=== PATIENT | male | born 1955 | race Caucasian/White ===

== ENCOUNTER 2018-04-22 15:50 | Inpatient (IN) ==
[2018-04-22] MEDS ORDERED: Morphine Inj 4 MG/ML Vial IV.PUSH ONE (16:10)
[2018-04-22] MEDS ORDERED: Sod Chloride 0.9% Inj 1,000 ML IV.SIG ONE ×2 (16:10)
[2018-04-22] MEDS ORDERED: Piperacil/Tazo 3.375 GM Premix 50 ML IV.SIG ONE (16:10)
[2018-04-22] MEDS ORDERED: Vancomycin Inj 1,000 MG in Sodium Chlor 0.9% Inj 250 ML IV.SIG ONE (16:10)
[2018-04-22] MEDS ORDERED: Acetaminophen 325 MG Tablet PO ONE ×2 (16:10→18:04)
--- NOTE | 2018-04-22 16:17 | ED ---
HPI General Chief complaint: Skin/Abscess/Foreign Body Stated complaint: Spider bite L thigh/swollen/discolored Time Seen by Provider: 04/22/18 16:02 Source: patient and RN notes reviewed Mode of arrival: ambulatory Limitations: no limitations History of Present Illness HPI narrative: 62-year-old male presents to the emergency department for evaluation of fever, cellulitis to the left thigh. Patient states that on Wednesday he started with a pustule to the left thigh. He went saw his primary care physician who placed him on Bactrim. He states his symptoms have been worsening. He went back to his primary care doctor today who referred him to the emergency department. Patient states fever started yesterday. He states he has been taking aspirin for his fever, last took yesterday. He has history of chronic pain, on [place], baclofen, morphine, hypertension. Current pain is 9/ 10. Moderate severity. MD complaint: Reports other (cellulitis left thigh) Onset (ago): day(s) (4) Location: Reports LLE Severity: moderate Severity scale (1-10): 10 Quality: Reports aching Pain Consistency: constant Relieving factors: none Exacerbating factors: none Context: Reports none Associated symptoms: Reports fever and chills Treatments prior to arrival: Reports antibiotic Related Data Home Medications Medication Instructions Recorded Confirmed baclofen 10 mg PO DAILY 04/22/18 04/22/18 celecoxib 200 mg PO BID 04/22/18 04/22/18 clonazepam 1 mg PO BID 04/22/18 04/22/18 hydrocodone-acetaminophen 1 tab PO Q6H 04/22/18 04/22/18 losartan 25 mg PO DAILY 04/22/18 04/22/18 morphine [MS Contin] 15 mg PO Q8H 04/22/18 04/22/18 pregabalin [Lyrica] 100 mg PO BID 04/22/18 04/22/18 sulfamethoxazole-trimethoprim 1 tab PO BID 04/22/18 04/22/18 [Bactrim DS] tamsulosin 0.4 mg PO DAILY 04/22/18 04/22/18 zolpidem 10 mg PO HS 04/22/18 04/22/18 Allergies Allergy/AdvReac Type Severity Reaction Status Date / Time No Known Allergies Allergy Verified 04/22/18 15:52 Review of Systems ROS: all other systems reviewed are negative PMFSH Medical History Medical History Arthritis (Acute) Hypertension (Acute) Surgical History Surgical History History of back surgery (Acute) History of neck surgery (Acute) Social History Social History Substance History: No History of Abuse Second Hand Smoke Exposure: No Smoking Status: Never smoker How Often Do You Have a Drink Containing Alcohol: Never Recent Travel in [facility] within the Last 8 Weeks: No Recent Out of Country Travel within the Last 8 Weeks: No Exam Narrative Exam Narrative: GENERAL: Well-nourished, well-developed ill-appearing male patient, temp of 102.9 SKIN: Focused skin assessment warm/dry. Patient has large area of erythema to the left anterior/medial thigh that measures approximately 21 cm x 23 cm with central area of induration, but no fluctuance. There is evidence of bulla within the erythematous region. No active drainage. HEAD: Normocephalic. Atraumatic. EYES: No scleral icterus. No injection or drainage. NECK: Supple, trachea midline. No JVD or lymphadenopathy. CARDIOVASCULAR: Regular rate and rhythm without murmurs, gallops, or rubs. Left pedal pulse is 2+. RESPIRATORY: Breath sounds equal bilaterally. No accessory muscle use. Lung sounds clear to auscultation. GASTROINTESTINAL: Abdomen soft, non-tender, nondistended. MUSCULOSKELETAL: No cyanosis, or edema. Neuro: Alert and oriented, but appears dazed. Motor and sensory testing WNL. No ataxia. No changes in speech. Course Initial Documented Vital Signs Temperature 102.9 F H 04/22/18 15:55 Pulse Rate 114 H 04/22/18 15:55 Respiratory Rate 18 04/22/18 15:55 Blood Pressure 172/86 H 04/22/18 15:55 Pulse Oximetry 96 04/22/18 15:55 Last Documented Vital Signs Temperature 102.9 F H 04/22/18 15:55 Pulse Rate 68 04/22/18 19:10 Respiratory Rate 16 04/22/18 19:10 Blood Pressure 160/83 H 04/22/18 19:10 Pulse Oximetry 96 04/22/18 17:01 Critical Care Time Critical Care Time: Yes Total Critical Care Time: 35 Attestation: Aggregate critical care time was 35 minutes. Time to perform other separately billable procedures was not included in the critical care time. My time did not include minutes spent treating any other patients simultaneously or on activities that did not directly contribute to the patient's treatment. The services I provided to this patient were to treat and/or prevent clinically significant deterioration that could result in: Disability, loss of life or limb I provided critical care services requiring my management, as noted below: Chart data review, documentation time, medication orders and management, vital sign assessments/reviewing monitor data, ordering and reviewing lab tests, ordering and interpreting/reviewing x-rays and diagnostic studies, care of the patient and discussion of the patient with the admitting physicians. Medical Decision Making VONNIE Attestation VONNIE supervised visit: Yes Attestation: I, Dr. Berrios, have reviewed the advance practice practitioner's documentation and am in agreement, met with the patient face to face, made the diagnosis, and the medical decision making was done by me. *My assessment and Findings: Patient is a 62-year-old male who presents with complaint of skin infection. On arrival he is tachycardic, febrile, ill- appearing and sepsis protocol was initiated. Exam is consistent with a skin infection with bulla in the area of erythema has been marked. He does have some pain on palpation outside of the erythematous areas. Labs are consistent with sepsis and infection. X-ray does not reveal any gas. CT shows infection deep to the muscle. Given patient's ill appearance I am concerned for cellulitis with likely bacteremia versus possible necrotizing fasciitis. I initially spoke with Dr. Ibarra, general surgery on-call, whom informed me that this would be a case for orthopedic surgery. I then spoke with Dr. Rojas, orthopedic surgeon on-call, whom recommended that the patient be emergently transferred to the main hospital and obtain an MRI as soon as possible. He has been hemodynamically stable and thus has been admitted to the hospitalist service at this time. MDM Narrative Medical decision making narrative: 62-year-old male presents to the emergency department for evaluation of fever, cellulitis left thigh. Patient has fever 1- 2.9, is tachycardic. Sepsis workup is initiated. IV access obtained. CBC, ESR , CMP, CRP, PTT, PT/INR, lactic acid, blood cultures x2 are ordered and pending. Patient is given normal saline 2 L IV bolus, vancomycin 1 g IV, Zosyn 3.375 g IV. CBC shows leukocytosis of 16.9. ESR is 11. CMP shows no acute abnormality. CRP is 16.50. Lactic acid is 2.1. PTT is 29.4. PT/INR is 12.5/1.2. X-ray of the left femur is negative. CT of the left femur with IV contrast is ordered and shows Impressive subcutaneous edema across the upper leg. The soft tissue edema does extend into the peripheral fibers of the vastus medialis muscle and the sartorius muscle without obvious drainable fluid collection or mass effect on the musculature My attending physician, Dr. Berrios, spoke with first with general surgery who referred to Ortho. Dr. Chaparro would like patient transferred [facility] and he will evaluate the patient there. Dr. Berrios admitted patient to Dr. Lopez. Medical Screen Exam Complete: Yes Emergency Medical Condition: Yes Differential Diagnosis Differential Diagnosis: Sepsis versus cellulitis versus abscess versus necrotizing fasciitis Medical Records Medical records reviewed: Yes I reviewed the patient's medical records. Lab Data Result diagrams: 04/22/18 16:10 04/22/18 16:10 Lab Results 04/22/18 04/22/18 04/22/18 Range/Units 16:10 16:10 16:10 CBC w Diff Auto diff final WBC 16.9 H (4.0-11.0) th/mm3 RBC 5.08 (4.50-5.90) mil/mm3 Hgb 15.4 (13.0-17.0) gm/dL Hct 46.7 (39.0-51.0) % MCV 91.9 (80.0-100.0) fL MCH 30.3 (27.0-34.0) pg MCHC 33.0 (32.0-36.0) % RDW 12.1 (11.6-17.2) % Plt Count 223 (150-450) th/mm3 MPV 8.6 (7.0-11.0) fL Neut % (Auto) 85.6 H (16.0-70.0) % Lymph % (Auto) 4.0 L (9.0-44.0) % [place] % (Auto) 7.2 (0.0-8.0) % Eos % (Auto) 0.0 (0.0-4.0) % Baso % (Auto) 3.2 H (0.0-2.0) % Neut # (Auto) 14.5 H (1.8-7.7) th/mm3 Lymph # (Auto) 0.7 L (1.0-4.8) th/mm3 [place] # (Auto) 1.2 H (0.0-0.9) th/mm3 Eos # (Auto) 0.0 (0.0-0.4) th/mm3 Baso # (Auto) 0.5 H (0.0-0.2) th/mm3 WBC Differential . Differential Comment . ESR (0-20) mm/hr PT 12.5 H (9.8-11.6) sec INR 1.2 Ratio APTT 29.4 (24.3-30.1) sec Sodium 135 L (136-145) meq/L Potassium 3.9 (3.5-5.1) meq/L Chloride 100 (98-107) meq/L Carbon Dioxide 25.9 (21.0-32.0) meq/L Anion Gap 9 (5-15) meq/L BUN 11 (7-18) mg/dL Creatinine 1.30 (0.60-1.30) mg/dL Estimated GFR 56 L (>89) mL/min Random Glucose 132 H (74-106) mg/dL Lactic Acid (0.4-2.0) mmol/L Calcium 8.7 (8.5-10.1) mg/dL Magnesium 1.9 (1.5-2.5) mg/dL Total Bilirubin 0.8 (0.2-1.0) mg/dL AST 23 (15-37) U/L ALT 100 H (12-78) U/L Alkaline Phosphatase 114 (45-117) U/L C-Reactive Protein (0.00-0.30) mg/dL Total Protein 7.4 (6.4-8.2) g/dL Albumin 3.4 (3.4-5.0) g/dL 04/22/18 04/22/18 04/22/18 Range/Units 16:10 16:10 16:10 CBC w Diff WBC (4.0-11.0) th/mm3 RBC (4.50-5.90) mil/mm3 Hgb (13.0-17.0) gm/dL Hct (39.0-51.0) % MCV (80.0-100.0) fL MCH (27.0-34.0) pg MCHC (32.0-36.0) % RDW (11.6-17.2) % Plt Count (150-450) th/mm3 MPV (7.0-11.0) fL Neut % (Auto) (16.0-70.0) % Lymph % (Auto) (9.0-44.0) % [place] % (Auto) (0.0-8.0) % Eos % (Auto) (0.0-4.0) % Baso % (Auto) (0.0-2.0) % Neut # (Auto) (1.8-7.7) th/mm3 Lymph # (Auto) (1.0-4.8) th/mm3 [place] # (Auto) (0.0-0.9) th/mm3 Eos # (Auto) (0.0-0.4) th/mm3 Baso # (Auto) (0.0-0.2) th/mm3 WBC Differential Differential Comment ESR 11 (0-20) mm/hr PT (9.8-11.6) sec INR Ratio APTT (24.3-30.1) sec Sodium (136-145) meq/L Potassium (3.5-5.1) meq/L Chloride (98-107) meq/L Carbon Dioxide (21.0-32.0) meq/L Anion Gap (5-15) meq/L BUN (7-18) mg/dL Creatinine (0.60-1.30) mg/dL Estimated GFR (>89) mL/min Random Glucose (74-106) mg/dL Lactic Acid 2.1 H (0.4-2.0) mmol/L Calcium (8.5-10.1) mg/dL Magnesium (1.5-2.5) mg/dL Total Bilirubin (0.2-1.0) mg/dL AST (15-37) U/L ALT (12-78) U/L Alkaline Phosphatase (45-117) U/L C-Reactive Protein 16.50 H (0.00-0.30) mg/dL Total Protein (6.4-8.2) g/dL Albumin (3.4-5.0) g/dL 04/22/18 Range/Units 18:50 CBC w Diff WBC (4.0-11.0) th/mm3 RBC (4.50-5.90) mil/mm3 Hgb (13.0-17.0) gm/dL Hct (39.0-51.0) % MCV (80.0-100.0) fL MCH (27.0-34.0) pg MCHC (32.0-36.0) % RDW (11.6-17.2) % Plt Count (150-450) th/mm3 MPV (7.0-11.0) fL Neut % (Auto) (16.0-70.0) % Lymph % (Auto) (9.0-44.0) % [place] % (Auto) (0.0-8.0) % Eos % (Auto) (0.0-4.0) % Baso % (Auto) (0.0-2.0) % Neut # (Auto) (1.8-7.7) th/mm3 Lymph # (Auto) (1.0-4.8) th/mm3 [place] # (Auto) (0.0-0.9) th/mm3 Eos # (Auto) (0.0-0.4) th/mm3 Baso # (Auto) (0.0-0.2) th/mm3 WBC Differential Differential Comment ESR (0-20) mm/hr PT (9.8-11.6) sec INR Ratio APTT (24.3-30.1) sec Sodium (136-145) meq/L Potassium (3.5-5.1) meq/L Chloride (98-107) meq/L Carbon Dioxide (21.0-32.0) meq/L Anion Gap (5-15) meq/L BUN (7-18) mg/dL Creatinine (0.60-1.30) mg/dL Estimated GFR (>89) mL/min Random Glucose (74-106) mg/dL Lactic Acid 1.5 (0.4-2.0) mmol/L Calcium (8.5-10.1) mg/dL Magnesium (1.5-2.5) mg/dL Total Bilirubin (0.2-1.0) mg/dL AST (15-37) U/L ALT (12-78) U/L Alkaline Phosphatase (45-117) U/L C-Reactive Protein (0.00-0.30) mg/dL Total Protein (6.4-8.2) g/dL Albumin (3.4-5.0) g/dL Imaging Data Radiologist's impression: Femur X-Ray 04/22/18 16:21 CONCLUSION: Negative examination Femur CT 04/22/18 16:57 CONCLUSION: 1. Impressive subcutaneous edema across the upper leg. The soft tissue edema does extend into the peripheral fibers of the vastus medialis muscle and the sartorius muscle without obvious drainable fluid collection or mass effect on the musculature. Discharge Plan Discharge Disposition Patient Disposition: [place] [facility] [place] Details Diagnosis: Sepsis affecting skin Physicians Team ED Provider: [place] Berrios ED Midlevel Provider: Lizet Sanchez Primary Care Provider: Reggie Escalante Attending Provider: Drake Lopez Other Providers: Cristhian Chaparro Status ED Status: Left Department Discharge Information Discharge Date/Time: 04/22/18 19:11
[2018-04-22 16:23] LABS: Baso # (Auto) 0.5 th/mm3 (0.0-0.2); Baso % (Auto) 3.2 % (0.0-2.0); Hematocrit 46.7 % (39.0-51.0); Hemoglobin 15.4 gm/dL (13.0-17.0); Lymph # (Auto) 0.7 th/mm3 (1.0-4.8); Mean Corpuscular Hemoglobin 30.3 pg (27.0-34.0); Mean Corpuscular Volume 91.9 fL (80.0-100.0); Mean Platelet Volume 8.6 fL (7.0-11.0); Mono # (Auto) 1.2 th/mm3 (0.0-0.9); Mono % (Auto) 7.2 % (0.0-8.0); Neut # (Auto) 14.5 th/mm3 (1.8-7.7); Neut % (Auto) 85.6 % (16.0-70.0); Platelet Count 223 th/mm3 (150-450); Red Blood Count 5.08 mil/mm3 (4.50-5.90); Red Cell Distribution Width 12.1 % (11.6-17.2); White Blood Count 16.9 th/mm3 (4.0-11.0)
[2018-04-22 16:31] LABS: Chloride 100 meq/L (98-107); Potassium 3.9 meq/L (3.5-5.1); Sodium 135 meq/L (136-145)
[2018-04-22 16:34] LABS: Albumin 3.4 g/dL (3.4-5.0); Anion Gap 9 meq/L (5-15); Blood Urea Nitrogen 11 mg/dL (7-18); Calcium 8.7 mg/dL (8.5-10.1); Carbon Dioxide 25.9 meq/L (21.0-32.0); Glucose,Random 132 mg/dL (74-106); Magnesium 1.9 mg/dL (1.5-2.5)
[2018-04-22 16:35] LABS: Activated Partial Thrombo Time 29.4 sec (24.3-30.1); INR 1.2 Ratio; Prothrombin Time 12.5 sec (9.8-11.6)
[2018-04-22 16:37] LABS: Alanine Aminotransferase 100 U/L (12-78); Aspartate Aminotransferase 23 U/L (15-37); Glomerular Filtration Rate 56 mL/min (>89)
[2018-04-22 16:39] LABS: Total Protein 7.4 g/dL (6.4-8.2)
[2018-04-22 16:40] LABS: Alkaline Phosphatase 114 U/L (45-117)
--- NOTE | 2018-04-22 16:54 | XR ---
EXAM DATE: 04/22/2018 4:21 PM EDT AGE/SEX: 62 years / Male INDICATIONS: Pain, swelling in left distal femur from spider bite CLINICAL DATA: This is the patient's initial encounter. Patient reports that signs and symptoms have been present for 1 day and indicates a pain score of 5/10. MEDICAL/SURGICAL HISTORY: None. None. COMPARISON: . FINDINGS: Bony structures are intact and in normal alignment. Osseous density is normal. Soft tissues are unre markable. No radiopaque foreign bodies seen. CONCLUSION: Negative examination Electronically signed by: Riley Zeng MD 04/22/2018 4:53 PM EDT
[2018-04-22] MEDS ORDERED: Clindamycin 900 mg/NS Premix 900 MG/50 ML PIGGYBACK IV.SIG ONE (17:15)
[2018-04-22] MEDS ORDERED: Vancomycin Consult Pharmacy OTHER PRN (17:53)
--- NOTE | 2018-04-22 17:59 | CT ---
EXAM DATE: 04/22/2018 5:09 PM EDT AGE/SEX: 62 years / Male INDICATIONS: Fever. Pain, redness and swelling of distal anterior left thigh. Evaluate for cellulit is. CLINICAL DATA: This is the patient's initial encounter. Patient reports that signs and symptoms have been present for 4 - 6 days and indicates a pain score of 9/10. MEDICAL/SURGICAL HISTORY: Hypertension. Fusion, cervical. Low back surgery. RADIATION DOSE: 15.72 CTDI (mGy) COMPARISON: No prior exams available for comparison. TECHNIQUE: Multiple contiguous axial images were acquired using a multirow detector CT scanner after the intravenous administration of 90 ml Omnipaque 350 (iohexol) nonionic water-soluble contrast as a single exam dose. Multiplanar reconstruction was performed in the sagittal and coronal planes. Usi ng automated exposure control and adjustment of the mA and/or kV according to patient size, radiation dose was kept as low as reasonably achievable to obtain optimal diagnostic quality images. DICOM fo rmat image data is available electronically for review and comparison. FINDINGS: Bones: The bony structures about the forefoot are in normal alignment. The metatarsi, phalanges, an d distal tarsal row osseous structures are intact. No fracture is seen. Joints: No significant arthropathy or bony hypertrophy is seen. Soft Tissues: There is marked soft tissue edema in the anterior and medial aspects of the lower leg. There is also marked edema laterally in the subcutaneous fat. The edema does extend into the vastus medialis muscle and within some of the fibers of the sartorius muscle. I do not see an obvious draina ble fluid collection. Other: No foreign bodies seen. Post Contrast: No abnormal areas of enhancement are seen in the marrow or soft tissues. The deep kaia ous system is patent. CONCLUSION: 1. Impressive subcutaneous edema across the upper leg. The soft tissue edema does extend into the pe ripheral fibers of the vastus medialis muscle and the sartorius muscle without obvious drainable flui d collection or mass effect on the musculature. Electronically signed by: Riley Zeng MD 04/22/2018 5:58 PM EDT
[2018-04-22] MEDS: Vancomycin Inj 1,500 MG in Sodium Chlor 0.9% Inj 500 ML IV.SIG SCH (21:23)
[2018-04-22] MEDS: Piperacil/Tazo 3.375 GM Premix 50 ML IV.SIG SCH (21:23)
[2018-04-22] MEDS: Sod Chloride 0.9% Inj 1,000 ML IV.CONT SCH (21:23)
--- NOTE | 2018-04-22 21:23 | MR ---
EXAM DATE: 04/22/2018 8:11 PM EDT AGE/SEX: 62 years / Male INDICATIONS: Left leg swelling around anterior distal thigh due to a spider bite five days ago. CLINICAL DATA: This is the patient's initial encounter. Patient reports that signs and symptoms have been present for 4 - 6 days and indicates a pain score of 8/10. MEDICAL/SURGICAL HISTORY: None. Fusion, cervical. Fusion, lumbar. COMPARISON: No prior exams available for comparison. TECHNIQUE: Multiplanar, multisequence MRI examination was performed without and with 10 ml Gadavist (gadobutrol) contrast as single exam dose. FINDINGS: There is extensive cellulitis involving the thigh subcutaneous tissues, especially medially. There ar e some nonloculated sheets of fluid in the deep subcutaneous tissues around the musculature but no lo culated rim-enhancing fluid is seen to suggest drainable abscess. There is a small knee joint effusio n. There is no significant marrow signal abnormality in the femur to suggest osteomyelitis. CONCLUSION: 1. Extensive cellulitis of the right thigh especially medially without evidence for osteomyelitis or discrete abscess. Electronically signed by: Lee Merino MD 04/22/2018 9:21 PM EDT
[2018-04-22] MEDS: Morphine Inj 4 MG/ML Vial IV.PUSH PRN (21:34)
[2018-04-22] MEDS: Acetaminophen 325 MG Tablet PO PRN (21:34)
[2018-04-22] MEDS ORDERED: Gadobutrol PF 10 MMOL/10 ML Vial (for RAD) IV.SIG ONE (21:47)
--- NOTE | 2018-04-22 22:46 | P.HPIM ---
History of Present Illness Service: [facility] Primary Care Physician: Reggie Escalante DO Chief Complaint: Left thigh discoloration, swelling, and pain History of Present Illness: Mr. Burris is a 62 year-old male with a history of arthritis, chronic back and neck pain, and hypertension who presented to the [place] [facility] complaining of fever (up to 103 starting 04/20), left thigh pain with purplish discoloration of skin, and swelling since Wednesday 04/18. He was found to have sepsis from left thigh cellulitis with concern for necrotizing fasciitis and was transferred to [facility] upon the recommendation of the orthopedic surgeon for further evaluation and management under the hospitalist service. MRI upon arrival showed extensive cellulitis of right thigh with no osteomyelitis or discrete abscess. The patient reports that symptoms began with a possible spider bite to left thigh. He was placed on bactrim by his PCP but his symptoms continued to progress and worsen throughout the week despite treatment. His temperature was 102.9 on arrival. Denies any history of diabetes mellitus. . Inpatient Certification: I certify that the inpatient services were ordered in accordance with Medicare regulations governing the order. This includes certification that hospital inpatient services are reasonable and necessary and in the case of services not specified as inpatient-only under 42 CFR 419.22(n), that they are appropriately provided as inpatient services in accordance to with the 2-midnight benchmark under 43 CFR 412.3(e) Estimated Total Length of Stay (Days): 3 Plans for Post Hospital Care: Home Review of Systems All other systems reviewed negative except as stated in HPI [facility] - History History Provided By: Patient - Medical History Medical History: Medical History (Last Reviewed 04/23/18 @ 03:59 by SHE oMrton) Arthritis Hypertension - Surgical History Surgical History: Surgical History (Last Reviewed 04/23/18 @ 03:59 by SHE Morton) History of back surgery History of neck surgery - Family History Family History: Family History (Last Updated 04/23/18 @ 04:00 by SHE Morton) Other Family history of cancer - Social History I have reviewed the patient's Social History: Yes - Tobacco History Second Hand Smoke Exposure: No Smoking Status: Never smoker - Alcohol History How Often Do You Have a Drink Containing Alcohol: Never - Substance Use History Substance History: No History of Abuse - Travel History Recent Travel in the [facility] Within the Last 8 Weeks: No Recent Travel Out of the Country Within the Last 8 Weeks: No - Immunization History Tetanus Immunization: Unsure Medications and Allergies Active Medications: Active Medications Acetaminophen (Tylenol) 650 mg PO Q4H PRN PRN Reason: fever Last Admin: 04/22/18 21:34 Dose: 650 mg Sodium Chloride (Ns Inj) 1,000 mls @ 125 mls/hr IV.CONT .Q8H MARYURI Last Admin: 04/22/18 21:23 Dose: 125 mls/hr Piperacillin/Tazobactam/Dextrose (Zosyn 3.375 Gm Premix) 50 mls @ 100 mls/hr IV.SIG Q6H MARYURI Last Infusion: 04/22/18 22:23 Dose: Infused Vancomycin HCl 1,500 mg/ (Sodium Chloride) 515 mls @ 250 mls/hr IV.SIG Q12H MARYURI Last Admin: 04/22/18 21:23 Dose: 250 mls/hr Miscellaneous Information ([facility] Ordered Lab Info) 1 each OTHER ONCE ONE Stop: 04/24/18 09:46 Morphine Sulfate (Morphine Inj) 2 mg IV.PUSH Q4H PRN PRN Reason: acute pain Last Admin: 04/22/18 21:34 Dose: 2 mg Ondansetron HCl (Zofran Inj) 4 mg IV.PUSH Q8H PRN PRN Reason: nausea Pharmacy Profile Note (Vancomycin Consult Pharmacy) 1 each OTHER UNSCH PRN PRN Reason: Pharmacy to dose Allergies Allergy/AdvReac Type Severity Reaction Status Date / Time No Known Allergies Allergy Verified 04/22/18 15:52 Home Medications Medication Instructions Recorded Confirmed Type baclofen 10 mg PO DAILY 04/22/18 04/22/18 History celecoxib 200 mg PO BID 04/22/18 04/22/18 History clonazepam 1 mg PO BID 04/22/18 04/22/18 History hydrocodone-acetaminophen 1 tab PO Q6H 04/22/18 04/22/18 History losartan 25 mg PO DAILY 04/22/18 04/22/18 History morphine [MS Contin] 15 mg PO Q8H 04/22/18 04/22/18 History pregabalin [Lyrica] 100 mg PO BID 04/22/18 04/22/18 History sulfamethoxazole-trimethoprim 1 tab PO BID 04/22/18 04/22/18 History [Bactrim DS] tamsulosin 0.4 mg PO DAILY 04/22/18 04/22/18 History zolpidem 10 mg PO HS 04/22/18 04/22/18 History Exam Vital signs: Vital Signs 04/22/18 15:55 04/22/18 16:35 04/22/18 17:01 Temperature 102.9 F H Pulse Rate 114 H 110 H 101 H Respiratory Rate 18 16 Blood Pressure 172/86 H 152/73 H Pulse Oximetry 96 96 04/22/18 17:02 04/22/18 19:10 04/22/18 21:00 Temperature 100.9 F H Pulse Rate 68 84 Respiratory Rate 16 16 18 Blood Pressure 160/83 H 142/67 H Pulse Oximetry 94 L Intake & Output 04/22/18 04/22/18 04/23/18 06:59 18:59 06:59 Intake Total 2049 300 / 300 Balance 2049 300 / 300 Weight 114.6 kg Intake: IV 2049 300 / 300 Zosyn 3.375 GM Premix 50 ML @ 50 / 50 50 / 50 100 mls/hr IV.SIG Q6H MARYURI Rx#: [id number] NS Inj 1,000 ML @ Wide Open IV. 1999 / 1999 SIG BOLUS ONE Rx#:[id number] Vancomycin Inj 1,000 MG In NS 250 / 250 Inj 250 ML @ 250 mls/hr IV.SIG ONCE ONE Rx#:[id number] Narrative: GENERAL: This is an overweight older male patient, in no apparent distress. SKIN: Left thigh with large erythematous area along with swelling and discomfort with palpation. The area has been marked with a marker -and affected area has not extended further and may have improved slightly. HEAD: Atraumatic. Normocephalic. EYES: No scleral icterus. No injection or drainage. ENT: Nose without bleeding, purulent drainage. NECK: Trachea midline. No JVD. CARDIOVASCULAR: Regular rate and rhythm without murmurs, gallops, or rubs. RESPIRATORY: Clear to auscultation. Breath sounds equal bilaterally. No wheezes , rales, or rhonchi. GASTROINTESTINAL: Abdomen soft, non-tender, nondistended. No guarding. MUSCULOSKELETAL: No calf tenderness. Moves all extremities well. NEUROLOGICAL: Awake and alert. Motor and sensory grossly within normal limits. Normal speech. . Results - Labs CBC & Chem 7: 04/22/18 16:10 04/22/18 16:10 Labs: Short CBC 04/22/18 Range/Units 16:10 WBC 16.9 H (4.0-11.0) th/mm3 Hgb 15.4 (13.0-17.0) gm/dL Hct 46.7 (39.0-51.0) % Plt Count 223 (150-450) th/mm3 BMP 04/22/18 16:10 Sodium 135 L Potassium 3.9 Chloride 100 Carbon Dioxide 25.9 BUN 11 Creatinine 1.30 Calcium 8.7 Liver Function 04/22/18 Range/Units 16:10 Total Bilirubin 0.8 (0.2-1.0) mg/dL AST 23 (15-37) U/L ALT 100 H (12-78) U/L Alkaline Phosphatase 114 (45-117) U/L Albumin 3.4 (3.4-5.0) g/dL - Imaging Impressions Femur MRI 04/22/18 00:00 CONCLUSION: 1. Extensive cellulitis of the right thigh especially medially without evidence for osteomyelitis or discrete abscess. Femur X-Ray 04/22/18 16:21 CONCLUSION: Negative examination Femur CT 04/22/18 16:57 CONCLUSION: 1. Impressive subcutaneous edema across the upper leg. The soft tissue edema does extend into the peripheral fibers of the vastus medialis muscle and the sartorius muscle without obvious drainable fluid collection or mass effect on the musculature. Caprini VTE Risk Assessment Caprini VTE Risk Assessment: Moderate/High Risk (score >= 2) Caprini Risk Assessment Model: Point Value = 1 Point Value = 2 Point Value = 3 Point Value = 5 Age 41-60 Minor surgery BMI > 25 kg/m2 Swollen legs Varicose veins or History of unexplained or recurrent spontaneous Oral contraceptives or hormone replacement Sepsis (< 1 month) Serious lung disease, including pneumonia (< 1 month) Abnormal pulmonary function Acute myocardial infarction Congestive heart failure (< 1 month) History of inflammatory bowel disease Medical patient at bed rest Age 61-74 Arthroscopic surgery Major open surgery (> 45 min) Laparoscopic surgery (> 45 min) Malignancy Confined to bed (> 72 hours) Immobilizing plaster cast Central venous access Age >= 75 History of VTE Family history of VTE Factor V Leiden Prothrombin [id number] Lupus anticoagulant Anticardiolipin antibodies Elevated serum homocysteine Heparin-induced thrombocytopenia Other congenital or acquired thrombophilia Stroke (< 1 month) Elective arthroplasty Hip, pelvis, or leg fracture Acute spinal cord injury (< 1 month) Prophylaxis Regimen: Total Risk Factor Score Risk Level Prophylaxis Regimen 0-1 Low Early ambulation 2 Moderate Order ONE of the following: *Sequential Compression Device (SCD) *Heparin 5000 units SQ BID 3-4 Higher Order ONE of the following medications: *Heparin 5000 units SQ TID *Enoxaparin/Lovenox 40 mg SQ daily (WT < 150 kg, CrCl > 30 mL/min) *Enoxaparin/Lovenox 30 mg SQ daily (WT < 150 kg, CrCl > 10-29 mL/min) *Enoxaparin/Lovenox 30 mg SQ BID (WT < 150 kg, CrCl > 30 mL/min) AND/OR *Sequential Compression Device (SCD) 5 or more Highest Order ONE of the following medications: *Heparin 5000 units SQ TID (Preferred with Epidurals) *Enoxaparin/Lovenox 40 mg SQ daily (WT < 150 kg, CrCl > 30 mL/min) *Enoxaparin/Lovenox 30 mg SQ daily (WT < 150 kg, CrCl > 10-29 mL/min) *Enoxaparin/Lovenox 30 mg SQ BID (WT < 150 kg, CrCl > 30 mL/min) AND *Sequential Compression Device (SCD) Assessment and Plan - Plan Mr. Burris is a 62 year-old male with a history of arthritis, chronic back and neck pain, and hypertension who presented to the [place] ER complaining of fever (up to 103 starting 04/20), left thigh pain with purplish discoloration of skin, and swelling since Wednesday 04/18. He was found to have sepsis from left thigh cellulitis with concern for necrotizing fasciitis and was transferred to [facility] upon the recommendation of the orthopedic surgeon for further evaluation and management under the hospitalist service. Sepsis secondary to left thigh cellulitis with concern for necrotizing fasciitis -Temperature 102.9 on arrival, WBC 16.9 with neutrophilia, lactic acid initially 2.1 (1.5 on repeat), CRP 16.5 -Left femur CT in ED showed "impressive subcutaneous edema across the upper leg. The soft tissue edema does extend into the peripheral fibers of the vastus medialis muscle and the sartorius muscle without obvious drainable fluid collection or mass-effect on the musculature." -continue Zosyn and Vancomycin, acetaminophen PRN fever -Dr. Chaparro was consulted in ED - recommended MRI and transfer to [facility] -MRI upon arrival at [facility] showed extensive cellulitis of right thigh with no osteomyelitis or discrete abscess -We will continue home chronic pain medications as verified by me on the needmade website for prescription narcotic monitoring (he has prescriptions for morphine sulfate sustained release 15 mg every 8 hours, [place] 10/325 every 6 hours, Ambien 10 mg qhs, and Klonopin 1 mg p.o. twice daily filled in April 2018) and will add morphine 2 mg IV every 4 hours as needed breakthrough pain -Await results of blood cultures -Continuous cardiac telemetry to monitor heart rate and rhythm -NPO except for medications until cleared by Dr. Chaparro/orthopedic surgeon -Repeat CBC in a.m. and follow results Hypertension -Continue home losartan -Monitor blood pressure readings -Adjust treatments as indicated DVT prophylaxis -SCDs on unaffected extremity ("nonoperative" leg) Discussed Condition With: patient and Dr. Pedro .
[2018-04-23] MEDS: Morphine Sulfate 15 MG SR Tablet PO SCH ×4 (00:30→22:48)
[2018-04-23] MEDS: Piperacil/Tazo 3.375 GM Premix 50 ML IV.SIG SCH ×4 (04:45→21:16)
[2018-04-23] MEDS: Sod Chloride 0.9% Inj 1,000 ML IV.CONT SCH ×3 (04:45→23:05)
[2018-04-23] MEDS: Morphine Inj 4 MG/ML Vial IV.PUSH PRN (04:48)
[2018-04-23] MEDS: Acetaminophen 325 MG Tablet PO PRN (06:46)
--- NOTE | 2018-04-23 06:52 | P.CONOP ---
[facility] Orthopedics Consult Note - [facility] Consult date: 04/23/18 Chief complaint: Sepsis, Cellulitis vs Necrotizing Fasciitis Narrative: This patient is a 62-year-old man who does have a history of arthritis, chronic back pain and neck pain and hypertension. The patient thinks he had a spider bite about 5 or 6 days ago. He developed a little bit of redness. He contacted his primary care physician he was placed on Bactrim but then unfortunately about 2-3 days ago the patient started developing much more significant redness and had rapid progression of pain, swelling and redness about the thigh. The patient was having a fever up to 103. The patient presented to the [facility] emergency room. A CT scan was obtained of the thigh. The [facility] emergency room contacted me we reviewed the results of the CT scan and the ER physician had determined that the patient's LRINEC score for necrotizing fasciitis was 5. I had recommended to obtain a stat MRI. They felt that this would be easy to obtain at the [facility] on a stat basis so we transferred the patient to the [facility]. The MRI was done last night. I did review the images. The patient states that now that he has been admitted to the hospital and on intravenous antibiotics he does feel little bit better and he feels like his fever is breaking. Review of Systems All other systems reviewed negative except as stated in [facility] PMFSH - History History Provided By: Patient - Medical History Medical History: Medical History (Last Reviewed 04/23/18 @ 06:45 by Cristhian Chaparro MD) Arthritis Hypertension - Surgical History Surgical History: Surgical History (Last Reviewed 04/23/18 @ 06:45 by Cristhian Chaparro MD) History of back surgery History of neck surgery - Family History Family History: Family History (Last Reviewed 04/23/18 @ 06:45 by Cristhian Chaparro MD) Other Family history of cancer - Tobacco History Second Hand Smoke Exposure: No Smoking Status: Never smoker - Alcohol History How Often Do You Have a Drink Containing Alcohol: Never - Substance Use History Substance History: No History of Abuse - Travel History Recent Travel in the [place] Within the Last 8 Weeks: No Recent Travel Out of the Country Within the Last 8 Weeks: No - Immunization History Tetanus Immunization: Unsure Medications and Allergies Active Medications: Active Medications Acetaminophen (Tylenol) 650 mg PO Q4H PRN PRN Reason: fever Last Admin: 04/22/18 21:34 Dose: 650 mg Hydrocodone Bitart/Acetaminophen ([place] 10/325) 1 tab PO Q6H PRN PRN Reason: pain > 4 Last Admin: 04/23/18 02:19 Dose: 1 tab Baclofen (Lioresal) 10 mg PO DAILY [facility] Clonazepam (Klonopin) 1 mg PO BID [facility] Sodium Chloride (Ns Inj) 1,000 mls @ 125 mls/hr IV.CONT .Q8H [facility] Last Infusion: 04/23/18 05:20 Dose: Infused Piperacillin/Tazobactam/Dextrose (Zosyn 3.375 Gm Premix) 50 mls @ 100 mls/hr IV.SIG Q6H [facility] Last Infusion: 04/23/18 05:20 Dose: Infused Vancomycin HCl 1,500 mg/ (Sodium Chloride) 515 mls @ 250 mls/hr IV.SIG Q12H [facility] Last Infusion: 04/23/18 00:15 Dose: Infused Losartan Potassium (Cozaar) 25 mg PO DAILY [facility] Miscellaneous Information ([facility] Ordered Lab Info) 1 each OTHER ONCE ONE Stop: 04/24/18 09:46 Morphine Sulfate (Morphine Inj) 2 mg IV.PUSH Q4H PRN PRN Reason: BREAKTHROUGH PAIN Last Admin: 04/23/18 04:48 Dose: 2 mg Morphine Sulfate (Oramorph Sr) 15 mg PO Q8H [facility] Last Admin: 04/23/18 00:30 Dose: 15 mg Ondansetron HCl (Zofran Inj) 4 mg IV.PUSH Q8H PRN PRN Reason: nausea Pharmacy Profile Note (Vancomycin Consult Pharmacy) 1 each OTHER UNSCH PRN PRN Reason: Pharmacy to dose Tamsulosin HCl (Flomax) 0.4 mg PO DAILY [facility] Zolpidem Tartrate (Ambien) 10 mg PO HS PRN PRN Reason: INSOMNIA Last Admin: 04/22/18 23:57 Dose: 10 mg Allergies Allergy/AdvReac Type Severity Reaction Status Date / Time No Known Allergies Allergy Verified 04/22/18 15:52 Home Medications Medication Instructions Recorded Confirmed Type baclofen 10 mg PO DAILY 04/22/18 04/22/18 History celecoxib 200 mg PO BID 04/22/18 04/22/18 History clonazepam 1 mg PO BID 04/22/18 04/22/18 History hydrocodone-acetaminophen 1 tab PO Q6H 04/22/18 04/22/18 History losartan 25 mg PO DAILY 04/22/18 04/22/18 History morphine [MS Contin] 15 mg PO Q8H 04/22/18 04/22/18 History pregabalin [Lyrica] 100 mg PO BID 04/22/18 04/22/18 History sulfamethoxazole-trimethoprim 1 tab PO BID 04/22/18 04/22/18 History [Bactrim DS] tamsulosin 0.4 mg PO DAILY 04/22/18 04/22/18 History zolpidem 10 mg PO HS 04/22/18 04/22/18 History Exam Vital signs: Vital Signs 04/22/18 15:55 04/22/18 16:35 04/22/18 17:01 Temperature 102.9 F H Pulse Rate 114 H 110 H 101 H Respiratory Rate 18 16 Blood Pressure 172/86 H 152/73 H Pulse Oximetry 96 96 04/22/18 17:02 04/22/18 19:10 04/22/18 21:00 Temperature 100.9 F H Pulse Rate 68 84 Respiratory Rate 16 16 18 Blood Pressure 160/83 H 142/67 H Pulse Oximetry 94 L Intake & Output 04/22/18 04/22/18 04/23/18 06:59 18:59 06:59 Intake Total 2049 2865 / 2865 Balance 2049 2865 / 2865 Weight 114.6 kg Intake: IV 2049 2865 / 2865 NS Inj 1,000 ML @ 125 mls/hr IV 1999 .CONT .Q8H [facility] Rx#:[id number] Zosyn 3.375 GM Premix 50 ML @ 50 / 50 100 / 100 100 mls/hr IV.SIG Q6H [facility] Rx#: [id number] NS Inj 1,000 ML @ Wide Open IV. 1999 SIG BOLUS ONE Rx#:[id number] Vancomycin Inj 1,000 MG In NS 250 / 250 Inj 250 ML @ 250 mls/hr IV.SIG ONCE ONE Rx#:[id number] Vancomycin Inj 1,500 MG In NS 515 / 515 Inj 500 ML @ 250 mls/hr IV.SIG Q12H [facility] Rx#:[id number] Narrative: GENERAL: The patient is awake, alert and oriented x3. The patient is in mild distress, and he does seem to have some chills PSYCHIATRIC: Normal affect, insight, and judgment. HEENT: Head is atraumatic. Oropharynx is moist. Extraocular muscles are intact. NECK: Non-tender and supple. LUNGS: No audible wheezing. He has normal inspiratory effort with no signs of dyspnea HEART: Regular rate and rhythm. ABDOMEN: Soft, nontender, and nondistended. BACK: No CVA tenderness. EXTREMITIES/SKIN/NEURO/VASCULAR: The left leg shows extensive cellulitis of the thigh concentrated mostly over the anteromedial aspect of the distal thigh. The cellulitis is outlined by a sharpie marker. There is one area with a cellulitis has reacted but then there is another area where it has extended beyond the lines that were drawn yesterday. I remove the Band-Aid and I found a wound which was about 1 cm x 1 cm with a little bit of central necrosis and as I palpated this area I was able to express a little bit of purulence. The surrounding subcutaneous tissue did feel very indurated and may have had a little bit of fluctuance to it. The knee still had fairly good range of motion with mild limitation. I did not appreciate a definitive effusion but it is hard to tell based on the exam. He does not have a lot of swelling down by the ankle. He moves the toes well. He has a 2+ dorsalis pedis pulse. Results - Labs Result Diagrams: 04/22/18 16:10 04/22/18 16:10 Labs: Laboratory Results - last 24 hr 04/22/18 04/22/18 04/22/18 16:10 16:10 16:10 CBC w Diff Auto diff final WBC 16.9 H RBC 5.08 Hgb 15.4 Hct 46.7 MCV 91.9 MCH 30.3 MCHC 33.0 RDW 12.1 Plt Count 223 MPV 8.6 Neut % (Auto) 85.6 H Lymph % (Auto) 4.0 L Hooker % (Auto) 7.2 Eos % (Auto) 0.0 Baso % (Auto) 3.2 H Neut # (Auto) 14.5 H Lymph # (Auto) 0.7 L Hooker # (Auto) 1.2 H Eos # (Auto) 0.0 Baso # (Auto) 0.5 H WBC Differential . Differential Comment . ESR PT 12.5 H INR 1.2 APTT 29.4 Sodium 135 L Potassium 3.9 Chloride 100 Carbon Dioxide 25.9 Anion Gap 9 BUN 11 Creatinine 1.30 Estimated GFR 56 L Random Glucose 132 H Lactic Acid Calcium 8.7 Magnesium 1.9 Total Bilirubin 0.8 AST 23 ALT 100 H Alkaline Phosphatase 114 C-Reactive Protein Total Protein 7.4 Albumin 3.4 04/22/18 04/22/18 04/22/18 16:10 16:10 16:10 CBC w Diff WBC RBC Hgb Hct MCV MCH MCHC RDW Plt Count MPV Neut % (Auto) Lymph % (Auto) Hooker % (Auto) Eos % (Auto) Baso % (Auto) Neut # (Auto) Lymph # (Auto) Hooker # (Auto) Eos # (Auto) Baso # (Auto) WBC Differential Differential Comment ESR 11 PT INR APTT Sodium Potassium Chloride Carbon Dioxide Anion Gap BUN Creatinine Estimated GFR Random Glucose Lactic Acid 2.1 H Calcium Magnesium Total Bilirubin AST ALT Alkaline Phosphatase C-Reactive Protein 16.50 H Total Protein Albumin 04/22/18 18:50 CBC w Diff WBC RBC Hgb Hct MCV MCH MCHC RDW Plt Count MPV Neut % (Auto) Lymph % (Auto) Hooker % (Auto) Eos % (Auto) Baso % (Auto) Neut # (Auto) Lymph # (Auto) Hooker # (Auto) Eos # (Auto) Baso # (Auto) WBC Differential Differential Comment ESR PT INR APTT Sodium Potassium Chloride Carbon Dioxide Anion Gap BUN Creatinine Estimated GFR Random Glucose Lactic Acid 1.5 Calcium Magnesium Total Bilirubin AST ALT Alkaline Phosphatase C-Reactive Protein Total Protein Albumin - Diagnostic results Imaging: Impressions Femur MRI 04/22/18 00:00 CONCLUSION: 1. Extensive cellulitis of the right thigh especially medially without evidence for osteomyelitis or discrete abscess. I reviewed the images. I am concerned potentially about fluid around the deep fascial layer Femur X-Ray 04/22/18 16:21 CONCLUSION: Negative examination I have reviewed the images for this radiology study. I agree with the interpretation given by the radiologist. Femur CT 04/22/18 16:57 CONCLUSION: 1. Impressive subcutaneous edema across the upper leg. The soft tissue edema does extend into the peripheral fibers of the vastus medialis muscle and the sartorius muscle without obvious drainable fluid collection or mass effect on the musculature. I have reviewed the images for this radiology study. I agree with the interpretation given by the radiologist. Assessment and Plan - Assessment and Plan 62-year-old man with likely spider bite and possible necrotizing fasciitis with significant cellulitis. We discussed that this is a serious condition effecting this patient's extremity. Nonoperative and operative options were discussed and reviewed. Potential consequences of both of these options were reviewed. This patient's LRINEC score of 5 is borderline for necrotizing fasciitis. The MRI is somewhat suspicious for this as well but does not reveal definitive abscess. The patient does have some purulence coming out of this wound on palpation. Based on all of these factors I do feel that it would be prudent to move forward with urgent surgical management. This would consist of an irrigation and debridement with possible placement of wound VAC. The patient understands he may require multiple surgeries and he may have an open wound which will need to be managed over time. The other option is to continue with the intravenous antibiotics and observe for the next 24 hours or so. The patient is agreeable to move forward with surgical management which at this point I feel is the most prudent option. This option does ultimately have the best chance of resolution of his condition. Since the patient did have a little bit of purulent drainage I do feel that this problem is more extensive than just standard cellulitis. I am also concerned that some of the cellulitis has progressed beyond the marking pen on his skin even though the patient has been on antibiotics. I explained to the patient that he may have a small incision but depending on intraoperative findings this incision could be quite extensive. The patient would like to move forward with urgent surgical management for this condition. This is surgery should be considered non-elective, given that this patient presented emergently to the hospital, and the decision to proceed with surgery was derived from this presentation. Significantly delaying surgery ( other than for medical clearance) has the potential to adversely effect the outcome for this patient's extremity. Management of pain associated with surgery will likely require the use of parental controlled substances. The risks and benefits of surgical management have been discussed in detail. The risks of surgery include, but are not limited to, injury to nerves, blood vessels, bleeding, infection, non-healing; loss of range on motion, dysfunction or weakness of the associated joints; blood clots, pneumonia, stroke, heart attack, and . - Attending Attestation Attending Attestation: A mid level provider in my office, nurse practitioner or PA, may see this patient on a follow up basis and continue to implement the plan including: starting or adjusting medications, injections of muscle, tendons, bursa or joints, cast application, orthotic or brace application, physical therapy, further radiographic studies including X-ray, MRI, CT, ultrasound or bone scan , vascular studies, neurological studies, or other specialist consultations, and proceeding with surgical management as appropriate.
[2018-04-23] MEDS ORDERED: HYDROmorphone PF Inj 2 MG/ML Vial ONE (07:24)
[2018-04-23] MEDS ORDERED: Sugammadex Inj 200 MG/2 ML Vial IV.PUSH ONE (07:24)
[2018-04-23] MEDS ORDERED: Chlorhexidine Gluconate 2% 1 Pack (2 Cloths) TOPICAL ONE (08:00)
[2018-04-23] MEDS ORDERED: Phenylephrine/NS 1000 MCG/10ML Syringe IV.PUSH ONE (08:25)
[2018-04-23] MEDS ORDERED: Lidocaine PF 1% Inj 5 ML Syringe OTHER ONE (08:25)
[2018-04-23] MEDS: Vancomycin Inj 1,500 MG in Sodium Chlor 0.9% Inj 500 ML IV.SIG SCH ×2 (08:40→20:38)
[2018-04-23 08:45] LABS: Baso % (Auto) 0.1 % (0.0-2.0); Hematocrit 38.7 % (39.0-51.0); Lymph # (Auto) 1.3 th/mm3 (1.0-4.8); Lymph % (Auto) 7.9 % (9.0-44.0); Mean Corpuscular HGB Conc 33.7 % (32.0-36.0); Mean Corpuscular Hemoglobin 31.1 pg (27.0-34.0); Mean Corpuscular Volume 92.2 fL (80.0-100.0); Mean Platelet Volume 8.7 fL (7.0-11.0); Mono % (Auto) 12.6 % (0.0-8.0); Neut # (Auto) 12.6 th/mm3 (1.8-7.7); Neut % (Auto) 79.4 % (16.0-70.0); Platelet Count 185 th/mm3 (150-450); Red Blood Count 4.19 mil/mm3 (4.50-5.90)
[2018-04-23 09:06] LABS: Calcium 7.9 mg/dL (8.5-10.1); Carbon Dioxide 27.1 meq/L (21.0-32.0)
--- NOTE | 2018-04-23 09:27 | P.OP ---
Preoperative Diagnosis: Thigh necrotizing fasciitis Postoperative Diagnosis: Same Date of procedure: 04/23/18 Procedure: Left thigh incision and debridement of necrotizing fasciitis with 10 cm incision and 40 cm x 40 cm square surface of debridement of necrotic fat Anesthesia: NATHANIEL Surgeon: Cristhian Chaparro MD Sort Line: SHE Ramires The surgical procedure was assisted by my Advanced Registered Nurse Practitioner. My SENIOR HADOOP DEVELOPER presence was necessary throughout this case for the manipulation and positioning of the surgical extremity. My SENIOR HADOOP DEVELOPER was assisting me throughout the duration of this procedure. The skill set of an Advance Registered Nurse Practitioner was medically necessary to complete this procedure. During the surgical case, the light technician was working at the back table and the Advance Registered Nurse Practitioner was directly assisting me. Estimated blood loss (mL): 150 Operation and Findings: The patient was brought back to the operative theater. General anesthesia was administered. The patient was on standing antibiotics. The left lower extremity was prepped and draped in usual sterile fashion. We made incision first centered over the area where the suspected spider bite had occurred which was in the center of the indurated and most red region by the distal medial thigh. As soon as we incised through this we found some purulent fluid. We ended up extending the incision for a total of approximately 10 cm. As we did this we found further purulent fluid. The purulent fluid followed the lines of the deep subcutaneous tissue along the border of the fascia. We found that there was significant fat necrosis and infection within this fatty layer. We took 4 swabs and 1 tissue culture. I probed with my fingers through the subcutaneous area and found multiple areas of loculations within the subcutaneous fat. The subcutaneous fat was very thickened compared to normal fat. It was also very edematous with what looked like purulent fluid within the fat. We debrided 40 cm x 40 cm of the subcutaneous fat both by digital debridement, sharp debridement, and use of abrading devices such as laparotomy pads and curettes. We did not find that the infection went deep to the fascia. After we finished debridement we irrigated the wound very thoroughly with saline and then applied a VAC device. Postoperative plan is for infectious disease consultation. This patient will likely require staged, planned repeat debridement with possible wound closure primarily versus secondarily.
[2018-04-23] MEDS ORDERED: Aluminum/Magnesium/Simethacone Susp 30 ML UDC PO PRN (09:32)
[2018-04-23] MEDS ORDERED: Bisacodyl 10 MG Supp RECTAL PRN (09:32)
[2018-04-23] MEDS ORDERED: Post-op Orders (for Pharmacy) OTHER STA (09:32)
[2018-04-23] MEDS ORDERED: fentaNYL Citrate Inj 100 MCG/2 ML Ampul ONE (09:45)
[2018-04-23] MEDS ORDERED: *morphine SULFATE 10 MG/ML PERIprocedure ONLY ONE (09:55)
[2018-04-23] MEDS: Baclofen 10 MG Tablet PO SCH (11:35)
[2018-04-23] MEDS: clonazePAM 1 MG Tablet PO SCH ×2 (11:36→20:37)
--- NOTE | 2018-04-23 13:32 | P.CONID ---
History of Present Illness Service: Infectious disease Consult date: 04/23/18 Requesting Physician: Cristhian Chaparro Reason for Consult: Evaluate patient with necrotizing fasciitis Primary Care Provider: Reggie Escalante DO Chief Complaint: Left thigh discoloration, swelling, and pain History of Present Illness: Patient seen and examined. Records reviewed. Patient is a 62-year-old male, presented to the hospital for further evaluation of progressive swelling redness and discoloration on his left thigh. Patient noted initially what looks like a puncture wound on his medial left thigh. He went to his primary care doctor, and was given a prescription for Bactrim. Patient stated that there was no redness. It has a brownish color to it. Over the next day, he developed increasing redness, swelling, and there was an area that looks purplish in color. He was also getting painful. He was also having fever and chills, with temperature documented to around 102. He has not had any sore throat or any respiratory complaint. No nausea or vomiting or any diarrhea. He denies any urinary complaints. He does not remember having any insect bite, or any trauma to his left lower extremity. Patient was seen by orthopedic, and there was some concern about progressive infection, and he went to surgery today. He apparently had findings of necrotizing fasciitis, and there was significant purulence seen. He has a wound VAC in place. His white count is elevated. He has been febrile. He is currently on Zosyn and vancomycin. Infectious disease consultation has been requested to evaluate the patient. Review of Systems Constitutional: Reports chills, Reports fatigue, Reports fever(s), Reports malaise Eyes: Denies discharge, Denies dry eyes Ears, Nose, Mouth, and Throat: Denies difficulty swallowing, Denies ear discharge, Denies ear pain, Denies mouth pain, Denies nasal discharge, Denies sore throat Cardiovascular: Denies chest pain, Denies shortness of breath Respiratory: Denies chest congestion, Denies cough, Denies shortness of breath Gastrointestinal: Denies abdominal pain, Denies loose stools, Denies nausea, Denies pain with swallowing, Denies vomiting Genitourinary: Denies difficulty urinating, Denies painful urination, Denies urinary frequency Musculoskeletal: Reports joint pain, Reports joint swelling Skin/Breast: Reports rash, Reports skin pain Neurologic: Denies dizziness PMFSH - History History Provided By: Patient - Medical History Medical History: Medical History (Last Reviewed 04/23/18 @ 13:31 by Brianne Jaramillo MD) Arthritis Hypertension - Surgical History Surgical History: Surgical History (Last Reviewed 04/23/18 @ 13:31 by Brianne Jaramillo MD) History of back surgery History of neck surgery - Family History Family History: Family History (Last Reviewed 04/23/18 @ 13:31 by Brianne Jaramillo MD) Other Family history of cancer - Tobacco History Second Hand Smoke Exposure: No Smoking Status: Never smoker - Alcohol History How Often Do You Have a Drink Containing Alcohol: Never - Substance Use History Substance History: No History of Abuse - Travel History Recent Travel in the [place] Within the Last 8 Weeks: No Recent Travel Out of the Country Within the Last 8 Weeks: No - Immunization History Tetanus Immunization: Unsure Medications and Allergies Active Medications: Active Medications Acetaminophen (Tylenol) 650 mg PO Q4H PRN PRN Reason: fever Last Admin: 04/23/18 06:46 Dose: 650 mg Hydrocodone Bitart/Acetaminophen ([place] 10/325) 1 tab PO Q6H PRN PRN Reason: pain > 4 Last Admin: 04/23/18 02:19 Dose: 1 tab Al Hydrox/Mg Hydrox/Simethicone (Mag-Al Plus Susp Liq) 30 ml PO Q6H PRN PRN Reason: INDIGESTION Al Hydroxide/Mg Hydroxide (Milk Of Magnesia Liq) 30 ml PO BID PRN PRN Reason: Mild Constipation Baclofen (Lioresal) 10 mg PO DAILY [facility] Last Admin: 04/23/18 11:35 Dose: 10 mg Bisacodyl (Dulcolax Supp) 10 mg RECTAL DAILY PRN PRN Reason: SEVERE CONSITIPATION Clonazepam (Klonopin) 1 mg PO BID [facility] Last Admin: 04/23/18 11:36 Dose: 1 mg Diphenhydramine HCl (Benadryl) 25 mg PO Q6H PRN PRN Reason: ITCHING Sodium Chloride (Ns Inj) 1,000 mls @ 125 mls/hr IV.CONT .Q8H [facility] Last Admin: 04/23/18 11:37 Dose: 125 mls/hr Piperacillin/Tazobactam/Dextrose (Zosyn 3.375 Gm Premix) 50 mls @ 100 mls/hr IV.SIG Q6H [facility] Last Admin: 04/23/18 11:34 Dose: 100 mls/hr Vancomycin HCl 1,500 mg/ (Sodium Chloride) 515 mls @ 250 mls/hr IV.SIG Q12H [facility] Last Admin: 04/23/18 08:40 Dose: 500 mls/hr Lactated Ringer's (Lr 1000 Ml Inj) 1,000 mls @ 30 mls/hr IV.CONT .Q24H [facility] Stop: 04/24/18 07:59 Last Admin: 04/23/18 10:10 Dose: 30 mls/hr Lactated Ringer's (Lr 1000 Ml Inj) 1,000 mls @ 80 mls/hr IV.CONT .[id number] [facility] Last Admin: 04/23/18 11:36 Dose: 80 mls/hr Lactulose (Lactulose Liq) 30 ml PO DAILY PRN PRN Reason: SEVERE CONSITIPATION Losartan Potassium (Cozaar) 25 mg PO DAILY [facility] Last Admin: 04/23/18 11:35 Dose: 25 mg Miscellaneous Information ([facility] Ordered Lab Info) 1 each OTHER ONCE ONE Stop: 04/24/18 09:46 Miscellaneous Information ([facility]) 0 each OTHER UNSCH PRN PRN Reason: SEE LABEL COMMENTS Stop: 04/24/18 09:39 Morphine Sulfate (Oramorph Sr) 15 mg PO Q8H [facility] Last Admin: 04/23/18 06:46 Dose: 15 mg Morphine Sulfate (Morphine Inj) 2 mg IV.PUSH Q3H PRN PRN Reason: BREAKTHROUGH PAIN Multivitamins/Minerals (Theragran-M) 1 tab PO BID [facility] Stop: 06/22/18 20:59 Ondansetron HCl (Zofran Inj) 4 mg IV.PUSH Q8H PRN PRN Reason: nausea Ondansetron HCl (Zofran Inj) 4 mg IV.PUSH Q6H PRN PRN Reason: NAUSEA OR VOMITING Pharmacy Profile Note (Vancomycin Consult Pharmacy) 1 each OTHER UNSCH PRN PRN Reason: Pharmacy to dose Senna/Docusate Sodium (Enedina-Colace) 1 tab PO BID [facility] Sennosides (Senokot) 17.2 mg PO BID PRN PRN Reason: Moderate Constipation Sodium Chloride (Ns Flush) 2 ml IV.FLUSH BID [facility] Sodium Chloride (Ns Flush) 2 ml IV.FLUSH PRN PRN PRN Reason: FLUSH AFTER USING IV ACCESS Tamsulosin HCl (Flomax) 0.4 mg PO DAILY [facility] Last Admin: 04/23/18 11:35 Dose: 0.4 mg Zolpidem Tartrate (Ambien) 10 mg PO HS PRN PRN Reason: INSOMNIA Last Admin: 04/22/18 23:57 Dose: 10 mg Zolpidem Tartrate (Ambien) 5 mg PO HS PRN PRN Reason: INSOMNIA Allergies Allergy/AdvReac Type Severity Reaction Status Date / Time No Known Allergies Allergy Verified 04/22/18 15:52 Home Medications Medication Instructions Recorded Confirmed Type baclofen 10 mg PO DAILY 04/22/18 04/22/18 History celecoxib 200 mg PO BID 04/22/18 04/22/18 History clonazepam 1 mg PO BID 04/22/18 04/22/18 History hydrocodone-acetaminophen 1 tab PO Q6H 04/22/18 04/22/18 History losartan 25 mg PO DAILY 04/22/18 04/22/18 History morphine [MS Contin] 15 mg PO Q8H 04/22/18 04/22/18 History pregabalin [Lyrica] 100 mg PO BID 04/22/18 04/22/18 History sulfamethoxazole-trimethoprim 1 tab PO BID 04/22/18 04/22/18 History [Bactrim DS] tamsulosin 0.4 mg PO DAILY 04/22/18 04/22/18 History zolpidem 10 mg PO HS 04/22/18 04/22/18 History Exam Vital signs: Vital Signs 04/22/18 15:55 04/22/18 16:35 04/22/18 17:01 Temperature 102.9 F H Pulse Rate 114 H 110 H 101 H Respiratory Rate 18 16 Blood Pressure 172/86 H 152/73 H Pulse Oximetry 96 96 04/22/18 17:02 04/22/18 19:10 04/22/18 21:00 Temperature 100.9 F H Pulse Rate 68 84 Respiratory Rate 16 16 18 Blood Pressure 160/83 H 142/67 H Pulse Oximetry 94 L 04/23/18 00:00 04/23/18 04:00 04/23/18 08:00 Temperature 101.1 F H 99.1 F 98.5 F Pulse Rate 83 82 79 Respiratory Rate 19 19 16 Blood Pressure 129/60 107/51 L 111/58 L Pulse Oximetry 94 L 94 L 96 04/23/18 09:40 04/23/18 09:45 04/23/18 10:00 Temperature 98.1 F Pulse Rate 88 88 72 Respiratory Rate 16 16 16 Blood Pressure 104/59 L 104/54 L 92/50 L Pulse Oximetry 95 95 95 04/23/18 10:15 Temperature Pulse Rate 72 Respiratory Rate 16 Blood Pressure 96/55 L Pulse Oximetry 96 Intake & Output 04/22/18 04/23/18 04/23/18 18:59 06:59 18:59 Intake Total 2049 2865 / 2865 300 / 300 Output Total 50 / 50 Balance 2049 2865 / 2865 250 / 250 Weight 114.6 kg 116.4 kg Intake: IV 2049 2865 / 2865 NS Inj 1,000 ML @ 125 mls/hr IV 1999 .CONT .Q8H [facility] Rx#:[id number] Zosyn 3.375 GM Premix 50 ML @ 50 / 50 100 / 100 100 mls/hr IV.SIG Q6H [facility] Rx#: [id number] NS Inj 1,000 ML @ Wide Open IV. 1999 [facility] Rx#:[id number] Vancomycin Inj 1,000 MG In NS 250 / 250 Inj 250 ML @ 250 mls/hr IV.SIG ONCE [facility] Rx#:[id number] Vancomycin Inj 1,500 MG In NS 515 / 515 Inj 500 ML @ 250 mls/hr IV.SIG Q12H [facility] Rx#:[id number] Oral 0 / 0 Anesthesia Amount 300 / 300 Output: Estimated Blood Loss 50 / 50 Other: Mode Setting Left Thigh Continuous # Voids 1 Narrative: Physical Examination GENERAL: Patient is a well-nourished, well-developed male, awake and alert, not in respiratory distress. SKIN: Warm and dry. No generalized rash, no ecchymoses and no evidence of embolic lesions. HEAD: Atraumatic. Normocephalic. No temporal wasting, or tenderness. EYES: [place] conjunctiva. No petechia or hemorrhage. Pupils equal, round and reactive to light. Extraocular movements full and intact. No scleral icterus. No injection or drainage. EARS, NOSE AND THROAT: Nose without bleeding or purulent nasal discharge. No sinus tenderness. Mucous membranes pink and moist. No oral lesions noted. No exudate. No oral thrush. NECK: Trachea midline. Supple and not tender, no meningeal signs CARDIOVASCULAR: Regular rate and rhythm. No murmurs, rubs or gallops heard RESPIRATORY: Clear to auscultation. Breath sounds equal bilaterally. No rales , wheezing or rhonchi ABDOMEN: Soft, non-tender, nondistended. Bowel sounds present and normoactive. No guarding. No rebound. No organomegaly. EXTREMITIES: No clubbing, cyanosis. LLE is swollen, in his L knee and L thigh, there is marked edema, with indurated skin and has ecchymoses laterak L knee and distal medial thigh. There is wound vac in place. No calf tenderness. Well perfused and warm. NEUROLOGICAL: Awake and alert. Cranial nerves grossly intact. Motor grossly within normal limits. PSYCHIATRIC: Normal affect, calm and cooperative. LINE: No evidence of infection Results - Labs CBC & Chem 7: 04/23/18 06:27 04/23/18 06:27 Labs: Laboratory Results - last 24 hr 04/22/18 04/22/18 04/22/18 16:10 16:10 16:10 CBC w Diff Auto diff final WBC 16.9 H RBC 5.08 Hgb 15.4 Hct 46.7 MCV 91.9 MCH 30.3 MCHC 33.0 RDW 12.1 Plt Count 223 MPV 8.6 Neut % (Auto) 85.6 H Lymph % (Auto) 4.0 L [place] % (Auto) 7.2 Eos % (Auto) 0.0 Baso % (Auto) 3.2 H Neut # (Auto) 14.5 H Lymph # (Auto) 0.7 L [place] # (Auto) 1.2 H Eos # (Auto) 0.0 Baso # (Auto) 0.5 H WBC Differential . Differential Comment . ESR PT 12.5 H INR 1.2 APTT 29.4 Sodium 135 L Potassium 3.9 Chloride 100 Carbon Dioxide 25.9 Anion Gap 9 BUN 11 Creatinine 1.30 Estimated GFR 56 L Random Glucose 132 H Lactic Acid Calcium 8.7 Magnesium 1.9 Total Bilirubin 0.8 AST 23 ALT 100 H Alkaline Phosphatase 114 C-Reactive Protein Total Protein 7.4 Albumin 3.4 04/22/18 04/22/18 04/22/18 16:10 16:10 16:10 CBC w Diff WBC RBC Hgb Hct MCV MCH MCHC RDW Plt Count MPV Neut % (Auto) Lymph % (Auto) [place] % (Auto) Eos % (Auto) Baso % (Auto) Neut # (Auto) Lymph # (Auto) [place] # (Auto) Eos # (Auto) Baso # (Auto) WBC Differential Differential Comment ESR 11 PT INR APTT Sodium Potassium Chloride Carbon Dioxide Anion Gap BUN Creatinine Estimated GFR Random Glucose Lactic Acid 2.1 H Calcium Magnesium Total Bilirubin AST ALT Alkaline Phosphatase C-Reactive Protein 16.50 H Total Protein Albumin 04/22/18 04/23/18 04/23/18 18:50 06:27 06:27 CBC w Diff WBC 16.0 H RBC 4.19 L Hgb 13.0 D Hct 38.7 L MCV 92.2 MCH 31.1 MCHC 33.7 RDW 13.0 Plt Count 185 MPV 8.7 Neut % (Auto) 79.4 H Lymph % (Auto) 7.9 L [place] % (Auto) 12.6 H Eos % (Auto) 0.0 Baso % (Auto) 0.1 Neut # (Auto) 12.6 H Lymph # (Auto) 1.3 [place] # (Auto) 2.0 H Eos # (Auto) 0.0 Baso # (Auto) 0.0 WBC Differential . Differential Comment Auto diff final ESR PT INR APTT Sodium 139 Potassium 4.0 Chloride 105 Carbon Dioxide 27.1 Anion Gap 7 BUN 13 Creatinine 1.10 Estimated GFR 68 L Random Glucose 90 Lactic Acid 1.5 Calcium 7.9 L D Magnesium Total Bilirubin AST ALT Alkaline Phosphatase C-Reactive Protein Total Protein Albumin - Imaging Impressions Femur MRI 04/22/18 00:00 CONCLUSION: 1. Extensive cellulitis of the right thigh especially medially without evidence for osteomyelitis or discrete abscess. Femur X-Ray 04/22/18 16:21 CONCLUSION: Negative examination Femur CT 04/22/18 16:57 CONCLUSION: 1. Impressive subcutaneous edema across the upper leg. The soft tissue edema does extend into the peripheral fibers of the vastus medialis muscle and the sartorius muscle without obvious drainable fluid collection or mass effect on the musculature. Assessment and Plan - Plan Impression Necrotizing fasciitis L thigh Sepsis due to above Fevers leukocytosis Recommendation Continue vanco Continue Zosyn Short course of Clindamycin Follow C/S and adjust Abx Monitor progress I will follow along with you and determine course of Rx Thank you for this consultation Explained plan to the patient
--- NOTE | 2018-04-23 15:33 | P.PN ---
Subjective Interval history: Follow up Necrotizing Fasciitis left thigh/sepsis 04/23/18-patient seen and examined; s/p Left thigh incision and debridement of necrotizing fasciitis with 10 cm incision and 40 cm x 40 cm square surface of debridement of necrotic fat Physical Exam Vital signs: Vital Signs 04/22/18 15:55 04/22/18 16:35 04/22/18 17:01 Temperature 102.9 F H Pulse Rate 114 H 110 H 101 H Respiratory Rate 18 16 Blood Pressure 172/86 H 152/73 H Pulse Oximetry 96 96 04/22/18 17:02 04/22/18 19:10 04/22/18 21:00 Temperature 100.9 F H Pulse Rate 68 84 Respiratory Rate 16 16 18 Blood Pressure 160/83 H 142/67 H Pulse Oximetry 94 L 04/23/18 00:00 04/23/18 04:00 04/23/18 08:00 Temperature 101.1 F H 99.1 F 98.5 F Pulse Rate 83 82 79 Respiratory Rate 19 19 16 Blood Pressure 129/60 107/51 L 111/58 L Pulse Oximetry 94 L 94 L 96 04/23/18 09:40 04/23/18 09:45 04/23/18 10:00 Temperature 98.1 F Pulse Rate 88 88 72 Respiratory Rate 16 16 16 Blood Pressure 104/59 L 104/54 L 92/50 L Pulse Oximetry 95 95 95 04/23/18 10:15 04/23/18 12:00 Temperature 97.4 F L Pulse Rate 72 71 Respiratory Rate 16 16 Blood Pressure 96/55 L 101/55 L Pulse Oximetry 96 97 Intake & Output 04/22/18 04/23/18 04/23/18 18:59 06:59 18:59 Intake Total 2049 2865 / 2865 300 / 300 Output Total 50 / 50 Balance 2049 2865 / 2865 250 / 250 Weight 114.6 kg 116.4 kg Intake: IV 2049 2865 / 2865 NS Inj 1,000 ML @ 125 mls/hr IV 1999 .CONT .Q8H [facility] Rx#:[id number] Zosyn 3.375 GM Premix 50 ML @ 50 / 50 100 / 100 100 mls/hr IV.SIG Q6H [facility] Rx#: [id number] NS Inj 1,000 ML @ Wide Open IV. 1999 SIG BOLUS ONE Rx#:[id number] Vancomycin Inj 1,000 MG In NS 250 / 250 Inj 250 ML @ 250 mls/hr IV.SIG ONCE ONE Rx#:[id number] Vancomycin Inj 1,500 MG In NS 515 / 515 Inj 500 ML @ 250 mls/hr IV.SIG Q12H [facility] Rx#:[id number] Oral 0 / 0 Anesthesia Amount 300 / 300 Output: Estimated Blood Loss 50 / 50 Other: Mode Setting Left Thigh Continuous # Voids 1 Narrative: GENERAL: NAD SKIN: Warm and dry. HEAD: Atraumatic. Normocephalic. EYES: Pupils equal and round. No scleral icterus. No injection or drainage. ENT: No nasal bleeding or discharge. Mucous membranes pink and moist. NECK: Trachea midline. No JVD. CARDIOVASCULAR: Regular rate and rhythm. RESPIRATORY: No accessory muscle use. Clear to auscultation. Breath sounds equal bilaterally. GASTROINTESTINAL: Abdomen soft, non-tender, nondistended. Hepatic and splenic margins not palpable. MUSCULOSKELETAL: Extremities without clubbing, cyanosis, or edema. No obvious deformities. dressing over left thigh incision; wound vac in place NEUROLOGICAL: Awake and alert. No obvious cranial nerve deficits. Motor grossly within normal limits. Five out of 5 muscle strength in the arms and legs. Normal speech. PSYCHIATRIC: Appropriate mood and affect; insight and judgment normal. Results - Labs CBC & Chem 7: 04/23/18 06:27 04/23/18 06:27 Laboratory Results - last 24 hr 04/22/18 04/22/18 04/22/18 16:10 16:10 16:10 CBC w Diff Auto diff final WBC 16.9 H RBC 5.08 Hgb 15.4 Hct 46.7 MCV 91.9 MCH 30.3 MCHC 33.0 RDW 12.1 Plt Count 223 MPV 8.6 Neut % (Auto) 85.6 H Lymph % (Auto) 4.0 L [place] % (Auto) 7.2 Eos % (Auto) 0.0 Baso % (Auto) 3.2 H Neut # (Auto) 14.5 H Lymph # (Auto) 0.7 L [place] # (Auto) 1.2 H Eos # (Auto) 0.0 Baso # (Auto) 0.5 H WBC Differential . Differential Comment . ESR PT 12.5 H INR 1.2 APTT 29.4 Sodium 135 L Potassium 3.9 Chloride 100 Carbon Dioxide 25.9 Anion Gap 9 BUN 11 Creatinine 1.30 Estimated GFR 56 L Random Glucose 132 H Lactic Acid Calcium 8.7 Magnesium 1.9 Total Bilirubin 0.8 AST 23 ALT 100 H Alkaline Phosphatase 114 C-Reactive Protein Total Protein 7.4 Albumin 3.4 04/22/18 04/22/18 04/22/18 16:10 16:10 16:10 CBC w Diff WBC RBC Hgb Hct MCV MCH MCHC RDW Plt Count MPV Neut % (Auto) Lymph % (Auto) [place] % (Auto) Eos % (Auto) Baso % (Auto) Neut # (Auto) Lymph # (Auto) [place] # (Auto) Eos # (Auto) Baso # (Auto) WBC Differential Differential Comment ESR 11 PT INR APTT Sodium Potassium Chloride Carbon Dioxide Anion Gap BUN Creatinine Estimated GFR Random Glucose Lactic Acid 2.1 H Calcium Magnesium Total Bilirubin AST ALT Alkaline Phosphatase C-Reactive Protein 16.50 H Total Protein Albumin 04/22/18 04/23/18 04/23/18 18:50 06:27 06:27 CBC w Diff WBC 16.0 H RBC 4.19 L Hgb 13.0 D Hct 38.7 L MCV 92.2 MCH 31.1 MCHC 33.7 RDW 13.0 Plt Count 185 MPV 8.7 Neut % (Auto) 79.4 H Lymph % (Auto) 7.9 L [place] % (Auto) 12.6 H Eos % (Auto) 0.0 Baso % (Auto) 0.1 Neut # (Auto) 12.6 H Lymph # (Auto) 1.3 [place] # (Auto) 2.0 H Eos # (Auto) 0.0 Baso # (Auto) 0.0 WBC Differential . Differential Comment Auto diff final ESR PT INR APTT Sodium 139 Potassium 4.0 Chloride 105 Carbon Dioxide 27.1 Anion Gap 7 BUN 13 Creatinine 1.10 Estimated GFR 68 L Random Glucose 90 Lactic Acid 1.5 Calcium 7.9 L D Magnesium Total Bilirubin AST ALT Alkaline Phosphatase C-Reactive Protein Total Protein Albumin Microbiology 04/23/18 08:50 Wound - Thigh Fungal Smear - Final No fungal elements seen 04/23/18 08:50 Wound - Thigh Fungal Smear - Final No fungal elements seen 04/23/18 08:50 Wound - Thigh Gram Stain - Final 04/23/18 08:50 Wound - Thigh Gram Stain - Final 04/22/18 16:10 Blood - Peripheral Aerobic Blood Culture - Preliminary No growth in 1 day 04/22/18 16:10 Blood - Peripheral Anaerobic Blood Culture - Preliminary No growth in 1 day 04/22/18 16:15 Blood - Peripheral Aerobic Blood Culture - Preliminary No growth in 1 day 04/22/18 16:15 Blood - Peripheral Anaerobic Blood Culture - Preliminary No growth in 1 day - Imaging Impressions Femur MRI 04/22/18 00:00 CONCLUSION: 1. Extensive cellulitis of the right thigh especially medially without evidence for osteomyelitis or discrete abscess. Femur X-Ray 04/22/18 16:21 CONCLUSION: Negative examination Femur CT 04/22/18 16:57 CONCLUSION: 1. Impressive subcutaneous edema across the upper leg. The soft tissue edema does extend into the peripheral fibers of the vastus medialis muscle and the sartorius muscle without obvious drainable fluid collection or mass effect on the musculature. - Procedures s/p Left thigh incision and debridement of necrotizing fasciitis with 10 cm incision and 40 cm x 40 cm square surface of debridement of necrotic fat Assessment and Plan - Plan 62 years old man with Necrotizing Fasciitis left thigh Sepsis s/p Left thigh incision and debridement of necrotizing fasciitis with 10 cm incision and 40 cm x 40 cm square surface of debridement of necrotic fat Management per Orthopedic surgery Wound Vac management per protocol Abx per ID;currently on Vanc, Zosyn and short course of clindamycin pending culture reports PT to treat and eval Hypertension -Continue home losartan -Monitor blood pressure readings -Adjust treatments as indicated DVT prophylaxis -SCDs on unaffected extremity ("nonoperative" leg)
[2018-04-23] MEDS: Clindamycin 600 mg/NS Premix 600 MG/50 ML PIGGYBACK IV.SIG SCH ×2 (16:19→22:49)
[2018-04-23] MEDS: Multivitamin/Minerals Therapeutic Tablet PO SCH (20:36)
[2018-04-23] MEDS: Zolpidem Tartrate 5 MG Tablet PO PRN (20:36)
[2018-04-23] MEDS: Senna/Docusate Sodium 8.6/50 MG Tablet PO SCH (20:37)
[2018-04-24] MEDS: Piperacil/Tazo 3.375 GM Premix 50 ML IV.SIG SCH ×4 (04:42→23:15)
[2018-04-24] MEDS: Clindamycin 600 mg/NS Premix 600 MG/50 ML PIGGYBACK IV.SIG SCH ×2 (07:14→14:32)
[2018-04-24] MEDS: Morphine Sulfate 15 MG SR Tablet PO SCH ×3 (07:15→23:15)
[2018-04-24 09:14] LABS: Baso % (Auto) 0.2 % (0.0-2.0); Eos # (Auto) 0.1 th/mm3 (0.0-0.4); Eos % (Auto) 0.5 % (0.0-4.0); Hematocrit 37.5 % (39.0-51.0); Hemoglobin 12.8 gm/dL (13.0-17.0); Lymph % (Auto) 8.2 % (9.0-44.0); Mean Corpuscular HGB Conc 34.2 % (32.0-36.0); Mean Corpuscular Hemoglobin 31.1 pg (27.0-34.0); Mean Corpuscular Volume 90.9 fL (80.0-100.0); Mean Platelet Volume 8.5 fL (7.0-11.0); Mono # (Auto) 0.9 th/mm3 (0.0-0.9); Mono % (Auto) 7.4 % (0.0-8.0); Neut # (Auto) 10.6 th/mm3 (1.8-7.7); Neut % (Auto) 83.7 % (16.0-70.0); Platelet Count 214 th/mm3 (150-450); Red Blood Count 4.13 mil/mm3 (4.50-5.90); White Blood Count 12.6 th/mm3 (4.0-11.0)
--- NOTE | 2018-04-24 09:15 | P.PNOP ---
Subjective Interval history: Moderate left thigh pain. Occasional spasms into knee. No new pain below the knee to the foot. Questions about his procedure and condition. Physical Exam Vital signs: Vital Signs 04/23/18 09:40 04/23/18 09:45 04/23/18 10:00 Temperature 98.1 F Pulse Rate 88 88 72 Respiratory Rate 16 16 16 Blood Pressure 104/59 L 104/54 L 92/50 L Pulse Oximetry 95 95 95 04/23/18 10:15 04/23/18 12:00 04/23/18 16:00 Temperature 97.4 F L 97.3 F L Pulse Rate 72 71 73 Respiratory Rate 16 16 16 Blood Pressure 96/55 L 101/55 L 116/58 L Pulse Oximetry 96 97 97 04/23/18 20:00 04/24/18 00:00 Temperature 97.9 F 98.5 F Pulse Rate 94 H 103 H Respiratory Rate 17 17 Blood Pressure 137/66 153/78 H Pulse Oximetry 97 95 Intake & Output 04/23/18 04/24/18 04/24/18 18:59 06:59 18:59 Intake Total 1825 / 1825 3145 / 3145 Output Total 50 / 50 1450 / 1450 Balance 1775 / 1775 1695 / 1695 Weight 116.4 kg Intake: IV 1165 / 1165 2665 / 2665 LR 1000 mL Inj 1,000 ML @ 30 500 / 500 1000 / 1000 mls/hr IV.CONT .Q24H [facility] Rx#: [id number] NS Inj 1,000 ML @ 125 mls/hr IV 1000 / 1000 .CONT .Q8H [facility] Rx#:[id number] Cleocin 600 mg/NS Premix 600 mg 50 / 50 50 / 50 In 50 ml @ 100 mls/hr IV.SIG Q8H [facility] Rx#:[id number] Zosyn 3.375 GM Premix 50 ML @ 100 / 100 100 / 100 100 mls/hr IV.SIG Q6H [facility] Rx#: [id number] Vancomycin Inj 1,500 MG In NS 515 / 515 515 / 515 Inj 500 ML @ 250 mls/hr IV.SIG Q12H [facility] Rx#:[id number] Oral 360 / 360 480 / 480 Anesthesia Amount 300 / 300 Output: Urine 1400 / 1400 Estimated Blood Loss 50 / 50 Wound Vac Amount 50 / 50 Left Thigh 50 / 50 Other: Mode Setting Left Thigh Continuous Continuous Continuous # Voids 2 # Bowel Movements 1 Narrative: Laying in bed NAD Left LE Thigh dressing intact, VAC in place, no new erythema, swelling decreased, no tenderness left thigh, +motor at distal intact, +sens lower leg, +nvi, neg homans Patient seen and evaluated by Dr. Enedelia Abraham - Constitutional no acute distress Results - Labs CBC & Chem 7: 04/24/18 07:02 04/23/18 06:27 Microbiology 04/23/18 08:50 Wound - Thigh Fungal Smear - Final No fungal elements seen 04/23/18 08:50 Wound - Thigh Gram Stain - Final 04/23/18 08:50 Wound - Thigh Fungal Smear - Final No fungal elements seen 04/23/18 08:50 Tissue - Thigh Fungal Smear - Final No fungal elements seen 04/23/18 08:50 Wound - Thigh Gram Stain - Final 04/23/18 08:50 Tissue - Thigh Gram Stain - Final 04/23/18 08:50 Wound - Thigh Fungal Smear - Final No fungal elements seen 04/23/18 08:50 Wound - Thigh Fungal Smear - Final No fungal elements seen 04/23/18 08:50 Wound - Thigh Gram Stain - Final 04/23/18 08:50 Wound - Thigh Gram Stain - Final 04/22/18 16:10 Blood - Peripheral Aerobic Blood Culture - Preliminary No growth in 1 day 04/22/18 16:10 Blood - Peripheral Anaerobic Blood Culture - Preliminary No growth in 1 day 04/22/18 16:15 Blood - Peripheral Aerobic Blood Culture - Preliminary No growth in 1 day 04/22/18 16:15 Blood - Peripheral Anaerobic Blood Culture - Preliminary No growth in 1 day - Procedures s/p Left thigh incision and debridement of necrotizing fasciitis with 10 cm incision and 40 cm x 40 cm square surface of debridement of necrotic fat Assessment and Plan - Ortho Post Op Day # 1 - Assessment and Plan 62-year-old man with likely spider bite and possible necrotizing fasciitis with significant cellulitis. pod#1 s/p Left thigh I&D, 10cm incision with [id number] area of exploration Ortho stable. Answered multiple questions from patient and acquaintances in room. Explained at length his medical condition and management. No expanding or evolving erythema seen on exam. Pain moderate controlled. Antibiotic treatment per ID - Vanco, Zosyn and short course of [place]. Cultures pending. Dressings as written. Continue wound VAC. Limited activity left leg. Dr. Chaparro to follow.
--- NOTE | 2018-04-24 09:17 | P.PN ---
Subjective Interval history: Follow up Necrotizing Fasciitis left thigh/sepsis 04/24: Status post Left thigh incision and debridement of necrotizing fasciitis with 10 cm incision and 40 cm x 40 cm square surface of debridement of necrotic fat. Orthopedic surgery following, POD#1, stable by specialist. seen in his bedroom no nausea, vomit or diarrhea, has erythema, vacuum in place. Physical Exam Vital signs: Vital Signs 04/23/18 09:40 04/23/18 09:45 04/23/18 10:00 Temperature 98.1 F Pulse Rate 88 88 72 Respiratory Rate 16 16 16 Blood Pressure 104/59 L 104/54 L 92/50 L Pulse Oximetry 95 95 95 04/23/18 10:15 04/23/18 12:00 04/23/18 16:00 Temperature 97.4 F L 97.3 F L Pulse Rate 72 71 73 Respiratory Rate 16 16 16 Blood Pressure 96/55 L 101/55 L 116/58 L Pulse Oximetry 96 97 97 04/23/18 20:00 04/24/18 00:00 Temperature 97.9 F 98.5 F Pulse Rate 94 H 103 H Respiratory Rate 17 17 Blood Pressure 137/66 153/78 H Pulse Oximetry 97 95 Intake & Output 04/23/18 04/24/18 04/24/18 18:59 06:59 18:59 Intake Total 1825 / 1825 3145 / 3145 Output Total 50 / 50 1450 / 1450 Balance 1775 / 1775 1695 / 1695 Weight 116.4 kg Intake: IV 1165 / 1165 2665 / 2665 LR 1000 mL Inj 1,000 ML @ 30 500 / 500 1000 / 1000 mls/hr IV.CONT .Q24H [facility] Rx#: [id number] NS Inj 1,000 ML @ 125 mls/hr IV 1000 / 1000 .CONT .Q8H [facility] Rx#:[id number] Cleocin 600 mg/NS Premix 600 mg 50 / 50 50 / 50 In 50 ml @ 100 mls/hr IV.SIG Q8H [facility] Rx#:[id number] Zosyn 3.375 GM Premix 50 ML @ 100 / 100 100 / 100 100 mls/hr IV.SIG Q6H [facility] Rx#: [id number] Vancomycin Inj 1,500 MG In NS 515 / 515 515 / 515 Inj 500 ML @ 250 mls/hr IV.SIG Q12H [facility] Rx#:[id number] Oral 360 / 360 480 / 480 Anesthesia Amount 300 / 300 Output: Urine 1400 / 1400 Estimated Blood Loss 50 / 50 Wound Vac Amount 50 / 50 Left Thigh 50 / 50 Other: Mode Setting Left Thigh Continuous Continuous Continuous # Voids 2 # Bowel Movements 1 Narrative: GENERAL: NAD SKIN: Warm and dry. HEAD: Atraumatic. Normocephalic. EYES: Pupils equal and round. No scleral icterus. No injection or drainage. ENT: No nasal bleeding or discharge. Mucous membranes pink and moist. NECK: Trachea midline. No JVD. CARDIOVASCULAR: Regular rate and rhythm. RESPIRATORY: No accessory muscle use. Clear to auscultation. Breath sounds equal bilaterally. GASTROINTESTINAL: Abdomen soft, non-tender, nondistended. Hepatic and splenic margins not palpable. MUSCULOSKELETAL: Extremities no clubbing, cyanosis, has edema on left knee area , erythema and vacuum in place. NEUROLOGICAL: Awake and alert. PSYCHIATRIC: Appropriate mood and affect; insight and judgment normal. Results - Labs CBC & Chem 7: 04/24/18 07:02 04/24/18 07:02 Laboratory Results - last 24 hr 04/24/18 07:02 WBC 12.6 H RBC 4.13 L Hgb 12.8 L Hct 37.5 L MCV 90.9 MCH 31.1 MCHC 34.2 RDW 13.0 Plt Count 214 MPV 8.5 Neut % (Auto) 83.7 H Lymph % (Auto) 8.2 L [place] % (Auto) 7.4 Eos % (Auto) 0.5 Baso % (Auto) 0.2 Neut # (Auto) 10.6 H Lymph # (Auto) 1.0 [place] # (Auto) 0.9 Eos # (Auto) 0.1 Baso # (Auto) 0.0 WBC Differential . Differential Comment Auto diff final Microbiology 04/23/18 08:50 Wound - Thigh Fungal Smear - Final No fungal elements seen 04/23/18 08:50 Wound - Thigh Gram Stain - Final 04/23/18 08:50 Wound - Thigh Fungal Smear - Final No fungal elements seen 04/23/18 08:50 Tissue - Thigh Fungal Smear - Final No fungal elements seen 04/23/18 08:50 Wound - Thigh Gram Stain - Final 04/23/18 08:50 Tissue - Thigh Gram Stain - Final 04/23/18 08:50 Wound - Thigh Fungal Smear - Final No fungal elements seen 04/23/18 08:50 Wound - Thigh Fungal Smear - Final No fungal elements seen 04/23/18 08:50 Wound - Thigh Gram Stain - Final 04/23/18 08:50 Wound - Thigh Gram Stain - Final 04/22/18 16:10 Blood - Peripheral Aerobic Blood Culture - Preliminary No growth in 1 day 04/22/18 16:10 Blood - Peripheral Anaerobic Blood Culture - Preliminary No growth in 1 day 04/22/18 16:15 Blood - Peripheral Aerobic Blood Culture - Preliminary No growth in 1 day 04/22/18 16:15 Blood - Peripheral Anaerobic Blood Culture - Preliminary No growth in 1 day - Imaging Femur MRI 04/22/18 00:00 CONCLUSION: 1. Extensive cellulitis of the right thigh especially medially without evidence for osteomyelitis or discrete abscess. Femur X-Ray 04/22/18 16:21 CONCLUSION: Negative examination Femur CT 04/22/18 16:57 CONCLUSION: 1. Impressive subcutaneous edema across the upper leg. The soft tissue edema does extend into the peripheral fibers of the vastus medialis muscle and the sartorius muscle without obvious drainable fluid collection or mass effect on the musculature. - Procedures s/p Left thigh incision and debridement of necrotizing fasciitis with 10 cm incision and 40 cm x 40 cm square surface of debridement of necrotic fat Assessment and Plan - Plan 62 years old man with Necrotizing Fasciitis left thigh Sepsis s/p Left thigh incision and debridement of necrotizing fasciitis with 10 cm incision and 40 cm x 40 cm square surface of debridement of necrotic fat Management per Orthopedic surgery Wound Vac management per protocol Abx per ID;currently on Vanc, Zosyn and short course of clindamycin pending culture reports PT to treat and eval Hypertension controlled at this time. -Continue home losartan -Monitor blood pressure readings -Adjust treatments as indicated DVT prophylaxis -SCDs on unaffected extremity ("nonoperative" leg) Code Status: Full Code. Discussed Condition With: patient and nurse Miss Cline Discharge Planning: Once cleared by specialists.
[2018-04-24 09:37] LABS: Albumin 2.6 g/dL (3.4-5.0); Anion Gap 8 meq/L (5-15); Aspartate Aminotransferase 14 U/L (15-37); Blood Urea Nitrogen 10 mg/dL (7-18); Calcium 8.5 mg/dL (8.5-10.1); Carbon Dioxide 26.8 meq/L (21.0-32.0); Chloride 106 meq/L (98-107); Glomerular Filtration Rate 81 mL/min (>89); Glucose,Random 92 mg/dL (74-106); Potassium 3.8 meq/L (3.5-5.1); Sodium 141 meq/L (136-145)
[2018-04-24 09:43] LABS: Alanine Aminotransferase 53 U/L (12-78); Alkaline Phosphatase 79 U/L (45-117); Total Protein 6.3 g/dL (6.4-8.2)
[2018-04-24] MEDS ORDERED: Pharmacy Ordered Lab Info OTHER ONE (09:45)
[2018-04-24] MEDS: clonazePAM 1 MG Tablet PO SCH ×2 (10:30→20:39)
[2018-04-24] MEDS: Multivitamin/Minerals Therapeutic Tablet PO SCH ×2 (10:30→20:39)
[2018-04-24] MEDS: Senna/Docusate Sodium 8.6/50 MG Tablet PO SCH ×2 (10:30→20:39)
[2018-04-24] MEDS: Baclofen 10 MG Tablet PO SCH (10:31)
--- NOTE | 2018-04-24 10:47 | P.PNID ---
Subjective Remarks: Patient is a 62-year-old male, presented to the hospital for further evaluation of progressive swelling redness and discoloration on his left thigh. Patient noted initially what looks like a puncture wound on his medial left thigh. He went to his primary care doctor, and was given a prescription for Bactrim. Patient stated that there was no redness. It has a brownish color to it. Over the next day, he developed increasing redness, swelling, and there was an area that looks purplish in color. He was also getting painful. He was also having fever and chills, with temperature documented to around 102. He has not had any sore throat or any respiratory complaint. No nausea or vomiting or any diarrhea. He denies any urinary complaints. He does not remember having any insect bite, or any trauma to his left lower extremity. Patient was seen by orthopedic, and there was some concern about progressive infection, and he went to surgery today. He apparently had findings of necrotizing fasciitis, and there was significant purulence seen. He has a wound VAC in place. His white count is elevated. He has been febrile. He is currently on Zosyn and vancomycin. Infectious disease consultation has been requested to evaluate the patient. Notes reviewed Temps ok WBC lower Prelim OR C/S MRSA Pain under control Antibiotics: Vancomycin Zosyn Clindamycin Lines: PIV Past Medical History: Hypertension Arthritis Back and neck OR Allergies/Adverse Reactions: Allergies No Known Allergies Allergy (Verified 04/22/18 15:52) Objective Vital Signs 04/23/18 12:00 04/23/18 16:00 04/23/18 20:00 Temperature 97.4 F L 97.3 F L 97.9 F Pulse Rate 71 73 94 H Respiratory Rate 16 16 17 Blood Pressure 101/55 L 116/58 L 137/66 Pulse Oximetry 97 97 97 04/24/18 00:00 Temperature 98.5 F Pulse Rate 103 H Respiratory Rate 17 Blood Pressure 153/78 H Pulse Oximetry 95 Intake & Output 04/23/18 04/24/18 04/24/18 18:59 06:59 18:59 Intake Total 1825 / 1825 3145 / 3145 Output Total 50 / 50 1450 / 1450 Balance 1775 / 1775 1695 / 1695 Weight 116.4 kg Intake: IV 1165 / 1165 2665 / 2665 LR 1000 mL Inj 1,000 ML @ 30 500 / 500 1000 / 1000 mls/hr IV.CONT .Q24H [facility] Rx#: [id number] NS Inj 1,000 ML @ 125 mls/hr IV 1000 / 1000 .CONT .Q8H [facility] Rx#:[id number] Cleocin 600 mg/NS Premix 600 mg 50 / 50 50 / 50 In 50 ml @ 100 mls/hr IV.SIG Q8H [facility] Rx#:[id number] Zosyn 3.375 GM Premix 50 ML @ 100 / 100 100 / 100 100 mls/hr IV.SIG Q6H [facility] Rx#: [id number] Vancomycin Inj 1,500 MG In NS 515 / 515 515 / 515 Inj 500 ML @ 250 mls/hr IV.SIG Q12H [facility] Rx#:[id number] Oral 360 / 360 480 / 480 Anesthesia Amount 300 / 300 Output: Urine 1400 / 1400 Estimated Blood Loss 50 / 50 Wound Vac Amount 50 / 50 Left Thigh 50 / 50 Other: Mode Setting Left Thigh Continuous Continuous Continuous # Voids 2 # Bowel Movements 1 04/23/18 08:50 Wound - Thigh Gram Stain - Final 04/23/18 08:50 Wound - Thigh Wound Culture - Preliminary S. aureus MRSA 04/23/18 08:50 Wound - Thigh Gram Stain - Final 04/23/18 08:50 Wound - Thigh Wound Culture - Preliminary S. aureus MRSA 04/23/18 08:50 Wound - Thigh Gram Stain - Final 04/23/18 08:50 Wound - Thigh Wound Culture - Preliminary S. aureus MRSA 04/23/18 08:50 Wound - Thigh Gram Stain - Final 04/23/18 08:50 Wound - Thigh Wound Culture - Preliminary S. aureus MRSA 04/23/18 08:50 Wound - Thigh Fungal Smear - Final No fungal elements seen 04/23/18 08:50 Wound - Thigh Fungal Culture - Pending 04/23/18 08:50 Tissue - Thigh Gram Stain - Final 04/23/18 08:50 Tissue - Thigh Wound Culture - Preliminary S. aureus MRSA 04/23/18 08:50 Tissue - Thigh Acid Fast Bacilli Smear - Pending 04/23/18 08:50 Tissue - Thigh Mycobacterial Culture - Pending 04/23/18 08:50 Wound - Thigh Fungal Smear - Final No fungal elements seen 04/23/18 08:50 Wound - Thigh Fungal Culture - Pending 04/23/18 08:50 Wound - Thigh Fungal Smear - Final No fungal elements seen 04/23/18 08:50 Wound - Thigh Fungal Culture - Pending 04/23/18 08:50 Tissue - Thigh Fungal Smear - Final No fungal elements seen 04/23/18 08:50 Tissue - Thigh Fungal Culture - Pending 04/23/18 08:50 Wound - Thigh Fungal Smear - Final No fungal elements seen 04/23/18 08:50 Wound - Thigh Fungal Culture - Pending 04/23/18 08:50 Wound - Thigh Acid Fast Bacilli Smear - Pending 04/23/18 08:50 Wound - Thigh Mycobacterial Culture - Pending 04/23/18 08:50 Wound - Thigh Acid Fast Bacilli Smear - Pending 04/23/18 08:50 Wound - Thigh Mycobacterial Culture - Pending 04/23/18 08:50 Wound - Thigh Acid Fast Bacilli Smear - Pending 04/23/18 08:50 Wound - Thigh Mycobacterial Culture - Pending 04/23/18 08:50 Wound - Thigh Acid Fast Bacilli Smear - Pending 04/23/18 08:50 Wound - Thigh Mycobacterial Culture - Pending 04/22/18 16:10 Blood - Peripheral Aerobic Blood Culture - Preliminary No growth in 1 day 04/22/18 16:10 Blood - Peripheral Anaerobic Blood Culture - Preliminary No growth in 1 day 04/22/18 16:15 Blood - Peripheral Aerobic Blood Culture - Preliminary No growth in 1 day 04/22/18 16:15 Blood - Peripheral Anaerobic Blood Culture - Preliminary No growth in 1 day Lab - Hematology Results 04/22/18 04/22/18 04/23/18 16:10 16:10 06:27 CBC w Diff Auto diff final WBC 16.9 H 16.0 H RBC 5.08 4.19 L Hgb 15.4 13.0 D Hct 46.7 38.7 L MCV 91.9 92.2 MCH 30.3 31.1 MCHC 33.0 33.7 RDW 12.1 13.0 Plt Count 223 185 MPV 8.6 8.7 Neut % (Auto) 85.6 H 79.4 H Lymph % (Auto) 4.0 L 7.9 L [place] % (Auto) 7.2 12.6 H Eos % (Auto) 0.0 0.0 Baso % (Auto) 3.2 H 0.1 Neut # (Auto) 14.5 H 12.6 H Lymph # (Auto) 0.7 L 1.3 [place] # (Auto) 1.2 H 2.0 H Eos # (Auto) 0.0 0.0 Baso # (Auto) 0.5 H 0.0 WBC Differential . . Differential Comment . Auto diff final ESR 11 04/24/18 07:02 CBC w Diff WBC 12.6 H RBC 4.13 L Hgb 12.8 L Hct 37.5 L MCV 90.9 MCH 31.1 MCHC 34.2 RDW 13.0 Plt Count 214 MPV 8.5 Neut % (Auto) 83.7 H Lymph % (Auto) 8.2 L [place] % (Auto) 7.4 Eos % (Auto) 0.5 Baso % (Auto) 0.2 Neut # (Auto) 10.6 H Lymph # (Auto) 1.0 [place] # (Auto) 0.9 Eos # (Auto) 0.1 Baso # (Auto) 0.0 WBC Differential . Differential Comment Auto diff final ESR Lab - Chemistry Results 04/22/18 04/22/18 04/22/18 16:10 16:10 16:10 Sodium 135 L Potassium 3.9 Chloride 100 Carbon Dioxide 25.9 Anion Gap 9 BUN 11 Creatinine 1.30 Estimated GFR 56 L Random Glucose 132 H Lactic Acid 2.1 H Calcium 8.7 Magnesium 1.9 Total Bilirubin 0.8 AST 23 ALT 100 H Alkaline Phosphatase 114 C-Reactive Protein 16.50 H Total Protein 7.4 Albumin 3.4 04/22/18 04/23/18 04/24/18 18:50 06:27 07:02 Sodium 139 141 Potassium 4.0 3.8 Chloride 105 106 Carbon Dioxide 27.1 26.8 Anion Gap 7 8 BUN 13 10 Creatinine 1.10 0.94 Estimated GFR 68 L 81 L Random Glucose 90 92 Lactic Acid 1.5 Calcium 7.9 L D 8.5 Magnesium Total Bilirubin 0.7 AST 14 L ALT 53 Alkaline Phosphatase 79 C-Reactive Protein Total Protein 6.3 L D Albumin 2.6 L D Imaging: ITS Impressions Femur MRI 04/22/18 00:00 CONCLUSION: 1. Extensive cellulitis of the right thigh especially medially without evidence for osteomyelitis or discrete abscess. Femur X-Ray 04/22/18 16:21 CONCLUSION: Negative examination Femur CT 04/22/18 16:57 CONCLUSION: 1. Impressive subcutaneous edema across the upper leg. The soft tissue edema does extend into the peripheral fibers of the vastus medialis muscle and the sartorius muscle without obvious drainable fluid collection or mass effect on the musculature. Physical Exam: GENERAL: awake and alert, not in respiratory distress. SKIN: Warm and dry. No generalized rash, no ecchymoses and no evidence of embolic lesions. HEAD: Atraumatic. Normocephalic. No temporal wasting, or tenderness. EYES: [place] conjunctiva. No petechia or hemorrhage. Pupils equal, round and reactive to light. Extraocular movements full and intact. No scleral icterus. No injection or drainage. EARS, NOSE AND THROAT: Nose without bleeding or purulent nasal discharge. No sinus tenderness. Mucous membranes pink and moist. No oral lesions noted. No exudate. No oral thrush. NECK: Trachea midline. Supple and not tender, no meningeal signs CARDIOVASCULAR: Regular rate and rhythm. No murmurs, rubs or gallops heard RESPIRATORY: Clear to auscultation. Breath sounds equal bilaterally. No rales , wheezing or rhonchi ABDOMEN: Soft, non-tender, nondistended. Bowel sounds present and normoactive. No guarding. No rebound. No organomegaly. EXTREMITIES: No clubbing, cyanosis. LLE is swollen, in his L knee and L thigh, there is improving edema, with indurated skin showing some improvement as well. Area of erythema is receding and overall better. There is wound vac in place. No calf tenderness. Well perfused and warm. NEUROLOGICAL: Grossly within normal limits. PSYCHIATRIC: Normal affect, calm and cooperative. LINE: No evidence of infection Assessment and Plan - Plan Impression Necrotizing fasciitis L thigh - prelim C/S MRSA Sepsis due to above Fevers leukocytosis Recommendation Continue vanco Continue Zosyn Short course of Clindamycin Follow C/S and adjust Abx - once C/S finalized, will deescalate his Abx coverage Monitor progress Explained plan to the patient
[2018-04-24] MEDS: Vancomycin Inj 1,500 MG in Sodium Chlor 0.9% Inj 500 ML IV.SIG SCH (11:36)
[2018-04-24] MEDS: Acetaminophen 325 MG Tablet PO PRN (15:34)
[2018-04-24] MEDS: Vancomycin Inj 2,000 MG in Sodium Chlor 0.9% Inj 500 ML IV.SIG SCH (20:39)
[2018-04-24] MEDS: Morphine Inj 4 MG/ML Vial IV.PUSH PRN (20:39)
[2018-04-25] MEDS: Clindamycin 600 mg/NS Premix 600 MG/50 ML PIGGYBACK IV.SIG SCH ×2 (00:03→06:23)
[2018-04-25] MEDS: Zolpidem Tartrate 5 MG Tablet PO PRN (00:03)
[2018-04-25] MEDS: Piperacil/Tazo 3.375 GM Premix 50 ML IV.SIG SCH ×2 (04:56→11:20)
--- NOTE | 2018-04-25 06:46 | P.PNOP ---
Subjective Interval history: s/p I&D and application of vac left leg doing well. no changes. complains that vac is leaking Physical Exam Vital signs: Vital Signs 04/24/18 12:00 04/24/18 16:00 04/24/18 20:00 Temperature 97.2 F L 97.5 F L 98.1 F Pulse Rate 102 H 96 H 107 H Respiratory Rate 19 17 19 Blood Pressure 163/89 H 149/79 H 163/77 H Pulse Oximetry 98 96 96 04/25/18 00:00 Temperature 99.5 F Pulse Rate 98 H Respiratory Rate 19 Blood Pressure 181/86 H Pulse Oximetry 96 Intake & Output 04/24/18 04/24/18 04/25/18 06:59 18:59 06:59 Intake Total 3145 / 3145 715 / 715 670 / 670 Output Total 1450 / 1450 225 / 225 Balance 1695 / 1695 715 / 715 445 / 445 Weight 116.4 kg 116.4 kg Intake: IV 2665 / 2665 715 / 715 670 / 670 LR 1000 mL Inj 1,000 ML @ 30 1000 / 1000 mls/hr IV.CONT .Q24H [facility] Rx#: [id number] NS Inj 1,000 ML @ 125 mls/hr IV 1000 / 1000 .CONT .Q8H [facility] Rx#:[id number] Cleocin 600 mg/NS Premix 600 mg 50 / 50 100 / 100 50 / 50 In 50 ml @ 100 mls/hr IV.SIG Q8H [facility] Rx#:[id number] Zosyn 3.375 GM Premix 50 ML @ 100 / 100 100 / 100 100 / 100 100 mls/hr IV.SIG Q6H [facility] Rx#: [id number] Vancomycin Inj 2,000 MG In NS 515 / 515 515 / 515 520 / 520 Inj 500 ML @ 250 mls/hr IV.SIG Q12H [facility] Rx#:[id number] Oral 480 / 480 Output: Urine 1400 / 1400 Wound Vac Amount 50 / 50 225 / 225 Left Thigh 50 / 50 225 / 225 Other: Mode Setting Left Thigh Continuous Continuous Continuous # Voids 3 # Bowel Movements 1 Narrative: LLE: +vac. good seal. nvi Results - Labs CBC & Chem 7: 04/24/18 07:02 04/24/18 07:02 Laboratory Results - last 24 hr 10/04/24/18 04/24/18 07:02 07:02 10:50 WBC 12.6 H RBC 4.13 L Hgb 12.8 L Hct 37.5 L MCV 90.9 MCH 31.1 MCHC 34.2 RDW 13.0 Plt Count 214 MPV 8.5 Neut % (Auto) 83.7 H Lymph % (Auto) 8.2 L [place] % (Auto) 7.4 Eos % (Auto) 0.5 Baso % (Auto) 0.2 Neut # (Auto) 10.6 H Lymph # (Auto) 1.0 [place] # (Auto) 0.9 Eos # (Auto) 0.1 Baso # (Auto) 0.0 WBC Differential . Differential Comment Auto diff final Sodium 141 Potassium 3.8 Chloride 106 Carbon Dioxide 26.8 Anion Gap 8 BUN 10 Creatinine 0.94 Estimated GFR 81 L Random Glucose 92 Calcium 8.5 Total Bilirubin 0.7 AST 14 L ALT 53 Alkaline Phosphatase 79 Total Protein 6.3 L D Albumin 2.6 L D Vancomycin Trough 9.1 Microbiology 04/22/18 16:10 Blood - Peripheral Aerobic Blood Culture - Preliminary No growth in 2 days 04/22/18 16:10 Blood - Peripheral Anaerobic Blood Culture - Preliminary No growth in 2 days 04/22/18 16:15 Blood - Peripheral Aerobic Blood Culture - Preliminary No growth in 2 days 04/22/18 16:15 Blood - Peripheral Anaerobic Blood Culture - Preliminary No growth in 2 days 04/23/18 08:50 Wound - Thigh Gram Stain - Final 04/23/18 08:50 Wound - Thigh Wound Culture - Preliminary S. aureus MRSA 04/23/18 08:50 Wound - Thigh Gram Stain - Final 04/23/18 08:50 Wound - Thigh Wound Culture - Preliminary S. aureus MRSA 04/23/18 08:50 Wound - Thigh Gram Stain - Final 04/23/18 08:50 Wound - Thigh Wound Culture - Preliminary S. aureus MRSA 04/23/18 08:50 Wound - Thigh Gram Stain - Final 04/23/18 08:50 Wound - Thigh Wound Culture - Preliminary S. aureus MRSA 04/23/18 08:50 Wound - Thigh Fungal Smear - Final No fungal elements seen 04/23/18 08:50 Tissue - Thigh Gram Stain - Final 04/23/18 08:50 Tissue - Thigh Wound Culture - Preliminary S. aureus MRSA - Procedures s/p Left thigh incision and debridement of necrotizing fasciitis with 10 cm incision and 40 cm x 40 cm square surface of debridement of necrotic fat Assessment and Plan - Assessment and Plan 62-year-old man with likely spider bite and possible necrotizing fasciitis with significant cellulitis. pod#2 s/p Left thigh I&D, 10cm incision with [id number] area of exploration Ortho stable. Answered multiple questions from patient and acquaintances in room. Explained at length his medical condition and management. No expanding or evolving erythema seen on exam. Pain moderate controlled. Antibiotic treatment per ID - Vanccaleb Zosyn and short course of Clinda. Cultures pending. Dressings as written. Continue wound VAC. Limited activity left leg. Dr. Chaparro to follow. -plan for OR today with Miles for repeat I&D and vac change
[2018-04-25] MEDS ORDERED: Metoprolol Tartrate 25 MG Tablet PO ONE (08:18)
[2018-04-25] MEDS ORDERED: Chlorhexidine Gluconate 2% 1 Pack (2 Cloths) TOPICAL ONE (08:18)
[2018-04-25] MEDS ORDERED: Sodium Chlor 0.9% Inj 500 ML IV.SIG SCH (09:00)
[2018-04-25] MEDS: Vancomycin Inj 2,000 MG in Sodium Chlor 0.9% Inj 500 ML IV.SIG SCH ×2 (09:26→21:41)
[2018-04-25] MEDS ORDERED: Lidocaine PF 1% Inj 5 ML Syringe OTHER ONE (11:02)
--- NOTE | 2018-04-25 11:41 | P.OP ---
- Preoperative Diagnosis (1) Sepsis affecting skin Date of procedure: 04/25/18 Procedure: Irrigation and debridement of left thigh infection Anesthesia: GETA Surgeon: William Guardado MD Mechanical Project Engineer: GABRIELLE Mclaughlin PA-C The surgical procedure was assisted by my physician trust operations assistant. My P.A. presence was necessary throughout this case for the manipulation and positioning of the surgical extremity. My P.A. was assisting me throughout the duration of this procedure. The skill set of a physician trust operations assistant was medically necessary to complete this procedure. During the surgical case the land survey technician was working at the back table and the physician trust operations assistant was directly assisting me. Operation and Findings: Dank returns operating today for treatment of left thigh abscess. Informed consent was obtained and operative site was marked. He is brought the operating room. He was given IV sedation and general anesthesia. Timeout procedure was performed. Left leg was prepped with alcohol followed Hibiclens and draped in usual sterile fashion. Procedure began with irrigation debridement of the wound. The open area of wound was thoroughly debrided with curettes and rongeurs. There was noted to be fluctuance along the posterior medial thigh. An additional 2 inch incision was made over this region. A large pocket of fluid was visualized. This region was also debrided sharply. After completion of excisional debridement the wound was thoroughly irrigated with pulsatile lavage. Overall the wound was clean with no gross evidence of infection. Tw0 10 mm drains were now placed into the wound. Incisions were now closed with 3-0 PDS and 3-0 nylon. The drains were also sutured in place. Sterile dressings were applied. Patient was transferred to recovery in stable condition. Needle and sponge counts were correct.
[2018-04-25] MEDS ORDERED: fentaNYL Citrate Inj 100 MCG/2 ML Ampul ONE (11:57)
[2018-04-25] MEDS ORDERED: *Meperidine Inj 25 MG/ML Vial PERIprocedural Use ONLY ONE (12:01)
[2018-04-25] MEDS ORDERED: *morphine SULFATE 4 MG/ML PERIprocedure ONLY ONE ×2 (12:14→12:23)
[2018-04-25] MEDS: Senna/Docusate Sodium 8.6/50 MG Tablet PO SCH ×2 (13:10→21:38)
[2018-04-25] MEDS: clonazePAM 1 MG Tablet PO SCH ×2 (13:11→21:38)
[2018-04-25] MEDS: Multivitamin/Minerals Therapeutic Tablet PO SCH ×2 (13:11→21:38)
[2018-04-25] MEDS: Morphine Sulfate 15 MG SR Tablet PO SCH ×3 (13:12→23:25)
[2018-04-25] MEDS: Baclofen 10 MG Tablet PO SCH (13:21)
--- NOTE | 2018-04-25 15:25 | P.PNIM ---
Subjective Interval history: Chief Complaint: Left thigh discoloration, swelling, and pain History of Present Illness: Mr. Burris is a 62 year-old male with a history of arthritis, chronic back and neck pain, and hypertension who presented to the [place] [facility] complaining of fever (up to 103 starting 04/20), left thigh pain with purplish discoloration of skin, and swelling since Wednesday 04/18. He was found to have sepsis from left thigh cellulitis with concern for necrotizing fasciitis and was transferred to [facility] upon the recommendation of the orthopedic surgeon for further evaluation and management under the hospitalist service. MRI upon arrival showed extensive cellulitis of right thigh with no osteomyelitis or discrete abscess. The patient reports that symptoms began with a possible spider bite to left thigh. He was placed on bactrim by his PCP but his symptoms continued to progress and worsen throughout the week despite treatment. His temperature was 102.9 on arrival. Denies any history of diabetes mellitus. 04-23 Follow up Necrotizing Fasciitis left thigh/sepsis 04/23/18-patient seen and examined; s/p Left thigh incision and debridement of necrotizing fasciitis with 10 cm incision and 40 cm x 40 cm square surface of debridement of necrotic fat 04-24 Follow up Necrotizing Fasciitis left thigh/sepsis 04/24: Status post Left thigh incision and debridement of necrotizing fasciitis with 10 cm incision and 40 cm x 40 cm square surface of debridement of necrotic fat. Orthopedic surgery following, POD#1, stable by specialist. seen in his bedroom no nausea, vomit or diarrhea, has erythema, vacuum in place. 04-25 HAD REPEAT SURGERY ON LEFT THIGH TODAY WITH ORTHOPEDIC SURGERY WILL CONTINUE ANTIBIOTICS PER ID Positive MRSA in wound continue on Vanco and Zosyn await sensitivities Has chronic pain Continue on pain medications A.m. labs PT and OT Physical Exam Vital signs: Vital Signs 04/24/18 16:00 04/24/18 20:00 04/25/18 00:00 Temperature 97.5 F L 98.1 F 99.5 F Pulse Rate 96 H 107 H 98 H Respiratory Rate 17 19 19 Blood Pressure 149/79 H 163/77 H 181/86 H Pulse Oximetry 96 96 96 04/25/18 08:00 04/25/18 11:55 04/25/18 12:15 Temperature 97.7 F 98.6 F Pulse Rate 95 H 89 85 Respiratory Rate 17 18 20 Blood Pressure 163/79 H 126/69 138/63 Pulse Oximetry 95 96 98 04/25/18 12:30 04/25/18 13:00 Temperature 98.0 F 98 F Pulse Rate 94 H 73 Respiratory Rate 18 17 Blood Pressure 140/70 142/70 H Pulse Oximetry 94 L 94 L Intake & Output 04/24/18 04/25/18 04/25/18 18:59 06:59 18:59 Intake Total 715 / 715 670 / 670 1520 / 1520 Output Total 225 / 225 20 / 20 Balance 715 / 715 445 / 445 1500 / 1500 Weight 116.4 kg Intake: IV 715 / 715 670 / 670 620 / 620 Cleocin 600 mg/NS Premix 600 mg 100 / 100 50 / 50 50 / 50 In 50 ml @ 100 mls/hr IV.SIG Q8H [facility] Rx#:[id number] Zosyn 3.375 GM Premix 50 ML @ 100 / 100 100 / 100 50 / 50 100 mls/hr IV.SIG Q6H MARYURI Rx#: [id number] Vancomycin Inj 2,000 MG In NS 515 / 515 520 / 520 520 / 520 Inj 500 ML @ 250 mls/hr IV.SIG Q12H MARYURI Rx#:[id number] Anesthesia Amount 900 / 900 Output: Estimated Blood Loss 20 / 20 Wound Vac Amount 225 / 225 Left Thigh 225 / 225 Other: Mode Setting Left Thigh Continuous Continuous # Voids 3 Narrative: GENERAL: NAD awake alert and oriented x3 talkative and cooperative SKIN: Warm and dry. HEAD: Atraumatic. Normocephalic. EYES: Pupils equal and round. No scleral icterus. No injection or drainage. EOMI ENT: No nasal bleeding or discharge. Mucous membranes pink and moist. Tongue midline NECK: Trachea midline. No JVD. Supple CARDIOVASCULAR: Regular rate and rhythm. S1-S2 no S3 or S4 RESPIRATORY: No accessory muscle use. Clear to auscultation. Breath sounds equal bilaterally. GASTROINTESTINAL: Abdomen soft, non-tender, nondistended. Hepatic and splenic margins not palpable. Obese MUSCULOSKELETAL: Extremities no clubbing, cyanosis, has edema on left knee area , erythema. Left lower extremity is dressed with [address] NEUROLOGICAL: Awake and alert. PSYCHIATRIC: Appropriate mood and affect; insight and judgment normal. Results - Labs CBC & Chem 7: 04/24/18 07:02 04/24/18 07:02 Microbiology 04/22/18 16:10 Blood - Peripheral Aerobic Blood Culture - Preliminary No growth in 3 days 04/22/18 16:10 Blood - Peripheral Anaerobic Blood Culture - Preliminary No growth in 3 days 04/22/18 16:15 Blood - Peripheral Aerobic Blood Culture - Preliminary No growth in 3 days 04/22/18 16:15 Blood - Peripheral Anaerobic Blood Culture - Preliminary No growth in 3 days 04/23/18 08:50 Wound - Thigh Gram Stain - Final 04/23/18 08:50 Wound - Thigh Wound Culture - Preliminary S. aureus MRSA 04/23/18 08:50 Wound - Thigh Gram Stain - Final 04/23/18 08:50 Wound - Thigh Wound Culture - Preliminary S. aureus MRSA 04/23/18 08:50 Wound - Thigh Gram Stain - Final 04/23/18 08:50 Wound - Thigh Wound Culture - Preliminary S. aureus MRSA 04/23/18 08:50 Wound - Thigh Gram Stain - Final 04/23/18 08:50 Wound - Thigh Wound Culture - Preliminary S. aureus MRSA 04/23/18 08:50 Tissue - Thigh Gram Stain - Final 04/23/18 08:50 Tissue - Thigh Wound Culture - Preliminary S. aureus MRSA - Imaging ITS Impressions Femur MRI 04/22/18 00:00 CONCLUSION: 1. Extensive cellulitis of the right thigh especially medially without evidence for osteomyelitis or discrete abscess. Femur X-Ray 04/22/18 16:21 CONCLUSION: Negative examination Femur CT 04/22/18 16:57 CONCLUSION: 1. Impressive subcutaneous edema across the upper leg. The soft tissue edema does extend into the peripheral fibers of the vastus medialis muscle and the sartorius muscle without obvious drainable fluid collection or mass effect on the musculature. - Procedures s/p Left thigh incision and debridement of necrotizing fasciitis with 10 cm incision and 40 cm x 40 cm square surface of debridement of necrotic fat 04-25 status post irrigation and debridement of left thigh infection by Dr. Jnoes Assessment and Plan - Plan 62 years old man with Necrotizing Fasciitis left thigh Sepsis s/p Left thigh incision and debridement of necrotizing fasciitis with 10 cm incision and 40 cm x 40 cm square surface of debridement of necrotic fat Management per Orthopedic surgery Wound Vac management per protocol Abx per ID;currently on Vanc, Zosyn and short course of clindamycin pending culture reports-probable MRSA PT to treat and eval -Status post second surgery on left thigh incision and debridement of necrotic fasciitis-with irrigation and debridement of left thigh in fact Hypertension controlled at this time. -Continue home losartan -Monitor blood pressure readings -Adjust treatments as indicated Osteoarthritis-pain control as needed-is on chronic hydrocodone at home as well as chronic baclofen and chronic morphine extended release Chronic pain on chronic morphine continue Lyrica BPH on chronic Flomax DVT prophylaxis -SCDs on unaffected extremity ("nonoperative" leg) Code Status: Full code Discussed Condition With: RN and patient and case management and family Discharge Planning: Pending clearance by infectious disease and orthopedic surgery
--- NOTE | 2018-04-25 16:51 | ECG ---
Date Performed: 04/25/2018 Time Performed: 08:02:54 PTAGE: 62 years EKG: Sinus rhythm LEFT ANTERIOR FASCICULAR BLOCK ABNORMAL ECG NO PREVIOUS TRACING DOCTOR: Sulma Carranza Interpretating Date/Time 04/25/2018 16:43:32
[2018-04-25] MEDS: Morphine Inj 4 MG/ML Vial IV.PUSH PRN ×2 (17:24→19:28)
[2018-04-25] MEDS: Melatonin 5 MG Tablet PO PRN (21:38)
[2018-04-26] MEDS: Morphine Inj 4 MG/ML Vial IV.PUSH PRN ×2 (02:52→19:25)
[2018-04-26] MEDS: Morphine Sulfate 15 MG SR Tablet PO SCH ×3 (06:48→22:23)
--- NOTE | 2018-04-26 07:04 | P.PNOP ---
Subjective Interval history: POD 1 s/p I&D with wound closure left thigh doing well. reports pain but controlled Physical Exam Vital signs: Vital Signs 04/25/18 08:00 04/25/18 11:55 04/25/18 12:15 Temperature 97.7 F 98.6 F Pulse Rate 95 H 89 85 Respiratory Rate 17 18 20 Blood Pressure 163/79 H 126/69 138/63 Pulse Oximetry 95 96 98 04/25/18 12:30 04/25/18 13:00 04/25/18 16:00 Temperature 98.0 F 98 F 98.1 F Pulse Rate 94 H 73 71 Respiratory Rate 18 17 17 Blood Pressure 140/70 142/70 H 152/64 H Pulse Oximetry 94 L 94 L 95 04/25/18 20:00 04/26/18 00:00 Temperature 98.2 F 97.3 F L Pulse Rate 84 88 Respiratory Rate 16 17 Blood Pressure 149/72 H 150/73 H Pulse Oximetry 94 L 95 Intake & Output 04/25/18 04/26/18 04/26/18 18:59 06:59 18:59 Intake Total 3240 / 3240 1969 / 1969 Output Total 1272 / 1272 830 / 830 Balance 1967 / 1967 1140 / 1140 Weight 114.7 kg Intake: IV 1620 / 1620 1070 / 1070 LR 1000 mL Inj 1,000 ML @ 80 1000 / 1000 550 / 550 mls/hr IV.CONT .[id number] [facility] Rx# :[id number] Cleocin 600 mg/NS Premix 600 mg 50 / 50 In 50 ml @ 100 mls/hr IV.SIG Q8H MARYURI Rx#:[id number] Zosyn 3.375 GM Premix 50 ML @ 50 / 50 100 mls/hr IV.SIG Q6H [facility]ARYURI Rx#: [id number] Vancomycin Inj 2,000 MG In NS 520 / 520 520 / 520 Inj 500 ML @ 250 mls/hr IV.SIG Q12H MARYURI Rx#:[id number] Oral 720 / 720 900 / 900 Anesthesia Amount 900 / 900 Output: Urine 1250 / 1250 700 / 700 Urine/Stool Mix 2 / 2 Estimated Blood Loss 20 / 20 Wound Drainage 130 / 130 # 1 Anterior Knee 55 / 55 # 2 Anterior Knee HONEY Drain 75 / 75 Other: Mode Setting Left Thigh Continuous Date of Last Bowel Movement 04/25/18 Narrative: LLE: dressings clean and dry. intact. NVI. +drains x 2. Results - Labs CBC & Chem 7: 04/24/18 07:02 04/24/18 07:02 Microbiology 04/23/18 08:50 Wound - Thigh Acid Fast Bacilli Smear - Final No acid fast bacilli seen 04/23/18 08:50 Wound - Thigh Acid Fast Bacilli Smear - Final No acid fast bacilli seen 04/23/18 08:50 Wound - Thigh Acid Fast Bacilli Smear - Final No acid fast bacilli seen 04/23/18 08:50 Wound - Thigh Acid Fast Bacilli Smear - Final No acid fast bacilli seen 04/23/18 08:50 Tissue - Thigh Acid Fast Bacilli Smear - Final No acid fast bacilli seen 04/22/18 16:10 Blood - Peripheral Aerobic Blood Culture - Preliminary No growth in 3 days 04/22/18 16:10 Blood - Peripheral Anaerobic Blood Culture - Preliminary No growth in 3 days 04/22/18 16:15 Blood - Peripheral Aerobic Blood Culture - Preliminary No growth in 3 days 04/22/18 16:15 Blood - Peripheral Anaerobic Blood Culture - Preliminary No growth in 3 days 04/23/18 08:50 Wound - Thigh Gram Stain - Final 04/23/18 08:50 Wound - Thigh Wound Culture - Preliminary S. aureus MRSA 04/23/18 08:50 Wound - Thigh Gram Stain - Final 04/23/18 08:50 Wound - Thigh Wound Culture - Preliminary S. aureus MRSA 04/23/18 08:50 Wound - Thigh Gram Stain - Final 04/23/18 08:50 Wound - Thigh Wound Culture - Preliminary S. aureus MRSA 04/23/18 08:50 Wound - Thigh Gram Stain - Final 04/23/18 08:50 Wound - Thigh Wound Culture - Preliminary S. aureus MRSA 04/23/18 08:50 Tissue - Thigh Gram Stain - Final 04/23/18 08:50 Tissue - Thigh Wound Culture - Preliminary S. aureus MRSA - Procedures s/p Left thigh incision and debridement of necrotizing fasciitis with 10 cm incision and 40 cm x 40 cm square surface of debridement of necrotic fat 10- status post irrigation and debridement of left thigh infection by Dr. Jones Assessment and Plan - Assessment and Plan 1) Left Thigh Abscess and Infection s/p I&D and wound closure - POD 1 -WBAT -daily dressing changes POD 2 -maintain drains til POD 3 -Infectious Dz for Abx mgmt -plan for DC home once Abx arranged and drains DC'd -f/u with Dr Chaparro in 2 weeks -patient currently receiving Hydrocodone 10 and morphine from pain mgmt. will defer pain meds to pain management
[2018-04-26] MEDS: clonazePAM 1 MG Tablet PO SCH ×2 (08:43→21:06)
[2018-04-26] MEDS: Senna/Docusate Sodium 8.6/50 MG Tablet PO SCH ×2 (08:43→21:07)
[2018-04-26] MEDS: Multivitamin/Minerals Therapeutic Tablet PO SCH ×2 (08:43→21:07)
[2018-04-26] MEDS ORDERED: Pharmacy Ordered Lab Info OTHER ONE (08:45)
--- NOTE | 2018-04-26 10:11 | P.PNID ---
Subjective Remarks: Patient is a 62-year-old male, presented to the hospital for further evaluation of progressive swelling redness and discoloration on his left thigh. Patient noted initially what looks like a puncture wound on his medial left thigh. He went to his primary care doctor, and was given a prescription for Bactrim. Patient stated that there was no redness. It has a brownish color to it. Over the next day, he developed increasing redness, swelling, and there was an area that looks purplish in color. He was also getting painful. He was also having fever and chills, with temperature documented to around 102. He has not had any sore throat or any respiratory complaint. No nausea or vomiting or any diarrhea. He denies any urinary complaints. He does not remember having any insect bite, or any trauma to his left lower extremity. Patient was seen by orthopedic, and there was some concern about progressive infection, and he went to surgery today. He apparently had findings of necrotizing fasciitis, and there was significant purulence seen. He has a wound VAC in place. His white count is elevated. He has been febrile. He is currently on Zosyn and vancomycin. Infectious disease consultation has been requested to evaluate the patient. Notes reviewed Temps ok WBC lower C/O pain C/O difficulty sleeping last night 2 loose stool yesterday, no BM today Does not want to take the stool softener Prelim OR C/S MRSA Antibiotics: Vancomycin Lines: PIV Past Medical History: Hypertension Arthritis Back and neck OR Allergies/Adverse Reactions: Allergies No Known Allergies Allergy (Verified 04/22/18 15:52) Objective Vital Signs 04/25/18 11:55 04/25/18 12:15 04/25/18 12:30 Temperature 98.6 F 98.0 F Pulse Rate 89 85 94 H Respiratory Rate 18 20 18 Blood Pressure 126/69 138/63 140/70 Pulse Oximetry 96 98 94 L 04/25/18 13:00 04/25/18 16:00 04/25/18 20:00 Temperature 98 F 98.1 F 98.2 F Pulse Rate 73 71 84 Respiratory Rate 17 17 16 Blood Pressure 142/70 H 152/64 H 149/72 H Pulse Oximetry 94 L 95 94 L 04/26/18 00:00 04/26/18 08:00 Temperature 97.3 F L 97.4 F L Pulse Rate 88 69 Respiratory Rate 17 17 Blood Pressure 150/73 H 134/63 Pulse Oximetry 95 94 L Intake & Output 04/25/18 04/26/18 04/26/18 18:59 06:59 18:59 Intake Total 3240 / 3240 1969 Output Total 1272 / 1272 830 / 830 Balance 1967 1140 / 1140 Weight 114.7 kg Intake: IV 1620 / 1620 1070 / 1070 LR 1000 mL Inj 1,000 ML @ 80 1000 / 1000 550 / 550 mls/hr IV.CONT .[id number] [facility] Rx# :[id number] Cleocin 600 mg/NS Premix 600 mg 50 / 50 In 50 ml @ 100 mls/hr IV.SIG Q8H [facility] Rx#:[id number] Zosyn 3.375 GM Premix 50 ML @ 50 / 50 100 mls/hr IV.SIG Q6H [facility] Rx#: [id number] Vancomycin Inj 2,000 MG In NS 520 / 520 520 / 520 Inj 500 ML @ 250 mls/hr IV.SIG Q12H [facility] Rx#:[id number] Oral 720 / 720 900 / 900 Anesthesia Amount 900 / 900 Output: Urine 1250 / 1250 700 / 700 Urine/Stool Mix 2 / 2 Estimated Blood Loss Wound Drainage 130 / 130 # 1 Anterior Knee 55 / 55 # 2 Anterior Knee HONEY Drain 75 / 75 Other: Mode Setting Left Thigh Continuous Date of Last Bowel Movement 04/25/18 04/23/18 08:50 Tissue - Thigh Gram Stain - Final 04/23/18 08:50 Tissue - Thigh Wound Culture - Final S. aureus MRSA 04/23/18 08:50 Wound - Thigh Acid Fast Bacilli Smear - Final No acid fast bacilli seen 04/23/18 08:50 Wound - Thigh Mycobacterial Culture - Pending 04/23/18 08:50 Wound - Thigh Acid Fast Bacilli Smear - Final No acid fast bacilli seen 04/23/18 08:50 Wound - Thigh Mycobacterial Culture - Pending 04/23/18 08:50 Wound - Thigh Acid Fast Bacilli Smear - Final No acid fast bacilli seen 04/23/18 08:50 Wound - Thigh Mycobacterial Culture - Pending 04/23/18 08:50 Wound - Thigh Acid Fast Bacilli Smear - Final No acid fast bacilli seen 04/23/18 08:50 Wound - Thigh Mycobacterial Culture - Pending 04/23/18 08:50 Tissue - Thigh Acid Fast Bacilli Smear - Final No acid fast bacilli seen 04/23/18 08:50 Tissue - Thigh Mycobacterial Culture - Pending 04/22/18 16:10 Blood - Peripheral Aerobic Blood Culture - Preliminary No growth in 3 days 04/22/18 16:10 Blood - Peripheral Anaerobic Blood Culture - Preliminary No growth in 3 days 04/22/18 16:15 Blood - Peripheral Aerobic Blood Culture - Preliminary No growth in 3 days 04/22/18 16:15 Blood - Peripheral Anaerobic Blood Culture - Preliminary No growth in 3 days 04/23/18 08:50 Wound - Thigh Gram Stain - Final 04/23/18 08:50 Wound - Thigh Wound Culture - Preliminary S. aureus MRSA 04/23/18 08:50 Wound - Thigh Gram Stain - Final 04/23/18 08:50 Wound - Thigh Wound Culture - Preliminary S. aureus MRSA 04/23/18 08:50 Wound - Thigh Gram Stain - Final 04/23/18 08:50 Wound - Thigh Wound Culture - Preliminary S. aureus MRSA 04/23/18 08:50 Wound - Thigh Gram Stain - Final 04/23/18 08:50 Wound - Thigh Wound Culture - Preliminary S. aureus MRSA 04/23/18 08:50 Wound - Thigh Fungal Smear - Final No fungal elements seen 04/23/18 08:50 Wound - Thigh Fungal Culture - Pending 04/23/18 08:50 Wound - Thigh Fungal Smear - Final No fungal elements seen 04/23/18 08:50 Wound - Thigh Fungal Culture - Pending 04/23/18 08:50 Wound - Thigh Fungal Smear - Final No fungal elements seen 04/23/18 08:50 Wound - Thigh Fungal Culture - Pending 04/23/18 08:50 Tissue - Thigh Fungal Smear - Final No fungal elements seen 04/23/18 08:50 Tissue - Thigh Fungal Culture - Pending 04/23/18 08:50 Wound - Thigh Fungal Smear - Final No fungal elements seen 04/23/18 08:50 Wound - Thigh Fungal Culture - Pending Imaging: ITS Impressions Femur MRI 04/22/18 00:00 CONCLUSION: 1. Extensive cellulitis of the right thigh especially medially without evidence for osteomyelitis or discrete abscess. Femur X-Ray 04/22/18 16:21 CONCLUSION: Negative examination Femur CT 04/22/18 16:57 CONCLUSION: 1. Impressive subcutaneous edema across the upper leg. The soft tissue edema does extend into the peripheral fibers of the vastus medialis muscle and the sartorius muscle without obvious drainable fluid collection or mass effect on the musculature. Physical Exam: GENERAL: awake and alert, not in respiratory distress. SKIN: Warm and dry. No generalized rash. HEAD: Atraumatic. Normocephalic. No temporal wasting, or tenderness. EYES: [place] conjunctiva. No petechia or hemorrhage. No scleral icterus. No injection or drainage. EARS, NOSE AND THROAT: Nose without bleeding or purulent nasal discharge. Mucous membranes pink and moist. No oral lesions noted. NECK: Trachea midline. Supple and not tender, no meningeal signs CARDIOVASCULAR: Regular rate and rhythm. No murmurs, rubs or gallops heard RESPIRATORY: Clear to auscultation. Breath sounds equal bilaterally. No rales , wheezing or rhonchi ABDOMEN: Soft, non-tender, nondistended. Bowel sounds present and normoactive. No guarding. No rebound. No organomegaly. EXTREMITIES: No clubbing, cyanosis. Has dry dressing over his L knee/thigh, [address] with sanguineous fluid, swollen but looks less. No calf tenderness. NEUROLOGICAL: Grossly within normal limits. PSYCHIATRIC: calm and cooperative. LINE: No evidence of infection Assessment and Plan - Plan Impression Necrotizing fasciitis L thigh - prelim C/S MRSA Sepsis due to above Fevers, better leukocytosis Recommendation Continue vanco Follow C/S and adjust Abx Monitor progress Repeat CBC Explained plan to the patient and sister
[2018-04-26] MEDS: Baclofen 10 MG Tablet PO SCH (10:13)
[2018-04-26] MEDS: Vancomycin Inj 2,000 MG in Sodium Chlor 0.9% Inj 500 ML IV.SIG SCH ×3 (10:13→21:46)
[2018-04-26 11:47] LABS: Baso % (Auto) 0.4 % (0.0-2.0); Eos # (Auto) 0.2 th/mm3 (0.0-0.4); Hematocrit 36.8 % (39.0-51.0); Hemoglobin 12.5 gm/dL (13.0-17.0); Lymph % (Auto) 13.2 % (9.0-44.0); Mean Corpuscular HGB Conc 33.9 % (32.0-36.0); Mean Corpuscular Hemoglobin 31.2 pg (27.0-34.0); Mean Corpuscular Volume 91.9 fL (80.0-100.0); Mean Platelet Volume 7.7 fL (7.0-11.0); Mono # (Auto) 0.7 th/mm3 (0.0-0.9); Mono % (Auto) 8.7 % (0.0-8.0); Neut # (Auto) 5.7 th/mm3 (1.8-7.7); Neut % (Auto) 75.7 % (16.0-70.0); Platelet Count 311 th/mm3 (150-450); Red Blood Count 4.01 mil/mm3 (4.50-5.90); Red Cell Distribution Width 13.1 % (11.6-17.2); White Blood Count 7.5 th/mm3 (4.0-11.0)
[2018-04-26 11:59] LABS: Alanine Aminotransferase 43 U/L (12-78); Albumin 2.5 g/dL (3.4-5.0); Anion Gap 8 meq/L (5-15); Aspartate Aminotransferase 19 U/L (15-37); Blood Urea Nitrogen 6 mg/dL (7-18); Calcium 8.5 mg/dL (8.5-10.1); Carbon Dioxide 27.5 meq/L (21.0-32.0); Chloride 109 meq/L (98-107); Glomerular Filtration Rate Greater Than 89 mL/min (>89); Glucose,Random 130 mg/dL (74-106); Magnesium 2.3 mg/dL (1.5-2.5); Phosphorus 2.8 mg/dL (2.5-4.9); Potassium 3.5 meq/L (3.5-5.1); Sodium 144 meq/L (136-145)
[2018-04-26 12:07] LABS: Alkaline Phosphatase 63 U/L (45-117); Free T4 (Free Thyroxine) 1.46 ng/dL (0.76-1.46); Thyroid Stimulating Hormone 0.483 uIU/mL (0.358-3.740); Total Protein 6.2 g/dL (6.4-8.2)
--- NOTE | 2018-04-26 13:52 | P.PNIM ---
Subjective Interval history: Chief Complaint: Left thigh discoloration, swelling, and pain History of Present Illness: Mr. Burris is a 62 year-old male with a history of arthritis, chronic back and neck pain, and hypertension who presented to the [place] ER complaining of fever (up to 103 starting 04/20), left thigh pain with purplish discoloration of skin, and swelling since Wednesday 04/18. He was found to have sepsis from left thigh cellulitis with concern for necrotizing fasciitis and was transferred to [facility] upon the recommendation of the orthopedic surgeon for further evaluation and management under the hospitalist service. MRI upon arrival showed extensive cellulitis of right thigh with no osteomyelitis or discrete abscess. The patient reports that symptoms began with a possible spider bite to left thigh. He was placed on bactrim by his PCP but his symptoms continued to progress and worsen throughout the week despite treatment. His temperature was 102.9 on arrival. Denies any history of diabetes mellitus. 04-23 Follow up Necrotizing Fasciitis left thigh/sepsis 04/23/18-patient seen and examined; s/p Left thigh incision and debridement of necrotizing fasciitis with 10 cm incision and 40 cm x 40 cm square surface of debridement of necrotic fat 04-24 Follow up Necrotizing Fasciitis left thigh/sepsis 04/24: Status post Left thigh incision and debridement of necrotizing fasciitis with 10 cm incision and 40 cm x 40 cm square surface of debridement of necrotic fat. Orthopedic surgery following, POD#1, stable by specialist. seen in his bedroom no nausea, vomit or diarrhea, has erythema, vacuum in place. 04-25 HAD REPEAT SURGERY ON LEFT THIGH TODAY WITH ORTHOPEDIC SURGERY WILL CONTINUE ANTIBIOTICS PER ID Positive MRSA in wound continue on Vanco and Zosyn await sensitivities Has chronic pain Continue on pain medications A.m. labs PT and OT 04-26 ANTIBIOTICS PER ID ON VANCOMYCIN STILL DW RN AND PT AND CM STILL HAVE DRAINS Physical Exam Vital signs: Vital Signs 04/25/18 16:00 04/25/18 20:00 04/26/18 00:00 Temperature 98.1 F 98.2 F 97.3 F L Pulse Rate 71 84 88 Respiratory Rate 17 16 17 Blood Pressure 152/64 H 149/72 H 150/73 H Pulse Oximetry 95 94 L 95 04/26/18 08:00 04/26/18 11:52 Temperature 97.4 F L 98.6 F Pulse Rate 69 72 Respiratory Rate 17 17 Blood Pressure 134/63 149/69 H Pulse Oximetry 94 L 96 Intake & Output 04/25/18 04/26/18 04/26/18 18:59 06:59 18:59 Intake Total 3240 / 3240 1969 Output Total 1272 / 1272 830 / 830 Balance 1967 1140 / 1140 Weight 114.7 kg Intake: IV 1620 / 1620 1070 / 1070 LR 1000 mL Inj 1,000 ML @ 80 1000 / 1000 550 / 550 mls/hr IV.CONT .[id number] MARYURI Rx# :[id number] Cleocin 600 mg/NS Premix 600 mg 50 / 50 In 50 ml @ 100 mls/hr IV.SIG Q8H MARYURI Rx#:[id number] Zosyn 3.375 GM Premix 50 ML @ 50 / 50 100 mls/hr IV.SIG Q6H MARYURI Rx#: [id number] Vancomycin Inj 2,000 MG In NS 520 / 520 520 / 520 Inj 500 ML @ 250 mls/hr IV.SIG Q12H MARYURI Rx#:[id number] Oral 720 / 720 900 / 900 Anesthesia Amount 900 / 900 Output: Urine 1250 / 1250 700 / 700 Urine/Stool Mix 2 / 2 Estimated Blood Loss 20 / 20 Wound Drainage 130 / 130 # 1 Anterior Knee 55 / 55 # 2 Anterior Knee HONEY Drain 75 / 75 Other: Mode Setting Left Thigh Continuous Date of Last Bowel Movement 04/25/18 Narrative: GENERAL: NAD awake alert and oriented x3 talkative and cooperative SKIN: Warm and dry. HEAD: Atraumatic. Normocephalic. EYES: Pupils equal and round. No scleral icterus. No injection or drainage. EOMI ENT: No nasal bleeding or discharge. Mucous membranes pink and moist. Tongue midline NECK: Trachea midline. No JVD. Supple CARDIOVASCULAR: Regular rate and rhythm. S1-S2 no S3 or S4 RESPIRATORY: No accessory muscle use. Clear to auscultation. Breath sounds equal bilaterally. GASTROINTESTINAL: Abdomen soft, non-tender, nondistended. Hepatic and splenic margins not palpable. Obese MUSCULOSKELETAL: Extremities no clubbing, cyanosis, has edema on left knee area , erythema. Left lower extremity is dressed with [address] NEUROLOGICAL: Awake and alert. PSYCHIATRIC: Appropriate mood and affect; insight and judgment normal. Results - Labs CBC & Chem 7: 04/26/18 10:40 04/26/18 10:40 Laboratory Results - last 24 hr 04/26/18 04/26/18 04/26/18 09:00 10:40 10:40 WBC 7.5 RBC 4.01 L Hgb 12.5 L Hct 36.8 L MCV 91.9 MCH 31.2 MCHC 33.9 RDW 13.1 Plt Count 311 D MPV 7.7 Neut % (Auto) 75.7 H Lymph % (Auto) 13.2 Cochran % (Auto) 8.7 H Eos % (Auto) 2.0 Baso % (Auto) 0.4 Neut # (Auto) 5.7 Lymph # (Auto) 1.0 Cochran # (Auto) 0.7 Eos # (Auto) 0.2 Baso # (Auto) 0.0 WBC Differential . Differential Comment Auto diff final Sodium 144 Potassium 3.5 Chloride 109 H Carbon Dioxide 27.5 Anion Gap 8 BUN 6 L Creatinine 0.84 Estimated GFR Greater than 89 Random Glucose 130 H Calcium 8.5 Phosphorus 2.8 Magnesium 2.3 Total Bilirubin 0.5 AST 19 ALT 43 Alkaline Phosphatase 63 Total Protein 6.2 L Albumin 2.5 L TSH 0.483 Free T4 1.46 Vancomycin Trough 16.3 H Microbiology 04/22/18 16:10 Blood - Peripheral Aerobic Blood Culture - Preliminary No growth in 4 days 04/22/18 16:10 Blood - Peripheral Anaerobic Blood Culture - Preliminary No growth in 4 days 04/22/18 16:15 Blood - Peripheral Aerobic Blood Culture - Preliminary No growth in 4 days 04/22/18 16:15 Blood - Peripheral Anaerobic Blood Culture - Preliminary No growth in 4 days 04/23/18 08:50 Wound - Thigh Gram Stain - Final 04/23/18 08:50 Wound - Thigh Wound Culture - Final S. aureus MRSA 04/23/18 08:50 Wound - Thigh Gram Stain - Final 04/23/18 08:50 Wound - Thigh Wound Culture - Final S. aureus MRSA 04/23/18 08:50 Wound - Thigh Gram Stain - Final 04/23/18 08:50 Wound - Thigh Wound Culture - Final S. aureus MRSA 04/23/18 08:50 Wound - Thigh Gram Stain - Final 04/23/18 08:50 Wound - Thigh Wound Culture - Final S. aureus MRSA 04/23/18 08:50 Tissue - Thigh Gram Stain - Final 04/23/18 08:50 Tissue - Thigh Wound Culture - Final S. aureus MRSA 04/23/18 08:50 Wound - Thigh Acid Fast Bacilli Smear - Final No acid fast bacilli seen 04/23/18 08:50 Wound - Thigh Acid Fast Bacilli Smear - Final No acid fast bacilli seen 04/23/18 08:50 Wound - Thigh Acid Fast Bacilli Smear - Final No acid fast bacilli seen 04/23/18 08:50 Wound - Thigh Acid Fast Bacilli Smear - Final No acid fast bacilli seen 04/23/18 08:50 Tissue - Thigh Acid Fast Bacilli Smear - Final No acid fast bacilli seen - Imaging ITS Impressions Femur MRI 04/22/18 00:00 CONCLUSION: 1. Extensive cellulitis of the right thigh especially medially without evidence for osteomyelitis or discrete abscess. Femur X-Ray 04/22/18 16:21 CONCLUSION: Negative examination Femur CT 04/22/18 16:57 CONCLUSION: 1. Impressive subcutaneous edema across the upper leg. The soft tissue edema does extend into the peripheral fibers of the vastus medialis muscle and the sartorius muscle without obvious drainable fluid collection or mass effect on the musculature. - Procedures s/p Left thigh incision and debridement of necrotizing fasciitis with 10 cm incision and 40 cm x 40 cm square surface of debridement of necrotic fat 10- status post irrigation and debridement of left thigh infection by Dr. Jones Assessment and Plan - Plan 62 years old man with Necrotizing Fasciitis left thigh Sepsis s/p Left thigh incision and debridement of necrotizing fasciitis with 10 cm incision and 40 cm x 40 cm square surface of debridement of necrotic fat Management per Orthopedic surgery Wound Vac management per protocol Abx per ID;currently on Vanc, FOR MRSA PT to treat and eval -Status post second surgery on left thigh incision and debridement of necrotic fasciitis-with irrigation and debridement of left thigh in fact Hypertension controlled at this time. -Continue home losartan -Monitor blood pressure readings -Adjust treatments as indicated Osteoarthritis-pain control as needed-is on chronic hydrocodone at home as well as chronic baclofen and chronic morphine extended release Chronic pain on chronic morphine continue Lyrica BPH on chronic Flomax DVT prophylaxis -SCDs on unaffected extremity ("nonoperative" leg) ANTIBIOTICS PER ID ON VANCO NOW FOR MRSA Code Status: FULL CODE Discussed Condition With: RN AND PT AND CM Discharge Planning: Pending clearance by infectious disease and orthopedic surgery
[2018-04-26 17:18] LABS: Hemoglobin A1c 5.2 % (4.3-6.0)
[2018-04-26] MEDS: Acetaminophen 325 MG Tablet PO PRN (21:09)
[2018-04-26] MEDS: Melatonin 5 MG Tablet PO PRN (22:23)
[2018-04-27] MEDS: Morphine Sulfate 15 MG SR Tablet PO SCH ×4 (06:08→23:32)
[2018-04-27 08:38] LABS: Baso # (Auto) 0.1 th/mm3 (0.0-0.2); Baso % (Auto) 0.7 % (0.0-2.0); Eos # (Auto) 0.2 th/mm3 (0.0-0.4); Eos % (Auto) 2.2 % (0.0-4.0); Hematocrit 34.6 % (39.0-51.0); Lymph # (Auto) 1.2 th/mm3 (1.0-4.8); Lymph % (Auto) 17.1 % (9.0-44.0); Mean Corpuscular HGB Conc 34.8 % (32.0-36.0); Mean Corpuscular Hemoglobin 31.2 pg (27.0-34.0); Mean Corpuscular Volume 89.7 fL (80.0-100.0); Mean Platelet Volume 7.8 fL (7.0-11.0); Mono # (Auto) 0.8 th/mm3 (0.0-0.9); Mono % (Auto) 11.4 % (0.0-8.0); Neut # (Auto) 4.9 th/mm3 (1.8-7.7); Neut % (Auto) 68.6 % (16.0-70.0); Platelet Count 341 th/mm3 (150-450); Red Blood Count 3.86 mil/mm3 (4.50-5.90); Red Cell Distribution Width 13.2 % (11.6-17.2); White Blood Count 7.2 th/mm3 (4.0-11.0)
[2018-04-27] MEDS: Baclofen 10 MG Tablet PO SCH (08:40)
[2018-04-27] MEDS: Multivitamin/Minerals Therapeutic Tablet PO SCH ×2 (08:40→20:42)
[2018-04-27] MEDS: clonazePAM 1 MG Tablet PO SCH ×2 (08:40→20:42)
[2018-04-27] MEDS: Senna/Docusate Sodium 8.6/50 MG Tablet PO SCH ×2 (08:41→20:42)
[2018-04-27] MEDS: Vancomycin Inj 2,000 MG in Sodium Chlor 0.9% Inj 500 ML IV.SIG SCH ×2 (08:41→23:33)
[2018-04-27 08:59] LABS: Albumin 2.6 g/dL (3.4-5.0); Anion Gap 5 meq/L (5-15); Aspartate Aminotransferase 20 U/L (15-37); Blood Urea Nitrogen 4 mg/dL (7-18); Calcium 8.2 mg/dL (8.5-10.1); Carbon Dioxide 31.7 meq/L (21.0-32.0); Chloride 108 meq/L (98-107); Glomerular Filtration Rate Greater Than 89 mL/min (>89); Glucose,Random 101 mg/dL (74-106); Magnesium 2.2 mg/dL (1.5-2.5); Potassium 3.6 meq/L (3.5-5.1); Sodium 145 meq/L (136-145)
[2018-04-27 09:05] LABS: Alanine Aminotransferase 38 U/L (12-78); Alkaline Phosphatase 56 U/L (45-117)
--- NOTE | 2018-04-27 10:42 | P.PNOP ---
Subjective Interval history: Pain is controlled and resting comfortably Physical Exam Vital signs: Vital Signs 04/26/18 11:52 04/26/18 15:54 04/26/18 20:00 Temperature 98.6 F 99.1 F 98.6 F Pulse Rate 72 68 70 Respiratory Rate 17 18 17 Blood Pressure 149/69 H 147/79 H 169/85 H Pulse Oximetry 96 18 L 96 04/26/18 21:40 04/26/18 21:41 04/26/18 23:18 Temperature Pulse Rate Respiratory Rate 20 20 20 Blood Pressure Pulse Oximetry 04/27/18 00:00 04/27/18 00:19 04/27/18 01:37 Temperature 98.2 F Pulse Rate 76 Respiratory Rate 17 20 20 Blood Pressure 152/75 H Pulse Oximetry 96 04/27/18 07:21 04/27/18 08:00 Temperature 98.0 F 98.1 F Pulse Rate 93 H 61 Respiratory Rate 16 Blood Pressure 181/93 H 115/60 Pulse Oximetry 96 98 Intake & Output 04/26/18 04/27/18 04/27/18 18:59 06:59 18:59 Intake Total 1720 / 1720 3020 / 3020 Output Total 3505 / 3505 50 / 50 Balance 1720 / 1720 -485 / -485 -50 / -50 Weight 115.5 kg Intake: IV 520 / 520 520 / 520 Vancomycin Inj 2,000 MG In NS 520 / 520 520 / 520 Inj 500 ML @ 250 mls/hr IV.SIG Q12H MARYURI Rx#:[id number] Oral 1200 / 1200 2500 / 2500 Output: Urine 3400 / 3400 Wound Drainage 105 / 105 50 / 50 # 1 Anterior Knee 50 / 50 20 / 20 # 2 Anterior Knee HONEY Drain 55 / 55 30 / 30 Other: # Voids 5 Date of Last Bowel Movement 04/24/18 # Bowel Movements 1 Narrative: Left lower extremity: Clean dry dressings intact. Dressings removed revealing 2 drains that are well maintained with moderate drainage. Incisions are healing well with a portion between the 2 incisions with continued bruising. Does not appear that the skin is breaking down or becoming necrotic. Distally intact sensation with active dorsiflexion and plantarflexion of the foot. Results - Labs CBC & Chem 7: 04/27/18 07:30 04/27/18 07:30 Laboratory Results - last 24 hr 04/26/18 04/26/18 04/26/18 10:40 10:40 10:40 WBC 7.5 RBC 4.01 L Hgb 12.5 L Hct 36.8 L MCV 91.9 MCH 31.2 MCHC 33.9 RDW 13.1 Plt Count 311 D MPV 7.7 Neut % (Auto) 75.7 H Lymph % (Auto) 13.2 Lee % (Auto) 8.7 H Eos % (Auto) 2.0 Baso % (Auto) 0.4 Neut # (Auto) 5.7 Lymph # (Auto) 1.0 Lee # (Auto) 0.7 Eos # (Auto) 0.2 Baso # (Auto) 0.0 WBC Differential . Differential Comment Auto diff final Sodium 144 Potassium 3.5 Chloride 109 H Carbon Dioxide 27.5 Anion Gap 8 BUN 6 L Creatinine 0.84 Estimated GFR Greater than 89 Random Glucose 130 H Hemoglobin A1c 5.2 Calcium 8.5 Phosphorus 2.8 Magnesium 2.3 Total Bilirubin 0.5 AST 19 ALT 43 Alkaline Phosphatase 63 Total Protein 6.2 L Albumin 2.5 L TSH 0.483 Free T4 1.46 04/27/18 04/27/18 07:30 07:30 WBC 7.2 RBC 3.86 L Hgb 12.0 L Hct 34.6 L MCV 89.7 MCH 31.2 MCHC 34.8 RDW 13.2 Plt Count 341 MPV 7.8 Neut % (Auto) 68.6 Lymph % (Auto) 17.1 Lee % (Auto) 11.4 H Eos % (Auto) 2.2 Baso % (Auto) 0.7 Neut # (Auto) 4.9 Lymph # (Auto) 1.2 Lee # (Auto) 0.8 Eos # (Auto) 0.2 Baso # (Auto) 0.1 WBC Differential . Differential Comment Auto diff final Sodium 145 Potassium 3.6 Chloride 108 H Carbon Dioxide 31.7 Anion Gap 5 BUN 4 L Creatinine 0.75 Estimated GFR Greater than 89 Random Glucose 101 Hemoglobin A1c Calcium 8.2 L Phosphorus 3.0 Magnesium 2.2 Total Bilirubin 0.4 AST 20 ALT 38 Alkaline Phosphatase 56 Total Protein 6.0 L Albumin 2.6 L TSH Free T4 Microbiology 04/22/18 16:10 Blood - Peripheral Aerobic Blood Culture - Preliminary No growth in 4 days 04/22/18 16:10 Blood - Peripheral Anaerobic Blood Culture - Preliminary No growth in 4 days 04/22/18 16:15 Blood - Peripheral Aerobic Blood Culture - Preliminary No growth in 4 days 04/22/18 16:15 Blood - Peripheral Anaerobic Blood Culture - Preliminary No growth in 4 days 04/23/18 08:50 Wound - Thigh Gram Stain - Final 04/23/18 08:50 Wound - Thigh Wound Culture - Final S. aureus MRSA 04/23/18 08:50 Wound - Thigh Gram Stain - Final 04/23/18 08:50 Wound - Thigh Wound Culture - Final S. aureus MRSA 04/23/18 08:50 Wound - Thigh Gram Stain - Final 04/23/18 08:50 Wound - Thigh Wound Culture - Final S. aureus MRSA 04/23/18 08:50 Wound - Thigh Gram Stain - Final 04/23/18 08:50 Wound - Thigh Wound Culture - Final S. aureus MRSA 04/23/18 08:50 Tissue - Thigh Gram Stain - Final 04/23/18 08:50 Tissue - Thigh Wound Culture - Final S. aureus MRSA - Procedures s/p Left thigh incision and debridement of necrotizing fasciitis with 10 cm incision and 40 cm x 40 cm square surface of debridement of necrotic fat 04-25 status post irrigation and debridement of left thigh infection by Dr. Jones Assessment and Plan - Assessment and Plan 1) Left Thigh Abscess and Infection s/p I&D and wound closure - POD 2 -WBAT -daily dressing -maintain drains -Infectious Dz for Abx mgmt -plan for DC home once Abx arranged and drains DC'd -f/u with Dr Chaparro in 2 weeks -patient currently receiving Hydrocodone 10 and morphine from pain mgmt. will defer pain meds to pain management
[2018-04-27] MEDS: Acetaminophen 325 MG Tablet PO PRN ×2 (10:57→20:41)
--- NOTE | 2018-04-27 13:41 | P.PNIM ---
Subjective Interval history: Chief Complaint: Left thigh discoloration, swelling, and pain History of Present Illness: Mr. Burris is a 62 year-old male with a history of arthritis, chronic back and neck pain, and hypertension who presented to the [place] ER complaining of fever (up to 103 starting 04/20), left thigh pain with purplish discoloration of skin, and swelling since Wednesday 04/18. He was found to have sepsis from left thigh cellulitis with concern for necrotizing fasciitis and was transferred to [facility] upon the recommendation of the orthopedic surgeon for further evaluation and management under the hospitalist service. MRI upon arrival showed extensive cellulitis of right thigh with no osteomyelitis or discrete abscess. The patient reports that symptoms began with a possible spider bite to left thigh. He was placed on bactrim by his PCP but his symptoms continued to progress and worsen throughout the week despite treatment. His temperature was 102.9 on arrival. Denies any history of diabetes mellitus. 04-23 Follow up Necrotizing Fasciitis left thigh/sepsis 04/23/18-patient seen and examined; s/p Left thigh incision and debridement of necrotizing fasciitis with 10 cm incision and 40 cm x 40 cm square surface of debridement of necrotic fat 04-24 Follow up Necrotizing Fasciitis left thigh/sepsis 04/24: Status post Left thigh incision and debridement of necrotizing fasciitis with 10 cm incision and 40 cm x 40 cm square surface of debridement of necrotic fat. Orthopedic surgery following, POD#1, stable by specialist. seen in his bedroom no nausea, vomit or diarrhea, has erythema, vacuum in place. 10 HAD REPEAT SURGERY ON LEFT THIGH TODAY WITH ORTHOPEDIC SURGERY WILL CONTINUE ANTIBIOTICS PER ID Positive MRSA in wound continue on Vanco and Zosyn await sensitivities Has chronic pain Continue on pain medications A.m. labs PT and OT 04-26 ANTIBIOTICS PER ID ON VANCOMYCIN STILL DW RN AND PT AND CM STILL HAVE DRAINS 04-27 CONTINUE ON ANTIBIOTICS ON VANCOMYCIN STILL STILL HAS DRAINS IN PLACE NOT CLEARED FOR DC YET AM LABS WANTS MORE MELATONIN Physical Exam Vital signs: Vital Signs 04/26/18 15:54 04/26/18 20:00 04/26/18 21:40 Temperature 99.1 F 98.6 F Pulse Rate 68 70 Respiratory Rate 18 17 20 Blood Pressure 147/79 H 169/85 H Pulse Oximetry 18 L 96 04/26/18 21:41 04/26/18 23:18 04/27/18 00:00 Temperature 98.2 F Pulse Rate 76 Respiratory Rate 20 20 17 Blood Pressure 152/75 H Pulse Oximetry 96 04/27/18 00:19 04/27/18 01:37 04/27/18 07:21 Temperature 98.0 F Pulse Rate 93 H Respiratory Rate 20 20 Blood Pressure 181/93 H Pulse Oximetry 96 04/27/18 08:00 04/27/18 12:00 Temperature 98.1 F 98.7 F Pulse Rate 61 69 Respiratory Rate 16 17 Blood Pressure 115/60 151/70 H Pulse Oximetry 98 96 Intake & Output 04/26/18 04/27/18 04/27/18 18:59 06:59 18:59 Intake Total 1720 / 1720 3020 / 3020 Output Total 3505 / 3505 50 / 50 Balance 1720 / 1720 -485 / -485 -50 / -50 Weight 115.5 kg Intake: IV 520 / 520 520 / 520 Vancomycin Inj 2,000 MG In NS 520 / 520 520 / 520 Inj 500 ML @ 250 mls/hr IV.SIG Q12H MARYURI Rx#:[id number] Oral 1200 / 1200 2500 / 2500 Output: Urine 3400 / 3400 Wound Drainage 105 / 105 50 / 50 # 1 Anterior Knee 50 / 50 20 / 20 # 2 Anterior Knee HONEY Drain 55 / 55 30 / 30 Other: # Voids 5 Date of Last Bowel Movement 04/24/18 # Bowel Movements 1 Narrative: GENERAL: NAD awake alert and oriented x3 talkative and cooperative SKIN: Warm and dry. HEAD: Atraumatic. Normocephalic. EYES: Pupils equal and round. No scleral icterus. No injection or drainage. EOMI ENT: No nasal bleeding or discharge. Mucous membranes pink and moist. Tongue midline NECK: Trachea midline. No JVD. Supple CARDIOVASCULAR: Regular rate and rhythm. S1-S2 no S3 or S4 RESPIRATORY: No accessory muscle use. Clear to auscultation. Breath sounds equal bilaterally. GASTROINTESTINAL: Abdomen soft, non-tender, nondistended. Hepatic and splenic margins not palpable. Obese MUSCULOSKELETAL: Extremities no clubbing, cyanosis, has edema on left knee area , erythema. Left lower extremity is dressed with [address] NEUROLOGICAL: Awake and alert. PSYCHIATRIC: Appropriate mood and affect; insight and judgment normal. Results - Labs CBC & Chem 7: 04/27/18 07:30 04/27/18 07:30 Laboratory Results - last 24 hr 04/26/18 04/27/18 04/27/18 10:40 07:30 07:30 WBC 7.2 RBC 3.86 L Hgb 12.0 L Hct 34.6 L MCV 89.7 MCH 31.2 MCHC 34.8 RDW 13.2 Plt Count 341 MPV 7.8 Neut % (Auto) 68.6 Lymph % (Auto) 17.1 Dodge % (Auto) 11.4 H Eos % (Auto) 2.2 Baso % (Auto) 0.7 Neut # (Auto) 4.9 Lymph # (Auto) 1.2 Dodge # (Auto) 0.8 Eos # (Auto) 0.2 Baso # (Auto) 0.1 WBC Differential . Differential Comment Auto diff final Sodium 145 Potassium 3.6 Chloride 108 H Carbon Dioxide 31.7 Anion Gap 5 BUN 4 L Creatinine 0.75 Estimated GFR Greater than 89 Random Glucose 101 Hemoglobin A1c 5.2 Calcium 8.2 L Phosphorus 3.0 Magnesium 2.2 Total Bilirubin 0.4 AST 20 ALT 38 Alkaline Phosphatase 56 Total Protein 6.0 L Albumin 2.6 L Microbiology 04/22/18 16:10 Blood - Peripheral Aerobic Blood Culture - Final No growth in 5 days 04/22/18 16:10 Blood - Peripheral Anaerobic Blood Culture - Final No growth in 5 days 04/22/18 16:15 Blood - Peripheral Aerobic Blood Culture - Final No growth in 5 days 04/22/18 16:15 Blood - Peripheral Anaerobic Blood Culture - Final No growth in 5 days 04/23/18 08:50 Wound - Thigh Gram Stain - Final 04/23/18 08:50 Wound - Thigh Wound Culture - Final S. aureus MRSA 04/23/18 08:50 Wound - Thigh Gram Stain - Final 04/23/18 08:50 Wound - Thigh Wound Culture - Final S. aureus MRSA 04/23/18 08:50 Wound - Thigh Gram Stain - Final 04/23/18 08:50 Wound - Thigh Wound Culture - Final S. aureus MRSA 04/23/18 08:50 Wound - Thigh Gram Stain - Final 04/23/18 08:50 Wound - Thigh Wound Culture - Final S. aureus MRSA 04/23/18 08:50 Tissue - Thigh Gram Stain - Final 04/23/18 08:50 Tissue - Thigh Wound Culture - Final S. aureus MRSA - Imaging ITS Impressions Femur MRI 04/22/18 00:00 CONCLUSION: 1. Extensive cellulitis of the right thigh especially medially without evidence for osteomyelitis or discrete abscess. Femur X-Ray 04/22/18 16:21 CONCLUSION: Negative examination Femur CT 04/22/18 16:57 CONCLUSION: 1. Impressive subcutaneous edema across the upper leg. The soft tissue edema does extend into the peripheral fibers of the vastus medialis muscle and the sartorius muscle without obvious drainable fluid collection or mass effect on the musculature. - Procedures s/p Left thigh incision and debridement of necrotizing fasciitis with 10 cm incision and 40 cm x 40 cm square surface of debridement of necrotic fat 04-25 status post irrigation and debridement of left thigh infection by Dr. Jones Assessment and Plan - Plan 62 years old man with Necrotizing Fasciitis left thigh Sepsis s/p Left thigh incision and debridement of necrotizing fasciitis with 10 cm incision and 40 cm x 40 cm square surface of debridement of necrotic fat Management per Orthopedic surgery Wound Vac management per protocol Abx per ID;currently on Vanc, FOR MRSA PT to treat and eval -Status post second surgery on left thigh incision and debridement of necrotic fasciitis-with irrigation and debridement of left thigh in fact Hypertension controlled at this time. -Continue home losartan -Monitor blood pressure readings -Adjust treatments as indicated Osteoarthritis-pain control as needed-is on chronic hydrocodone at home as well as chronic baclofen and chronic morphine extended release Chronic pain on chronic morphine continue Lyrica BPH on chronic Flomax DVT prophylaxis -SCDs on unaffected extremity ("nonoperative" leg) INSOMNIA- INCREASE MELATONIN ANTIBIOTICS PER ID ON VANCO NOW FOR MRSA Code Status: FULL CODE Discussed Condition With: RN AND PT AND CM Discharge Planning: Pending clearance by infectious disease and orthopedic surgery
[2018-04-27] MEDS: Melatonin 5 MG Tablet PO PRN (23:32)
[2018-04-28] MEDS: Morphine Sulfate 15 MG SR Tablet PO SCH ×3 (06:22→23:16)
[2018-04-28 07:26] LABS: Baso % (Auto) 0.4 % (0.0-2.0); Eos # (Auto) 0.2 th/mm3 (0.0-0.4); Eos % (Auto) 2.7 % (0.0-4.0); Hematocrit 36.8 % (39.0-51.0); Hemoglobin 12.8 gm/dL (13.0-17.0); Lymph # (Auto) 1.5 th/mm3 (1.0-4.8); Lymph % (Auto) 17.2 % (9.0-44.0); Mean Corpuscular HGB Conc 34.9 % (32.0-36.0); Mean Platelet Volume 7.5 fL (7.0-11.0); Mono % (Auto) 11.3 % (0.0-8.0); Neut # (Auto) 5.8 th/mm3 (1.8-7.7); Neut % (Auto) 68.4 % (16.0-70.0); Platelet Count 368 th/mm3 (150-450); Red Blood Count 4.14 mil/mm3 (4.50-5.90); Red Cell Distribution Width 12.9 % (11.6-17.2); White Blood Count 8.5 th/mm3 (4.0-11.0)
--- NOTE | 2018-04-28 07:54 | P.PNOP ---
Subjective Interval history: POd 3 s/p I&D left thigh doing well. states pain but controlled. nurse reports minimal drainage from drains Physical Exam Vital signs: Vital Signs 04/27/18 08:00 04/27/18 12:00 04/27/18 16:00 Temperature 98.1 F 98.7 F 97.4 F L Pulse Rate 61 69 74 Respiratory Rate 16 17 18 Blood Pressure 115/60 151/70 H 180/86 H Pulse Oximetry 98 96 96 04/27/18 20:00 04/28/18 00:00 04/28/18 04:00 Temperature 98.3 F 98.2 F 97.9 F Pulse Rate 68 66 58 L Respiratory Rate 17 17 17 Blood Pressure 178/84 H 180/89 H 176/82 H Pulse Oximetry 97 98 94 L 04/28/18 07:48 Temperature 98.3 F Pulse Rate 73 Respiratory Rate 18 Blood Pressure 192/93 H Pulse Oximetry 95 Intake & Output 04/27/18 04/28/18 04/28/18 18:59 06:59 18:59 Intake Total 1720 / 1720 1300 / 1300 Output Total 1295 / 1295 1525 / 1525 Balance 425 / 425 -225 / -225 Weight 115.1 kg Intake: IV 520 / 520 Vancomycin Inj 2,000 MG In NS 520 / 520 Inj 500 ML @ 250 mls/hr IV.SIG Q12H MARYURI Rx#:[id number] Oral 1200 / 1200 1300 / 1300 Output: Urine 1200 / 1200 1525 / 1525 Wound Drainage 95 / 95 # 1 Anterior Knee 40 / 40 # 2 Anterior Knee HONEY Drain 55 / 55 Other: # Bowel Movements 2 Narrative: LLE: dressing clean and dry. intact. removed and incisions visualized. healing well. minimal drainage. noticeable bruising over anterior thigh in between incisions Results - Labs CBC & Chem 7: 04/28/18 06:34 04/27/18 07:30 Laboratory Results - last 24 hr 04/27/18 04/27/18 04/28/18 07:30 07:30 06:34 WBC 7.2 8.5 RBC 3.86 L 4.14 L Hgb 12.0 L 12.8 L Hct 34.6 L 36.8 L MCV 89.7 89.0 MCH 31.2 31.0 MCHC 34.8 34.9 RDW 13.2 12.9 Plt Count 341 368 MPV 7.8 7.5 Neut % (Auto) 68.6 68.4 Lymph % (Auto) 17.1 17.2 [place] % (Auto) 11.4 H 11.3 H Eos % (Auto) 2.2 2.7 Baso % (Auto) 0.7 0.4 Neut # (Auto) 4.9 5.8 Lymph # (Auto) 1.2 1.5 [place] # (Auto) 0.8 1.0 H Eos # (Auto) 0.2 0.2 Baso # (Auto) 0.1 0.0 WBC Differential . . Differential Comment Auto diff final Auto diff final Sodium 145 Potassium 3.6 Chloride 108 H Carbon Dioxide 31.7 Anion Gap 5 BUN 4 L Creatinine 0.75 Estimated GFR Greater than 89 Random Glucose 101 Calcium 8.2 L Phosphorus 3.0 Magnesium 2.2 Total Bilirubin 0.4 AST 20 ALT 38 Alkaline Phosphatase 56 Total Protein 6.0 L Albumin 2.6 L Microbiology 04/22/18 16:10 Blood - Peripheral Aerobic Blood Culture - Final No growth in 5 days 04/22/18 16:10 Blood - Peripheral Anaerobic Blood Culture - Final No growth in 5 days 04/22/18 16:15 Blood - Peripheral Aerobic Blood Culture - Final No growth in 5 days 04/22/18 16:15 Blood - Peripheral Anaerobic Blood Culture - Final No growth in 5 days - Procedures s/p Left thigh incision and debridement of necrotizing fasciitis with 10 cm incision and 40 cm x 40 cm square surface of debridement of necrotic fat 10-22 status post irrigation and debridement of left thigh infection by Dr. Jones Assessment and Plan - Assessment and Plan 1) Left Thigh Abscess and Infection s/p I&D and wound closure - POD 3 -WBAT -daily dressing -maintain drains. will plan for removal tomorrow or wednesday. -Infectious Dz for Abx mgmt -Cx show MRSA -plan for DC home once Abx arranged and drains DC'd -f/u with Dr Chaparro in 2 weeks -patient currently receiving Hydrocodone 10 and morphine from pain mgmt. will defer pain meds to pain management
[2018-04-28] MEDS: Multivitamin/Minerals Therapeutic Tablet PO SCH ×2 (08:45→20:35)
[2018-04-28] MEDS ORDERED: Pharmacy Ordered Lab Info OTHER ONE (08:45)
[2018-04-28] MEDS: clonazePAM 1 MG Tablet PO SCH ×2 (08:45→20:35)
[2018-04-28] MEDS: Senna/Docusate Sodium 8.6/50 MG Tablet PO SCH ×2 (08:45→20:36)
[2018-04-28] MEDS: Baclofen 10 MG Tablet PO SCH (08:45)
[2018-04-28 09:39] LABS: Albumin 2.8 g/dL (3.4-5.0); Anion Gap 7 meq/L (5-15); Aspartate Aminotransferase 19 U/L (15-37); Blood Urea Nitrogen 5 mg/dL (7-18); Calcium 8.7 mg/dL (8.5-10.1); Carbon Dioxide 29.4 meq/L (21.0-32.0); Chloride 108 meq/L (98-107); Glomerular Filtration Rate Greater Than 89 mL/min (>89); Glucose,Random 121 mg/dL (74-106); Magnesium 2.2 mg/dL (1.5-2.5); Potassium 3.6 meq/L (3.5-5.1); Sodium 144 meq/L (136-145)
[2018-04-28 09:40] LABS: Alanine Aminotransferase 43 U/L (12-78); Phosphorus 2.7 mg/dL (2.5-4.9)
[2018-04-28 09:42] LABS: Alkaline Phosphatase 60 U/L (45-117); Total Protein 6.8 g/dL (6.4-8.2); Vancomycin,Trough 20.9 mcg/mL (5.0-10.0)
[2018-04-28] MEDS: Vancomycin Inj 2,000 MG in Sodium Chlor 0.9% Inj 500 ML IV.SIG SCH (09:52)
--- NOTE | 2018-04-28 12:36 | P.PNIM ---
Subjective Interval history: Chief Complaint: Left thigh discoloration, swelling, and pain History of Present Illness: Mr. Burris is a 62 year-old male with a history of arthritis, chronic back and neck pain, and hypertension who presented to the [facility] complaining of fever (up to 103 starting 04/20), left thigh pain with purplish discoloration of skin, and swelling since Wednesday 04/18. He was found to have sepsis from left thigh cellulitis with concern for necrotizing fasciitis and was transferred to [facility] upon the recommendation of the orthopedic surgeon for further evaluation and management under the hospitalist service. MRI upon arrival showed extensive cellulitis of right thigh with no osteomyelitis or discrete abscess. The patient reports that symptoms began with a possible spider bite to left thigh. He was placed on bactrim by his PCP but his symptoms continued to progress and worsen throughout the week despite treatment. His temperature was 102.9 on arrival. Denies any history of diabetes mellitus. 04-23 Follow up Necrotizing Fasciitis left thigh/sepsis 04/23/18-patient seen and examined; s/p Left thigh incision and debridement of necrotizing fasciitis with 10 cm incision and 40 cm x 40 cm square surface of debridement of necrotic fat 04-24 Follow up Necrotizing Fasciitis left thigh/sepsis 04/24: Status post Left thigh incision and debridement of necrotizing fasciitis with 10 cm incision and 40 cm x 40 cm square surface of debridement of necrotic fat. Orthopedic surgery following, POD#1, stable by specialist. seen in his bedroom no nausea, vomit or diarrhea, has erythema, vacuum in place. 04-25 HAD REPEAT SURGERY ON LEFT THIGH TODAY WITH ORTHOPEDIC SURGERY WILL CONTINUE ANTIBIOTICS PER ID Positive MRSA in wound continue on Vanco and Zosyn await sensitivities Has chronic pain Continue on pain medications A.m. labs PT and OT 04-26 ANTIBIOTICS PER ID ON VANCOMYCIN STILL SHAJI RN AND PT AND CM STILL HAVE DRAINS 04-27 CONTINUE ON ANTIBIOTICS ON VANCOMYCIN STILL STILL HAS DRAINS IN PLACE NOT CLEARED FOR DC YET AM LABS WANTS MORE MELATONIN 04-28 PATIENT STATES HE IS IN PAIN BUT DOES NOT APPEAR UNCOMFORTABLE IN THE CHAIR SHAJI RN AND PT AND CM AND FAMILY HAD DRESSING CHANGES TODAY AM LABS MONITOR PAIN CONTROL Physical Exam Vital signs: Vital Signs 04/27/18 16:00 04/27/18 20:00 04/27/18 22:00 Temperature 97.4 F L 98.3 F Pulse Rate 74 68 Respiratory Rate 18 17 Blood Pressure 180/86 H 178/84 H 168/73 H Pulse Oximetry 96 97 04/28/18 00:00 04/28/18 04:00 04/28/18 07:48 Temperature 98.2 F 97.9 F 98.3 F Pulse Rate 66 58 L 73 Respiratory Rate 17 17 18 Blood Pressure 180/89 H 176/82 H 192/93 H Pulse Oximetry 98 94 L 95 04/28/18 07:55 04/28/18 07:56 Temperature Pulse Rate Respiratory Rate 20 20 Blood Pressure Pulse Oximetry Intake & Output 04/27/18 04/28/18 04/28/18 18:59 06:59 18:59 Intake Total 1720 / 1720 1820 / 1820 Output Total 1295 / 1295 1525 / 1525 30 / 30 Balance 425 / 425 295 / 295 -30 / -30 Weight 115.1 kg Intake: IV 520 / 520 520 / 520 Vancomycin Inj 2,000 MG In NS 520 / 520 520 / 520 Inj 500 ML @ 250 mls/hr IV.SIG Q12H MARYURI Rx#:[id number] Oral 1200 / 1200 1300 / 1300 Output: Urine 1200 / 1200 1525 / 1525 Wound Drainage 95 / 95 30 / 30 # 1 Anterior Knee 40 / 40 # 2 Anterior Knee HONEY Drain 55 / 55 20 Other: # Bowel Movements 2 Narrative: GENERAL: NAD awake alert and oriented x3 talkative and cooperative SKIN: Warm and dry. HEAD: Atraumatic. Normocephalic. EYES: Pupils equal and round. No scleral icterus. No injection or drainage. EOMI ENT: No nasal bleeding or discharge. Mucous membranes pink and moist. Tongue midline NECK: Trachea midline. No JVD. Supple CARDIOVASCULAR: Regular rate and rhythm. S1-S2 no S3 or S4 RESPIRATORY: No accessory muscle use. Clear to auscultation. Breath sounds equal bilaterally. GASTROINTESTINAL: Abdomen soft, non-tender, nondistended. Hepatic and splenic margins not palpable. Obese MUSCULOSKELETAL: Extremities no clubbing, cyanosis, has edema on left knee area , erythema. Left lower extremity is dressed with [address] NEUROLOGICAL: Awake and alert. PSYCHIATRIC: Appropriate mood and affect; insight and judgment normal Results - Labs CBC & Chem 7: 04/28/18 06:34 04/28/18 08:50 Laboratory Results - last 24 hr 04/28/18 04/28/18 06:34 08:50 WBC 8.5 RBC 4.14 L Hgb 12.8 L Hct 36.8 L MCV 89.0 MCH 31.0 MCHC 34.9 RDW 12.9 Plt Count 368 MPV 7.5 Neut % (Auto) 68.4 Lymph % (Auto) 17.2 [place] % (Auto) 11.3 H Eos % (Auto) 2.7 Baso % (Auto) 0.4 Neut # (Auto) 5.8 Lymph # (Auto) 1.5 [place] # (Auto) 1.0 H Eos # (Auto) 0.2 Baso # (Auto) 0.0 WBC Differential . Differential Comment Auto diff final Sodium 144 Potassium 3.6 Chloride 108 H Carbon Dioxide 29.4 Anion Gap 7 BUN 5 L Creatinine 0.77 Estimated GFR Greater than 89 Random Glucose 121 H Calcium 8.7 Phosphorus 2.7 Magnesium 2.2 Total Bilirubin 0.4 AST 19 ALT 43 Alkaline Phosphatase 60 Total Protein 6.8 D Albumin 2.8 L Vancomycin Trough 20.9 H Microbiology 04/22/18 16:10 Blood - Peripheral Aerobic Blood Culture - Final No growth in 5 days 04/22/18 16:10 Blood - Peripheral Anaerobic Blood Culture - Final No growth in 5 days 04/22/18 16:15 Blood - Peripheral Aerobic Blood Culture - Final No growth in 5 days 04/22/18 16:15 Blood - Peripheral Anaerobic Blood Culture - Final No growth in 5 days - Imaging ITS Impressions Femur MRI 04/22/18 00:00 CONCLUSION: 1. Extensive cellulitis of the right thigh especially medially without evidence for osteomyelitis or discrete abscess. Femur X-Ray 04/22/18 16:21 CONCLUSION: Negative examination Femur CT 04/22/18 16:57 CONCLUSION: 1. Impressive subcutaneous edema across the upper leg. The soft tissue edema does extend into the peripheral fibers of the vastus medialis muscle and the sartorius muscle without obvious drainable fluid collection or mass effect on the musculature. - Procedures s/p Left thigh incision and debridement of necrotizing fasciitis with 10 cm incision and 40 cm x 40 cm square surface of debridement of necrotic fat 04-25 status post irrigation and debridement of left thigh infection by Dr. Jones Assessment and Plan - Plan 62 years old man with Necrotizing Fasciitis left thigh Sepsis MRSA s/p Left thigh incision and debridement of necrotizing fasciitis with 10 cm incision and 40 cm x 40 cm square surface of debridement of necrotic fat Management per Orthopedic surgery Wound Vac management per protocol Abx per ID;currently on Vanc, FOR MRSA PT to treat and eval -Status post second surgery on left thigh incision and debridement of necrotic fasciitis-with irrigation and debridement of left thigh in fact Hypertension controlled at this time. -Continue home losartan -Monitor blood pressure readings -Adjust treatments as indicated -PRN CATAPRES Osteoarthritis-pain control as needed-is on chronic hydrocodone at home as well as chronic baclofen and chronic morphine extended release Chronic pain on chronic morphine continue Lyrica BPH on chronic Flomax DVT prophylaxis -SCDs on unaffected extremity ("nonoperative" leg) INSOMNIA- INCREASE MELATONIN ANTIBIOTICS PER ID ON VANCO NOW FOR MRSA Code Status: FULL CODE Discussed Condition With: RN AND PT AND CM AND FAMILY Discharge Planning: Pending clearance by infectious disease and orthopedic surgery
--- NOTE | 2018-04-28 14:06 | P.PNID ---
Subjective Remarks: Patient is a 62-year-old male, presented to the hospital for further evaluation of progressive swelling redness and discoloration on his left thigh. Patient noted initially what looks like a puncture wound on his medial left thigh. He went to his primary care doctor, and was given a prescription for Bactrim. Patient stated that there was no redness. It has a brownish color to it. Over the next day, he developed increasing redness, swelling, and there was an area that looks purplish in color. He was also getting painful. He was also having fever and chills, with temperature documented to around 102. He has not had any sore throat or any respiratory complaint. No nausea or vomiting or any diarrhea. He denies any urinary complaints. He does not remember having any insect bite, or any trauma to his left lower extremity. Patient was seen by orthopedic, and there was some concern about progressive infection, and he went to surgery today. He apparently had findings of necrotizing fasciitis, and there was significant purulence seen. He has a wound VAC in place. His white count is elevated. He has been febrile. He is currently on Zosyn and vancomycin. Infectious disease consultation has been requested to evaluate the patient. Notes reviewed Temps ok WBC normal C/O pain Last surgery 04/25, closure done [address], still draining a lot First OR C/S MRSA No new C/S sent from last surgery No rash or itching Antibiotics: Vancomycin Lines: PIV Past Medical History: Hypertension Arthritis Back and neck OR Allergies/Adverse Reactions: Allergies No Known Allergies Allergy (Verified 04/22/18 15:52) Objective Vital Signs 04/27/18 16:00 04/27/18 20:00 04/27/18 22:00 Temperature 97.4 F L 98.3 F Pulse Rate 74 68 Respiratory Rate 18 17 Blood Pressure 180/86 H 178/84 H 168/73 H Pulse Oximetry 96 97 04/28/18 00:00 04/28/18 04:00 04/28/18 07:48 Temperature 98.2 F 97.9 F 98.3 F Pulse Rate 66 58 L 73 Respiratory Rate 17 17 18 Blood Pressure 180/89 H 176/82 H 192/93 H Pulse Oximetry 98 94 L 95 04/28/18 07:55 04/28/18 07:56 04/28/18 12:00 Temperature 97.9 F Pulse Rate 71 Respiratory Rate 20 20 19 Blood Pressure 163/88 H Pulse Oximetry 95 04/28/18 13:32 Temperature Pulse Rate Respiratory Rate 18 Blood Pressure Pulse Oximetry Intake & Output 04/27/18 04/28/18 04/28/18 18:59 06:59 18:59 Intake Total 1720 / 1720 1820 / 1820 520 / 520 Output Total 1295 / 1295 1525 / 1525 30 / 30 Balance 425 / 425 295 / 295 490 / 490 Weight 115.1 kg Intake: IV 520 / 520 520 / 520 520 / 520 Vancomycin Inj 2,000 MG In NS 520 / 520 520 / 520 520 / 520 Inj 500 ML @ 250 mls/hr IV.SIG Q12H MARYURI Rx#:[id number] Oral 1200 / 1200 1300 / 1300 Output: Urine 1200 / 1200 1525 / 1525 Wound Drainage 95 / 95 30 / 30 # 1 Anterior Knee 40 / 40 10 10 # 2 Anterior Knee HONEY Drain 55 / 55 20 Other: # Bowel Movements 2 04/22/18 16:10 Blood - Peripheral Aerobic Blood Culture - Final No growth in 5 days 04/22/18 16:10 Blood - Peripheral Anaerobic Blood Culture - Final No growth in 5 days 04/22/18 16:15 Blood - Peripheral Aerobic Blood Culture - Final No growth in 5 days 04/22/18 16:15 Blood - Peripheral Anaerobic Blood Culture - Final No growth in 5 days 04/23/18 08:50 Wound - Thigh Gram Stain - Final 04/23/18 08:50 Wound - Thigh Wound Culture - Final S. aureus MRSA 04/23/18 08:50 Wound - Thigh Gram Stain - Final 04/23/18 08:50 Wound - Thigh Wound Culture - Final S. aureus MRSA 04/23/18 08:50 Wound - Thigh Gram Stain - Final 04/23/18 08:50 Wound - Thigh Wound Culture - Final S. aureus MRSA 04/23/18 08:50 Wound - Thigh Gram Stain - Final 04/23/18 08:50 Wound - Thigh Wound Culture - Final S. aureus MRSA 04/23/18 08:50 Tissue - Thigh Gram Stain - Final 04/23/18 08:50 Tissue - Thigh Wound Culture - Final S. aureus MRSA 04/23/18 08:50 Wound - Thigh Acid Fast Bacilli Smear - Final No acid fast bacilli seen 04/23/18 08:50 Wound - Thigh Mycobacterial Culture - Pending 04/23/18 08:50 Wound - Thigh Acid Fast Bacilli Smear - Final No acid fast bacilli seen 04/23/18 08:50 Wound - Thigh Mycobacterial Culture - Pending 04/23/18 08:50 Wound - Thigh Acid Fast Bacilli Smear - Final No acid fast bacilli seen 04/23/18 08:50 Wound - Thigh Mycobacterial Culture - Pending 04/23/18 08:50 Wound - Thigh Acid Fast Bacilli Smear - Final No acid fast bacilli seen 04/23/18 08:50 Wound - Thigh Mycobacterial Culture - Pending 04/23/18 08:50 Tissue - Thigh Acid Fast Bacilli Smear - Final No acid fast bacilli seen 04/23/18 08:50 Tissue - Thigh Mycobacterial Culture - Pending Lab - Hematology Results 04/27/18 04/28/18 07:30 06:34 WBC 7.2 8.5 RBC 3.86 L 4.14 L Hgb 12.0 L 12.8 L Hct 34.6 L 36.8 L MCV 89.7 89.0 MCH 31.2 31.0 MCHC 34.8 34.9 RDW 13.2 12.9 Plt Count 341 368 MPV 7.8 7.5 Neut % (Auto) 68.6 68.4 Lymph % (Auto) 17.1 17.2 [place] % (Auto) 11.4 H 11.3 H Eos % (Auto) 2.2 2.7 Baso % (Auto) 0.7 0.4 Neut # (Auto) 4.9 5.8 Lymph # (Auto) 1.2 1.5 [place] # (Auto) 0.8 1.0 H Eos # (Auto) 0.2 0.2 Baso # (Auto) 0.1 0.0 WBC Differential . . Differential Comment Auto diff final Auto diff final Lab - Chemistry Results 04/26/18 04/27/18 04/28/18 10:40 07:30 08:50 Sodium 145 144 Potassium 3.6 3.6 Chloride 108 H 108 H Carbon Dioxide 31.7 29.4 Anion Gap 5 7 BUN 4 L 5 L Creatinine 0.75 0.77 Estimated GFR Greater than 89 Greater than 89 Random Glucose 101 121 H Hemoglobin A1c 5.2 Calcium 8.2 L 8.7 Phosphorus 3.0 2.7 Magnesium 2.2 2.2 Total Bilirubin 0.4 0.4 AST 20 19 ALT 38 43 Alkaline Phosphatase 56 60 Total Protein 6.0 L 6.8 D Albumin 2.6 L 2.8 L Imaging: ITS Impressions Femur MRI 04/22/18 00:00 CONCLUSION: 1. Extensive cellulitis of the right thigh especially medially without evidence for osteomyelitis or discrete abscess. Femur X-Ray 04/22/18 16:21 CONCLUSION: Negative examination Femur CT 04/22/18 16:57 CONCLUSION: 1. Impressive subcutaneous edema across the upper leg. The soft tissue edema does extend into the peripheral fibers of the vastus medialis muscle and the sartorius muscle without obvious drainable fluid collection or mass effect on the musculature. Physical Exam: GENERAL: awake and alert, NAD SKIN: Warm and dry. No generalized rash. HEAD: Atraumatic. Normocephalic. No temporal wasting, or tenderness. EYES: [place] conjunctiva. No petechia or hemorrhage. No scleral icterus. No injection or drainage. EARS, NOSE AND THROAT: Nose without bleeding or purulent nasal discharge. Mucous membranes pink and moist. No oral lesions noted. NECK: Trachea midline. Supple and not tender, no meningeal signs CARDIOVASCULAR: Regular rate and rhythm. No murmurs, rubs or gallops heard RESPIRATORY: Clear to auscultation. Breath sounds equal bilaterally. No rales , wheezing or rhonchi ABDOMEN: Soft, non-tender, nondistended. Bowel sounds present and normoactive. No guarding. No rebound. No organomegaly. EXTREMITIES: No clubbing, cyanosis. Has dry dressing over his L knee/thigh, [address] with sanguineous fluid, less swelling, ecchymoses improving, incision dry. No calf tenderness. NEUROLOGICAL: Grossly within normal limits. PSYCHIATRIC: calm and cooperative. LINE: No evidence of infection Assessment and Plan - Plan Impression Necrotizing fasciitis L thigh - prelim C/S MRSA Sepsis due to above Fevers, better leukocytosis Recommendation Continue vanco Monitor progress Will need IV Abx when D/C from hospital - at least 4 weeks after he gets D/C from hospital PICC once drain removed Explained plan to the patient
[2018-04-28] MEDS: Vancomycin Inj 1,750 MG in Sodium Chlor 0.9% Inj 500 ML IV.SIG SCH (23:16)
[2018-04-28] MEDS: Melatonin 5 MG Tablet PO PRN (23:16)
[2018-04-29] MEDS: Morphine Sulfate 15 MG SR Tablet PO SCH ×3 (06:41→23:34)
[2018-04-29 07:45] LABS: Baso # (Auto) 0.1 th/mm3 (0.0-0.2); Baso % (Auto) 0.7 % (0.0-2.0); Eos # (Auto) 0.2 th/mm3 (0.0-0.4); Eos % (Auto) 2.4 % (0.0-4.0); Hematocrit 37.3 % (39.0-51.0); Hemoglobin 12.8 gm/dL (13.0-17.0); Lymph # (Auto) 1.4 th/mm3 (1.0-4.8); Lymph % (Auto) 15.9 % (9.0-44.0); Mean Corpuscular HGB Conc 34.4 % (32.0-36.0); Mean Corpuscular Volume 90.1 fL (80.0-100.0); Mean Platelet Volume 7.4 fL (7.0-11.0); Mono % (Auto) 10.6 % (0.0-8.0); Neut # (Auto) 6.4 th/mm3 (1.8-7.7); Neut % (Auto) 70.4 % (16.0-70.0); Platelet Count 396 th/mm3 (150-450); Red Blood Count 4.14 mil/mm3 (4.50-5.90); Red Cell Distribution Width 13.2 % (11.6-17.2); White Blood Count 9.1 th/mm3 (4.0-11.0)
[2018-04-29 08:11] LABS: Alanine Aminotransferase 46 U/L (12-78); Albumin 2.9 g/dL (3.4-5.0); Anion Gap 9 meq/L (5-15); Aspartate Aminotransferase 25 U/L (15-37); Blood Urea Nitrogen 6 mg/dL (7-18); Calcium 9.4 mg/dL (8.5-10.1); Carbon Dioxide 30.5 meq/L (21.0-32.0); Chloride 105 meq/L (98-107); Glomerular Filtration Rate Greater Than 89 mL/min (>89); Glucose,Random 91 mg/dL (74-106); Magnesium 2.5 mg/dL (1.5-2.5); Potassium 3.6 meq/L (3.5-5.1); Sodium 144 meq/L (136-145)
[2018-04-29 08:14] LABS: Alkaline Phosphatase 58 U/L (45-117); Total Protein 6.7 g/dL (6.4-8.2)
[2018-04-29] MEDS: Multivitamin/Minerals Therapeutic Tablet PO SCH ×2 (09:17→20:12)
[2018-04-29] MEDS: clonazePAM 1 MG Tablet PO SCH ×2 (09:17→20:12)
[2018-04-29] MEDS: Baclofen 10 MG Tablet PO SCH (09:17)
[2018-04-29] MEDS: Senna/Docusate Sodium 8.6/50 MG Tablet PO SCH ×2 (09:18→20:12)
[2018-04-29] MEDS: Vancomycin Inj 1,750 MG in Sodium Chlor 0.9% Inj 500 ML IV.SIG SCH ×2 (13:10→23:35)
--- NOTE | 2018-04-29 13:16 | P.PNIM ---
Subjective Interval history: Chief Complaint: Left thigh discoloration, swelling, and pain History of Present Illness: Mr. Burris is a 62 year-old male with a history of arthritis, chronic back and neck pain, and hypertension who presented to the [place] ER complaining of fever (up to 103 starting 04/20), left thigh pain with purplish discoloration of skin, and swelling since Wednesday 04/18. He was found to have sepsis from left thigh cellulitis with concern for necrotizing fasciitis and was transferred to [facility] upon the recommendation of the orthopedic surgeon for further evaluation and management under the hospitalist service. MRI upon arrival showed extensive cellulitis of right thigh with no osteomyelitis or discrete abscess. The patient reports that symptoms began with a possible spider bite to left thigh. He was placed on bactrim by his PCP but his symptoms continued to progress and worsen throughout the week despite treatment. His temperature was 102.9 on arrival. Denies any history of diabetes mellitus. 04-23 Follow up Necrotizing Fasciitis left thigh/sepsis 04/23/18-patient seen and examined; s/p Left thigh incision and debridement of necrotizing fasciitis with 10 cm incision and 40 cm x 40 cm square surface of debridement of necrotic fat 10- Follow up Necrotizing Fasciitis left thigh/sepsis 04/24: Status post Left thigh incision and debridement of necrotizing fasciitis with 10 cm incision and 40 cm x 40 cm square surface of debridement of necrotic fat. Orthopedic surgery following, POD#1, stable by specialist. seen in his bedroom no nausea, vomit or diarrhea, has erythema, vacuum in place. 10 HAD REPEAT SURGERY ON LEFT THIGH TODAY WITH ORTHOPEDIC SURGERY WILL CONTINUE ANTIBIOTICS PER ID Positive MRSA in wound continue on Vanco and Zosyn await sensitivities Has chronic pain Continue on pain medications A.m. labs PT and OT 10- ANTIBIOTICS PER ID ON VANCOMYCIN STILL SHAJI RN AND PT AND CM STILL HAVE DRAINS 10 CONTINUE ON ANTIBIOTICS ON VANCOMYCIN STILL STILL HAS DRAINS IN PLACE NOT CLEARED FOR DC YET AM LABS WANTS MORE MELATONIN 10 PATIENT STATES HE IS IN PAIN BUT DOES NOT APPEAR UNCOMFORTABLE IN THE CHAIR SHAJI RN AND PT AND CM AND FAMILY HAD DRESSING CHANGES TODAY AM LABS MONITOR PAIN CONTROL - STATES PAIN IS BETTER CONTROLLED VERY CONCERNED ABOUT PAIN MEDICATIONS BLOOD PRESSURE IS BETTER AM LABS INCREASE ACTIVITY Physical Exam Vital signs: Vital Signs 04/28/18 13:32 04/28/18 16:00 04/28/18 20:00 Temperature 98.5 F 98.6 F Pulse Rate 71 79 Respiratory Rate 18 18 18 Blood Pressure 190/92 H 188/92 H Pulse Oximetry 96 96 04/29/18 00:00 04/29/18 08:00 04/29/18 12:00 Temperature 97.3 F L 98.0 F 97.2 F L Pulse Rate 83 63 72 Respiratory Rate 18 16 16 Blood Pressure 179/91 H 176/84 H 179/86 H Pulse Oximetry 97 98 97 Intake & Output 04/28/18 04/29/18 04/29/18 18:59 06:59 18:59 Intake Total 1460 / 1460 517.5 / 517.5 Output Total 2275 / 2275 4140 / 4140 Balance -815 / -815 -3622.5 / -3622.5 Weight 111.8 kg Intake: IV 520 / 520 517.5 / 517.5 Vancomycin Inj 1,750 MG In NS 520 / 520 517.5 / 517.5 Inj 500 ML @ 250 mls/hr IV.SIG Q12H MARYURI Rx#:[id number] Oral 940 / 940 Output: Urine 2200 / 2200 4100 / 4100 Wound Drainage 75 / 75 40 / 40 # 1 Anterior Knee 35 / 35 20 / 20 # 2 Anterior Knee HONEY Drain 40 / 40 20 / 20 Other: Date of Last Bowel Movement 04/28/18 Narrative: GENERAL: NAD awake alert and oriented x3 talkative and cooperative SKIN: Warm and dry. HEAD: Atraumatic. Normocephalic. EYES: Pupils equal and round. No scleral icterus. No injection or drainage. EOMI ENT: No nasal bleeding or discharge. Mucous membranes pink and moist. Tongue midline NECK: Trachea midline. No JVD. Supple CARDIOVASCULAR: Regular rate and rhythm. S1-S2 no S3 or S4 RESPIRATORY: No accessory muscle use. Clear to auscultation. Breath sounds equal bilaterally. GASTROINTESTINAL: Abdomen soft, non-tender, nondistended. Hepatic and splenic margins not palpable. Obese MUSCULOSKELETAL: Extremities no clubbing, cyanosis, has edema on left knee area , erythema. Left lower extremity is dressed with [address] NEUROLOGICAL: Awake and alert. PSYCHIATRIC: Appropriate mood and affect; insight and judgment normal Results - Labs CBC & Chem 7: 04/29/18 05:23 04/29/18 05:23 Laboratory Results - last 24 hr 04/29/18 04/29/18 05:23 05:23 WBC 9.1 RBC 4.14 L Hgb 12.8 L Hct 37.3 L MCV 90.1 MCH 31.0 MCHC 34.4 RDW 13.2 Plt Count 396 MPV 7.4 Neut % (Auto) 70.4 H Lymph % (Auto) 15.9 [place] % (Auto) 10.6 H Eos % (Auto) 2.4 Baso % (Auto) 0.7 Neut # (Auto) 6.4 Lymph # (Auto) 1.4 [place] # (Auto) 1.0 H Eos # (Auto) 0.2 Baso # (Auto) 0.1 WBC Differential . Differential Comment Auto diff final Sodium 144 Potassium 3.6 Chloride 105 Carbon Dioxide 30.5 Anion Gap 9 BUN 6 L Creatinine 0.71 Estimated GFR Greater than 89 Random Glucose 91 Calcium 9.4 Phosphorus 3.0 Magnesium 2.5 Total Bilirubin 0.4 AST 25 ALT 46 Alkaline Phosphatase 58 Total Protein 6.7 Albumin 2.9 L - Imaging ITS Impressions Femur MRI 04/22/18 00:00 CONCLUSION: 1. Extensive cellulitis of the right thigh especially medially without evidence for osteomyelitis or discrete abscess. Femur X-Ray 04/22/18 16:21 CONCLUSION: Negative examination Femur CT 04/22/18 16:57 CONCLUSION: 1. Impressive subcutaneous edema across the upper leg. The soft tissue edema does extend into the peripheral fibers of the vastus medialis muscle and the sartorius muscle without obvious drainable fluid collection or mass effect on the musculature. - Procedures s/p Left thigh incision and debridement of necrotizing fasciitis with 10 cm incision and 40 cm x 40 cm square surface of debridement of necrotic fat 04-25 status post irrigation and debridement of left thigh infection by Dr. Jones Assessment and Plan - Plan 62 years old man with Necrotizing Fasciitis left thigh Sepsis MRSA s/p Left thigh incision and debridement of necrotizing fasciitis with 10 cm incision and 40 cm x 40 cm square surface of debridement of necrotic fat Management per Orthopedic surgery Wound Vac management per protocol Abx per ID;currently on Vanc, FOR MRSA PT to treat and eval -Status post second surgery on left thigh incision and debridement of necrotic fasciitis-with irrigation and debridement of left thigh in fact Hypertension controlled at this time. -Continue home losartan -Monitor blood pressure readings -Adjust treatments as indicated -PRN CATAPRES Osteoarthritis-pain control as needed-is on chronic hydrocodone at home as well as chronic baclofen and chronic morphine extended release Chronic pain on chronic morphine continue Lyrica BPH on chronic Flomax DVT prophylaxis -SCDs on unaffected extremity ("nonoperative" leg) INSOMNIA- INCREASE MELATONIN ANTIBIOTICS PER ID ON VANCO NOW FOR MRSA- STILL HAS DRAIN IN PLACE Code Status: FULL CODE Discussed Condition With: RN AND PT AND CM AND FAMILY Discharge Planning: Pending clearance by infectious disease and orthopedic surgery
--- NOTE | 2018-04-29 13:51 | P.PNID ---
Subjective Remarks: Patient is a 62-year-old male, presented to the hospital for further evaluation of progressive swelling redness and discoloration on his left thigh. Patient noted initially what looks like a puncture wound on his medial left thigh. He went to his primary care doctor, and was given a prescription for Bactrim. Patient stated that there was no redness. It has a brownish color to it. Over the next day, he developed increasing redness, swelling, and there was an area that looks purplish in color. He was also getting painful. He was also having fever and chills, with temperature documented to around 102. He has not had any sore throat or any respiratory complaint. No nausea or vomiting or any diarrhea. He denies any urinary complaints. He does not remember having any insect bite, or any trauma to his left lower extremity. Patient was seen by orthopedic, and there was some concern about progressive infection, and he went to surgery today. He apparently had findings of necrotizing fasciitis, and there was significant purulence seen. He has a wound VAC in place. His white count is elevated. He has been febrile. He is currently on Zosyn and vancomycin. Infectious disease consultation has been requested to evaluate the patient. Notes reviewed Temps ok WBC normal Pain better controlled with meds Last surgery 04/25, closure done [address], still draining a lot First OR C/S MRSA No new C/S sent from last surgery No rash or itching ESR 11 CRP 16.5 Antibiotics: Vancomycin Lines: PIV Past Medical History: Hypertension Arthritis Back and neck OR Allergies/Adverse Reactions: Allergies No Known Allergies Allergy (Verified 04/22/18 15:52) Objective Vital Signs 04/28/18 16:00 04/28/18 20:00 04/29/18 00:00 Temperature 98.5 F 98.6 F 97.3 F L Pulse Rate 71 79 83 Respiratory Rate 18 18 18 Blood Pressure 190/92 H 188/92 H 179/91 H Pulse Oximetry 96 96 97 04/29/18 08:00 04/29/18 12:00 Temperature 98.0 F 97.2 F L Pulse Rate 63 72 Respiratory Rate 16 16 Blood Pressure 176/84 H 179/86 H Pulse Oximetry 98 97 Intake & Output 04/28/18 04/29/18 04/29/18 18:59 06:59 18:59 Intake Total 1460 / 1460 517.5 / 517.5 Output Total 2275 / 2275 4140 / 4140 Balance -815 / -815 -3622.5 / -3622.5 Weight 111.8 kg Intake: IV 520 / 520 517.5 / 517.5 Vancomycin Inj 1,750 MG In NS 520 / 520 517.5 / 517.5 Inj 500 ML @ 250 mls/hr IV.SIG Q12H MARYURI Rx#:[id number] Oral 940 / 940 Output: Urine 2200 / 2200 4100 / 4100 Wound Drainage 75 / 75 40 / 40 # 1 Anterior Knee 35 / 35 20 / 20 # 2 Anterior Knee HONEY Drain 40 / 40 Other: Date of Last Bowel Movement 04/28/18 04/22/18 16:10 Blood - Peripheral Aerobic Blood Culture - Final No growth in 5 days 04/22/18 16:10 Blood - Peripheral Anaerobic Blood Culture - Final No growth in 5 days 04/22/18 16:15 Blood - Peripheral Aerobic Blood Culture - Final No growth in 5 days 04/22/18 16:15 Blood - Peripheral Anaerobic Blood Culture - Final No growth in 5 days 04/23/18 08:50 Wound - Thigh Gram Stain - Final 04/23/18 08:50 Wound - Thigh Wound Culture - Final S. aureus MRSA 04/23/18 08:50 Wound - Thigh Gram Stain - Final 04/23/18 08:50 Wound - Thigh Wound Culture - Final S. aureus MRSA 04/23/18 08:50 Wound - Thigh Gram Stain - Final 04/23/18 08:50 Wound - Thigh Wound Culture - Final S. aureus MRSA 04/23/18 08:50 Wound - Thigh Gram Stain - Final 04/23/18 08:50 Wound - Thigh Wound Culture - Final S. aureus MRSA 04/23/18 08:50 Tissue - Thigh Gram Stain - Final 04/23/18 08:50 Tissue - Thigh Wound Culture - Final S. aureus MRSA Lab - Hematology Results 04/28/18 04/29/18 06:34 05:23 WBC 8.5 9.1 RBC 4.14 L 4.14 L Hgb 12.8 L 12.8 L Hct 36.8 L 37.3 L MCV 89.0 90.1 MCH 31.0 31.0 MCHC 34.9 34.4 RDW 12.9 13.2 Plt Count 368 396 MPV 7.5 7.4 Neut % (Auto) 68.4 70.4 H Lymph % (Auto) 17.2 15.9 [place] % (Auto) 11.3 H 10.6 H Eos % (Auto) 2.7 2.4 Baso % (Auto) 0.4 0.7 Neut # (Auto) 5.8 6.4 Lymph # (Auto) 1.5 1.4 [place] # (Auto) 1.0 H 1.0 H Eos # (Auto) 0.2 0.2 Baso # (Auto) 0.0 0.1 WBC Differential . . Differential Comment Auto diff final Auto diff final Lab - Chemistry Results 04/28/18 04/29/18 08:50 05:23 Sodium 144 144 Potassium 3.6 3.6 Chloride 108 H 105 Carbon Dioxide 29.4 30.5 Anion Gap 7 9 BUN 5 L 6 L Creatinine 0.77 0.71 Estimated GFR Greater than 89 Greater than 89 Random Glucose 121 H 91 Calcium 8.7 9.4 Phosphorus 2.7 3.0 Magnesium 2.2 2.5 Total Bilirubin 0.4 0.4 AST 19 25 ALT 43 46 Alkaline Phosphatase 60 58 Total Protein 6.8 D 6.7 Albumin 2.8 L 2.9 L Imaging: ITS Impressions Femur MRI 04/22/18 00:00 CONCLUSION: 1. Extensive cellulitis of the right thigh especially medially without evidence for osteomyelitis or discrete abscess. Femur X-Ray 04/22/18 16:21 CONCLUSION: Negative examination Femur CT 04/22/18 16:57 CONCLUSION: 1. Impressive subcutaneous edema across the upper leg. The soft tissue edema does extend into the peripheral fibers of the vastus medialis muscle and the sartorius muscle without obvious drainable fluid collection or mass effect on the musculature. Physical Exam: GENERAL: awake and alert, NAD SKIN: Warm and dry. No generalized rash. HEAD: Atraumatic. Normocephalic. No temporal wasting, or tenderness. EYES: [place] conjunctiva. No petechia or hemorrhage. No scleral icterus. No injection or drainage. EARS, NOSE AND THROAT: Nose without bleeding or purulent nasal discharge. Mucous membranes pink and moist. No oral lesions noted. NECK: Trachea midline. Supple and not tender, no meningeal signs CARDIOVASCULAR: Regular rate and rhythm. No murmurs, rubs or gallops heard RESPIRATORY: Clear to auscultation. Breath sounds equal bilaterally. No rales , wheezing or rhonchi ABDOMEN: Soft, non-tender, nondistended. Bowel sounds present and normoactive. No guarding. No rebound. No organomegaly. EXTREMITIES: No clubbing, cyanosis. Has dry dressing over his L knee/thigh, [address] with sanguineous fluid, less swelling, ecchymoses improving, incision dry. No calf tenderness. NEUROLOGICAL: Grossly within normal limits. PSYCHIATRIC: calm and cooperative. LINE: No evidence of infection Assessment and Plan - Plan Impression Necrotizing fasciitis L thigh - prelim C/S MRSA Sepsis due to above Fevers, better leukocytosis, resolved Recommendation Continue vanco Monitor progress Will need IV Abx when D/C from hospital - at least 4 weeks after he gets D/C from hospital PICC once drain removed
[2018-04-30] MEDS: Melatonin 5 MG Tablet PO PRN (01:01)
[2018-04-30 06:31] LABS: Baso # (Auto) 0.1 th/mm3 (0.0-0.2); Baso % (Auto) 0.6 % (0.0-2.0); Eos # (Auto) 0.3 th/mm3 (0.0-0.4); Eos % (Auto) 2.7 % (0.0-4.0); Hematocrit 36.6 % (39.0-51.0); Hemoglobin 12.9 gm/dL (13.0-17.0); Lymph # (Auto) 1.4 th/mm3 (1.0-4.8); Lymph % (Auto) 14.4 % (9.0-44.0); Mean Corpuscular HGB Conc 35.1 % (32.0-36.0); Mean Corpuscular Hemoglobin 31.2 pg (27.0-34.0); Mean Corpuscular Volume 88.8 fL (80.0-100.0); Mean Platelet Volume 7.4 fL (7.0-11.0); Mono # (Auto) 1.2 th/mm3 (0.0-0.9); Mono % (Auto) 12.1 % (0.0-8.0); Neut # (Auto) 6.8 th/mm3 (1.8-7.7); Neut % (Auto) 70.2 % (16.0-70.0); Platelet Count 374 th/mm3 (150-450); Red Blood Count 4.12 mil/mm3 (4.50-5.90); Red Cell Distribution Width 13.2 % (11.6-17.2); White Blood Count 9.8 th/mm3 (4.0-11.0)
[2018-04-30] MEDS: Morphine Sulfate 15 MG SR Tablet PO SCH ×3 (06:37→23:05)
[2018-04-30] MEDS: Senna/Docusate Sodium 8.6/50 MG Tablet PO SCH ×3 (08:47→21:19)
[2018-04-30] MEDS: Baclofen 10 MG Tablet PO SCH (08:47)
[2018-04-30] MEDS: Multivitamin/Minerals Therapeutic Tablet PO SCH ×2 (08:47→21:19)
[2018-04-30] MEDS: clonazePAM 1 MG Tablet PO SCH ×2 (08:48→21:19)
--- NOTE | 2018-04-30 11:10 | P.PNIM ---
Subjective Interval history: Chief Complaint: Left thigh discoloration, swelling, and pain History of Present Illness: Mr. Burris is a 62 year-old male with a history of arthritis, chronic back and neck pain, and hypertension who presented to the [place] ER complaining of fever (up to 103 starting 04/20), left thigh pain with purplish discoloration of skin, and swelling since Wednesday 04/18. He was found to have sepsis from left thigh cellulitis with concern for necrotizing fasciitis and was transferred to [facility] upon the recommendation of the orthopedic surgeon for further evaluation and management under the hospitalist service. MRI upon arrival showed extensive cellulitis of right thigh with no osteomyelitis or discrete abscess. The patient reports that symptoms began with a possible spider bite to left thigh. He was placed on bactrim by his PCP but his symptoms continued to progress and worsen throughout the week despite treatment. His temperature was 102.9 on arrival. Denies any history of diabetes mellitus. 04-23 Follow up Necrotizing Fasciitis left thigh/sepsis 04/23/18-patient seen and examined; s/p Left thigh incision and debridement of necrotizing fasciitis with 10 cm incision and 40 cm x 40 cm square surface of debridement of necrotic fat 10- Follow up Necrotizing Fasciitis left thigh/sepsis 04/24: Status post Left thigh incision and debridement of necrotizing fasciitis with 10 cm incision and 40 cm x 40 cm square surface of debridement of necrotic fat. Orthopedic surgery following, POD#1, stable by specialist. seen in his bedroom no nausea, vomit or diarrhea, has erythema, vacuum in place. 10 HAD REPEAT SURGERY ON LEFT THIGH TODAY WITH ORTHOPEDIC SURGERY WILL CONTINUE ANTIBIOTICS PER ID Positive MRSA in wound continue on Vanco and Zosyn await sensitivities Has chronic pain Continue on pain medications A.m. labs PT and OT 10- ANTIBIOTICS PER ID ON VANCOMYCIN STILL SHAJI RN AND PT AND CM STILL HAVE DRAINS 10 CONTINUE ON ANTIBIOTICS ON VANCOMYCIN STILL STILL HAS DRAINS IN PLACE NOT CLEARED FOR DC YET AM LABS WANTS MORE MELATONIN 10- PATIENT STATES HE IS IN PAIN BUT DOES NOT APPEAR UNCOMFORTABLE IN THE CHAIR SHAJI RN AND PT AND CM AND FAMILY HAD DRESSING CHANGES TODAY AM LABS MONITOR PAIN CONTROL - STATES PAIN IS BETTER CONTROLLED VERY CONCERNED ABOUT PAIN MEDICATIONS BLOOD PRESSURE IS BETTER AM LABS INCREASE ACTIVITY 04-30 STILL COMPLAINS OF LOTS OF PAIN VERY CONCERNED ABOUT PAIN MEDS STILL DW RN AND PT AND CM INCREASE ACTIVITY Physical Exam Vital signs: Vital Signs 04/29/18 12:00 04/29/18 16:00 04/29/18 20:00 Temperature 97.2 F L 97.8 F 97.6 F Pulse Rate 72 71 78 Respiratory Rate 16 18 20 Blood Pressure 179/86 H 156/75 H 175/86 H Pulse Oximetry 97 95 96 04/30/18 00:00 04/30/18 08:00 Temperature 98.0 F 98.5 F Pulse Rate 63 69 Respiratory Rate 17 18 Blood Pressure 172/65 H 170/81 H Pulse Oximetry 95 96 Intake & Output 04/29/18 04/30/18 04/30/18 18:59 06:59 18:59 Intake Total 2717.5 / 2717.5 1600 / 1600 Output Total 2410 / 2410 3200 / 3200 1730 / 1730 Balance 307.5 / 307.5 -1600 / -1600 -1730 / -1730 Weight 111.8 kg Intake: IV 517.5 / 517.5 1000 / 1000 LR 1000 mL Inj 1,000 ML @ 80 1000 / 1000 mls/hr IV.CONT .[id number] MARYURI Rx# :[id number] Vancomycin Inj 1,750 MG In NS 517.5 / 517.5 Inj 500 ML @ 250 mls/hr IV.SIG Q12H MARYURI Rx#:[id number] Oral 2200 / 2200 600 / 600 Output: Urine 2400 / 2400 3200 / 3200 1700 / 1700 Wound Drainage 30 / 30 # 1 Anterior Knee 20 / 20 # 2 Anterior Knee HONEY Drain Narrative: GENERAL: NAD awake alert and oriented x3 talkative and cooperative SKIN: Warm and dry. HEAD: Atraumatic. Normocephalic. EYES: Pupils equal and round. No scleral icterus. No injection or drainage. EOMI ENT: No nasal bleeding or discharge. Mucous membranes pink and moist. Tongue midline NECK: Trachea midline. No JVD. Supple CARDIOVASCULAR: Regular rate and rhythm. S1-S2 no S3 or S4 RESPIRATORY: No accessory muscle use. Clear to auscultation. Breath sounds equal bilaterally. GASTROINTESTINAL: Abdomen soft, non-tender, nondistended. Hepatic and splenic margins not palpable. Obese MUSCULOSKELETAL: Extremities no clubbing, cyanosis, has edema on left knee area , erythema. Left lower extremity is dressed with [address] NEUROLOGICAL: Awake and alert. PSYCHIATRIC: Appropriate mood and affect; insight and judgment normal Results - Labs CBC & Chem 7: 04/30/18 04:55 04/29/18 05:23 Laboratory Results - last 24 hr 04/30/18 04:55 WBC 9.8 RBC 4.12 L Hgb 12.9 L Hct 36.6 L MCV 88.8 MCH 31.2 MCHC 35.1 RDW 13.2 Plt Count 374 MPV 7.4 Neut % (Auto) 70.2 H Lymph % (Auto) 14.4 [place] % (Auto) 12.1 H Eos % (Auto) 2.7 Baso % (Auto) 0.6 Neut # (Auto) 6.8 Lymph # (Auto) 1.4 [place] # (Auto) 1.2 H Eos # (Auto) 0.3 Baso # (Auto) 0.1 WBC Differential . Differential Comment Auto diff final - Imaging ITS Impressions Femur MRI 04/22/18 00:00 CONCLUSION: 1. Extensive cellulitis of the right thigh especially medially without evidence for osteomyelitis or discrete abscess. Femur X-Ray 04/22/18 16:21 CONCLUSION: Negative examination Femur CT 04/22/18 16:57 CONCLUSION: 1. Impressive subcutaneous edema across the upper leg. The soft tissue edema does extend into the peripheral fibers of the vastus medialis muscle and the sartorius muscle without obvious drainable fluid collection or mass effect on the musculature. - Procedures s/p Left thigh incision and debridement of necrotizing fasciitis with 10 cm incision and 40 cm x 40 cm square surface of debridement of necrotic fat 10 status post irrigation and debridement of left thigh infection by Dr. Jones Assessment and Plan - Plan 62 years old man with Necrotizing Fasciitis left thigh Sepsis MRSA s/p Left thigh incision and debridement of necrotizing fasciitis with 10 cm incision and 40 cm x 40 cm square surface of debridement of necrotic fat Management per Orthopedic surgery Wound Vac management per protocol Abx per ID;currently on Vanc, FOR MRSA PT to treat and eval -Status post second surgery on left thigh incision and debridement of necrotic fasciitis-with irrigation and debridement of left thigh in fact Hypertension controlled at this time. -Continue home losartan -Monitor blood pressure readings -Adjust treatments as indicated -PRN CATAPRES Osteoarthritis-pain control as needed-is on chronic hydrocodone at home as well as chronic baclofen and chronic morphine extended release Chronic pain on chronic morphine continue Lyrica BPH on chronic Flomax DVT prophylaxis -SCDs on unaffected extremity ("nonoperative" leg) INSOMNIA- INCREASE MELATONIN ANTIBIOTICS PER ID ON VANCO NOW FOR MRSA- STILL HAS DRAIN IN PLACE WILL NEED PICC LINE ONCE DRAINS ARE OUT Code Status: FULL CODE Discussed Condition With: RN AND PT AND CM Discharge Planning: Pending clearance by infectious disease and orthopedic surgery
[2018-04-30] MEDS ORDERED: Pharmacy Ordered Lab Info OTHER ONE (11:45)
[2018-04-30 12:16] LABS: Alanine Aminotransferase 51 U/L (12-78); Albumin 2.8 g/dL (3.4-5.0); Anion Gap 9 meq/L (5-15); Aspartate Aminotransferase 24 U/L (15-37); Blood Urea Nitrogen 10 mg/dL (7-18); Calcium 8.4 mg/dL (8.5-10.1); Carbon Dioxide 26.8 meq/L (21.0-32.0); Chloride 106 meq/L (98-107); Glomerular Filtration Rate 87 mL/min (>89); Glucose,Random 161 mg/dL (74-106); Phosphorus 2.6 mg/dL (2.5-4.9); Potassium 3.8 meq/L (3.5-5.1); Sodium 142 meq/L (136-145)
[2018-04-30 12:22] LABS: Alkaline Phosphatase 62 U/L (45-117); Total Protein 6.6 g/dL (6.4-8.2); Vancomycin,Trough 18.3 mcg/mL (5.0-10.0)
[2018-04-30] MEDS: Vancomycin Inj 1,750 MG in Sodium Chlor 0.9% Inj 500 ML IV.SIG SCH ×2 (13:11→23:06)
[2018-05-01] MEDS: Morphine Sulfate 15 MG SR Tablet PO SCH ×3 (06:45→23:39)
[2018-05-01] MEDS: clonazePAM 1 MG Tablet PO SCH ×2 (09:50→20:17)
[2018-05-01] MEDS: Multivitamin/Minerals Therapeutic Tablet PO SCH ×2 (09:50→20:18)
[2018-05-01] MEDS: Baclofen 10 MG Tablet PO SCH (09:50)
[2018-05-01] MEDS: Senna/Docusate Sodium 8.6/50 MG Tablet PO SCH ×2 (12:30→20:18)
--- NOTE | 2018-05-01 13:22 | P.PNIM ---
Subjective Interval history: Chief Complaint: Left thigh discoloration, swelling, and pain History of Present Illness: Mr. Burris is a 62 year-old male with a history of arthritis, chronic back and neck pain, and hypertension who presented to the [facility] complaining of fever (up to 103 starting 04/20), left thigh pain with purplish discoloration of skin, and swelling since Wednesday 04/18. He was found to have sepsis from left thigh cellulitis with concern for necrotizing fasciitis and was transferred to [facility] upon the recommendation of the orthopedic surgeon for further evaluation and management under the hospitalist service. MRI upon arrival showed extensive cellulitis of right thigh with no osteomyelitis or discrete abscess. The patient reports that symptoms began with a possible spider bite to left thigh. He was placed on bactrim by his PCP but his symptoms continued to progress and worsen throughout the week despite treatment. His temperature was 102.9 on arrival. Denies any history of diabetes mellitus. 04-23 Follow up Necrotizing Fasciitis left thigh/sepsis 04/23/18-patient seen and examined; s/p Left thigh incision and debridement of necrotizing fasciitis with 10 cm incision and 40 cm x 40 cm square surface of debridement of necrotic fat 10- Follow up Necrotizing Fasciitis left thigh/sepsis 04/24: Status post Left thigh incision and debridement of necrotizing fasciitis with 10 cm incision and 40 cm x 40 cm square surface of debridement of necrotic fat. Orthopedic surgery following, POD#1, stable by specialist. seen in his bedroom no nausea, vomit or diarrhea, has erythema, vacuum in place. 10 HAD REPEAT SURGERY ON LEFT THIGH TODAY WITH ORTHOPEDIC SURGERY WILL CONTINUE ANTIBIOTICS PER ID Positive MRSA in wound continue on Vanco and Zosyn await sensitivities Has chronic pain Continue on pain medications A.m. labs PT and OT 10- ANTIBIOTICS PER ID ON VANCOMYCIN STILL SHAJI RN AND PT AND CM STILL HAVE DRAINS 10 CONTINUE ON ANTIBIOTICS ON VANCOMYCIN STILL STILL HAS DRAINS IN PLACE NOT CLEARED FOR DC YET AM LABS WANTS MORE MELATONIN 10- PATIENT STATES HE IS IN PAIN BUT DOES NOT APPEAR UNCOMFORTABLE IN THE CHAIR SHAJI RN AND PT AND CM AND FAMILY HAD DRESSING CHANGES TODAY AM LABS MONITOR PAIN CONTROL - STATES PAIN IS BETTER CONTROLLED VERY CONCERNED ABOUT PAIN MEDICATIONS BLOOD PRESSURE IS BETTER AM LABS INCREASE ACTIVITY 04-30 STILL COMPLAINS OF LOTS OF PAIN VERY CONCERNED ABOUT PAIN MEDS STILL SHAJI RN AND PT AND CM INCREASE ACTIVITY 05-01 STILL HAS SOME COMPLAINTS OF PAIN VERY CONCERNED ABOUT PAIN MEDS -DW RN AND PT AND CM STILL HAS DRAINS IN PLACE Physical Exam Vital signs: Vital Signs 04/30/18 16:00 04/30/18 20:00 04/30/18 21:35 Temperature 99.2 F 97.8 F Pulse Rate 82 85 Respiratory Rate 18 22 20 Blood Pressure 171/80 H 182/82 H Pulse Oximetry 93 L 95 04/30/18 23:35 05/01/18 00:00 05/01/18 01:38 Temperature 98.4 F Pulse Rate 75 Respiratory Rate 20 22 20 Blood Pressure 166/87 H Pulse Oximetry 95 05/01/18 04:00 05/01/18 04:16 05/01/18 05:32 Temperature 97.9 F Pulse Rate 75 Respiratory Rate 22 20 20 Blood Pressure 169/81 H Pulse Oximetry 93 L 05/01/18 06:44 05/01/18 08:00 05/01/18 12:00 Temperature 97.9 F 97.6 F Pulse Rate 81 78 Respiratory Rate 20 17 17 Blood Pressure 162/84 H 147/70 H Pulse Oximetry 94 L 94 L Intake & Output 04/30/18 05/01/18 05/01/18 18:59 06:59 18:59 Intake Total 1517.5 / 1517.5 1775 / 1775 Output Total 1745 / 1745 2250 / 2250 Balance -227.5 / -227.5 -475 / -475 Weight 109.9 kg Intake: IV 1517.5 / 1517.5 1455 / 1455 LR 1000 mL Inj 1,000 ML @ 80 1000 / 1000 900 / 900 mls/hr IV.CONT .[id number] [facility] Rx# :[id number] Vancomycin Inj 1,750 MG In NS 517.5 / 517.5 555 / 555 Inj 500 ML @ 250 mls/hr IV.SIG Q12H [facility] Rx#:[id number] Oral 320 / 320 Output: Urine 1700 / 1700 2250 / 2250 Wound Drainage 45 / 45 # 1 Anterior Knee 30 / 30 # 2 Anterior Knee HONEY Drain Other: Date of Last Bowel Movement 04/30/18 Narrative: GENERAL: NAD awake alert and oriented x3 talkative and cooperative SKIN: Warm and dry. HEAD: Atraumatic. Normocephalic. EYES: Pupils equal and round. No scleral icterus. No injection or drainage. EOMI ENT: No nasal bleeding or discharge. Mucous membranes pink and moist. Tongue midline NECK: Trachea midline. No JVD. Supple CARDIOVASCULAR: Regular rate and rhythm. S1-S2 no S3 or S4 RESPIRATORY: No accessory muscle use. Clear to auscultation. Breath sounds equal bilaterally. GASTROINTESTINAL: Abdomen soft, non-tender, nondistended. Hepatic and splenic margins not palpable. Obese MUSCULOSKELETAL: Extremities no clubbing, cyanosis, has edema on left knee area , erythema. Left lower extremity is dressed with [address] NEUROLOGICAL: Awake and alert. PSYCHIATRIC: Appropriate mood and affect; insight and judgment normal Results - Labs CBC & Chem 7: 04/30/18 04:55 04/30/18 11:00 Microbiology 04/23/18 08:50 Wound - Thigh Acid Fast Bacilli Smear - Final No acid fast bacilli seen 04/23/18 08:50 Wound - Thigh Mycobacterial Culture - Preliminary No growth in 1 week 04/23/18 08:50 Wound - Thigh Fungal Smear - Final No fungal elements seen 04/23/18 08:50 Wound - Thigh Fungal Culture - Preliminary No growth in 1 week 04/23/18 08:50 Wound - Thigh Acid Fast Bacilli Smear - Final No acid fast bacilli seen 04/23/18 08:50 Wound - Thigh Mycobacterial Culture - Preliminary No growth in 1 week 04/23/18 08:50 Wound - Thigh Fungal Smear - Final No fungal elements seen 04/23/18 08:50 Wound - Thigh Fungal Culture - Preliminary No growth in 1 week 04/23/18 08:50 Wound - Thigh Fungal Smear - Final No fungal elements seen 04/23/18 08:50 Wound - Thigh Fungal Culture - Preliminary No growth in 1 week 04/23/18 08:50 Wound - Thigh Acid Fast Bacilli Smear - Final No acid fast bacilli seen 04/23/18 08:50 Wound - Thigh Mycobacterial Culture - Preliminary No growth in 1 week 04/23/18 08:50 Wound - Thigh Acid Fast Bacilli Smear - Final No acid fast bacilli seen 04/23/18 08:50 Wound - Thigh Mycobacterial Culture - Preliminary No growth in 1 week 04/23/18 08:50 Wound - Thigh Fungal Smear - Final No fungal elements seen 04/23/18 08:50 Wound - Thigh Fungal Culture - Preliminary No growth in 1 week 04/23/18 08:50 Tissue - Thigh Fungal Smear - Final No fungal elements seen 04/23/18 08:50 Tissue - Thigh Fungal Culture - Preliminary No growth in 1 week 04/23/18 08:50 Tissue - Thigh Acid Fast Bacilli Smear - Final No acid fast bacilli seen 04/23/18 08:50 Tissue - Thigh Mycobacterial Culture - Preliminary No growth in 1 week - Imaging ITS Impressions Femur MRI 04/22/18 00:00 CONCLUSION: 1. Extensive cellulitis of the right thigh especially medially without evidence for osteomyelitis or discrete abscess. Femur X-Ray 04/22/18 16:21 CONCLUSION: Negative examination Femur CT 04/22/18 16:57 CONCLUSION: 1. Impressive subcutaneous edema across the upper leg. The soft tissue edema does extend into the peripheral fibers of the vastus medialis muscle and the sartorius muscle without obvious drainable fluid collection or mass effect on the musculature. - Procedures s/p Left thigh incision and debridement of necrotizing fasciitis with 10 cm incision and 40 cm x 40 cm square surface of debridement of necrotic fat 10 status post irrigation and debridement of left thigh infection by Dr. Jones Assessment and Plan - Plan 62 years old man with Necrotizing Fasciitis left thigh Sepsis MRSA s/p Left thigh incision and debridement of necrotizing fasciitis with 10 cm incision and 40 cm x 40 cm square surface of debridement of necrotic fat Management per Orthopedic surgery Wound Vac management per protocol Abx per ID;currently on Vanc, FOR MRSA PT to treat and eval -Status post second surgery on left thigh incision and debridement of necrotic fasciitis-with irrigation and debridement of left thigh in fact Hypertension controlled at this time. -Continue home losartan -Monitor blood pressure readings -Adjust treatments as indicated -PRN CATAPRES Osteoarthritis-pain control as needed-is on chronic hydrocodone at home as well as chronic baclofen and chronic morphine extended release Chronic pain on chronic morphine continue Lyrica BPH on chronic Flomax DVT prophylaxis -SCDs on unaffected extremity ("nonoperative" leg) INSOMNIA- INCREASE MELATONIN ANTIBIOTICS PER ID ON VANCO NOW FOR MRSA- STILL HAS DRAIN IN PLACE WILL NEED PICC LINE ONCE DRAINS ARE OUT Code Status: FULL CODE Discussed Condition With: RN AND PT AND FAMILY AND CM Discharge Planning: Pending clearance by infectious disease and orthopedic surgery
[2018-05-01] MEDS: Vancomycin Inj 1,750 MG in Sodium Chlor 0.9% Inj 500 ML IV.SIG SCH ×2 (14:15→23:39)
[2018-05-01] MEDS: Melatonin 5 MG Tablet PO PRN (23:49)
--- NOTE | 2018-05-02 07:40 | P.PNOP ---
Subjective Interval history: POd 7 s/p I&D left thigh doing well. pain controlled. no changes Physical Exam Vital signs: Vital Signs 05/01/18 08:00 05/01/18 12:00 05/01/18 16:00 Temperature 97.9 F 97.6 F 98.2 F Pulse Rate 81 78 79 Respiratory Rate 17 17 17 Blood Pressure 162/84 H 147/70 H 155/74 H Pulse Oximetry 94 L 94 L 95 05/01/18 20:00 05/02/18 00:00 05/02/18 04:00 Temperature 97.9 F 97.8 F 98 F Pulse Rate 74 81 83 Respiratory Rate 18 20 20 Blood Pressure 171/79 H 181/89 H 140/75 Pulse Oximetry 94 L 95 97 Intake & Output 05/01/18 05/02/18 05/02/18 18:59 06:59 18:59 Intake Total 4017.5 / 4017.5 517.5 / 517.5 Output Total 2345 / 2345 38 / 38 Balance 1672.5 / 1672.5 479.5 / 479.5 Weight 111.1 kg Intake: IV 1517.5 / 1517.5 517.5 / 517.5 LR 1000 mL Inj 1,000 ML @ 80 1000 / 1000 mls/hr IV.CONT .[id number] [facility] Rx# :[id number] Vancomycin Inj 1,750 MG In NS 517.5 / 517.5 517.5 / 517.5 Inj 500 ML @ 250 mls/hr IV.SIG Q12H [facility] Rx#:[id number] Oral 2500 / 2500 Output: Urine 2300 / 2300 Wound Drainage 45 / 45 38 / 38 # 1 Anterior Knee 25 / 25 30 / 30 # 2 Anterior Knee HONEY Drain 20 / 20 8 / 8 Other: Date of Last Bowel Movement 05/01/18 # Bowel Movements 1 Narrative: LLE: incisions healing well. no drainage. skin healing well with no evidence of necrosis. drains present Results - Labs CBC & Chem 7: 04/30/18 04:55 04/30/18 11:00 - Procedures s/p Left thigh incision and debridement of necrotizing fasciitis with 10 cm incision and 40 cm x 40 cm square surface of debridement of necrotic fat 10- status post irrigation and debridement of left thigh infection by Dr. Jones Assessment and Plan - Assessment and Plan 1) Left Thigh Abscess and Infection s/p I&D and wound closure - POD 7 -WBAT -daily dressing -drains removed at bedside -Infectious Dz for Abx mgmt -Cx show MRSA -plan for DC home once Abx arranged -f/u with Dr Chaparro in 2 weeks -patient currently receiving Hydrocodone 10 and morphine from pain mgmt. will defer pain meds to pain management
--- NOTE | 2018-05-02 07:41 | P.DCO ---
- Nursing Dressing changes: Daily dressing change, Fermin wrap, Xeroform Additional instructions: PICC line management - Certification Need for Home Health services: I have seen patient Dank Burris III on 05/02/18. My clinical findings support the need for the requested home health care services because: Need for Home Health Services: Limited mobility due to disease progression Homebound Certification: I certify that my clinical findings support that this patient is homebound because: Homebound Certification: Post-op weakness
[2018-05-02] MEDS: Senna/Docusate Sodium 8.6/50 MG Tablet PO SCH ×2 (09:41→20:14)
[2018-05-02 09:42] LABS: Baso # (Auto) 0.1 th/mm3 (0.0-0.2); Baso % (Auto) 0.5 % (0.0-2.0); Eos # (Auto) 0.2 th/mm3 (0.0-0.4); Eos % (Auto) 1.7 % (0.0-4.0); Hematocrit 41.9 % (39.0-51.0); Hemoglobin 13.9 gm/dL (13.0-17.0); Lymph # (Auto) 2.2 th/mm3 (1.0-4.8); Mean Corpuscular HGB Conc 33.3 % (32.0-36.0); Mean Corpuscular Hemoglobin 30.2 pg (27.0-34.0); Mean Corpuscular Volume 90.6 fL (80.0-100.0); Mean Platelet Volume 7.5 fL (7.0-11.0); Mono # (Auto) 1.3 th/mm3 (0.0-0.9); Mono % (Auto) 10.3 % (0.0-8.0); Neut % (Auto) 70.5 % (16.0-70.0); Platelet Count 381 th/mm3 (150-450); Red Blood Count 4.62 mil/mm3 (4.50-5.90); Red Cell Distribution Width 13.5 % (11.6-17.2); White Blood Count 12.8 th/mm3 (4.0-11.0)
[2018-05-02] MEDS: Morphine Sulfate 15 MG SR Tablet PO SCH ×3 (09:42→23:03)
[2018-05-02] MEDS: Multivitamin/Minerals Therapeutic Tablet PO SCH ×2 (09:42→20:13)
[2018-05-02] MEDS: Baclofen 10 MG Tablet PO SCH (09:43)
[2018-05-02] MEDS: clonazePAM 1 MG Tablet PO SCH ×2 (09:43→20:13)
[2018-05-02 10:16] LABS: Albumin 3.2 g/dL (3.4-5.0); Anion Gap 9 meq/L (5-15); Aspartate Aminotransferase 18 U/L (15-37); Blood Urea Nitrogen 10 mg/dL (7-18); Calcium 8.8 mg/dL (8.5-10.1); Chloride 104 meq/L (98-107); Glomerular Filtration Rate Greater Than 89 mL/min (>89); Magnesium 2.3 mg/dL (1.5-2.5); Sodium 139 meq/L (136-145)
[2018-05-02 10:33] LABS: Alanine Aminotransferase 49 U/L (12-78); Alkaline Phosphatase 66 U/L (45-117); Glucose,Random 94 mg/dL (74-106); Phosphorus 3.1 mg/dL (2.5-4.9); Total Protein 7.4 g/dL (6.4-8.2)
[2018-05-02] MEDS ORDERED: Pharmacy Ordered Lab Info OTHER ONE (11:45)
--- NOTE | 2018-05-02 12:02 | P.PNID ---
Subjective Remarks: Patient is a 62-year-old male, presented to the hospital for further evaluation of progressive swelling redness and discoloration on his left thigh. Patient noted initially what looks like a puncture wound on his medial left thigh. He went to his primary care doctor, and was given a prescription for Bactrim. Patient stated that there was no redness. It has a brownish color to it. Over the next day, he developed increasing redness, swelling, and there was an area that looks purplish in color. He was also getting painful. He was also having fever and chills, with temperature documented to around 102. He has not had any sore throat or any respiratory complaint. No nausea or vomiting or any diarrhea. He denies any urinary complaints. He does not remember having any insect bite, or any trauma to his left lower extremity. Patient was seen by orthopedic, and there was some concern about progressive infection, and he went to surgery today. He apparently had findings of necrotizing fasciitis, and there was significant purulence seen. He has a wound VAC in place. His white count is elevated. He has been febrile. He is currently on Zosyn and vancomycin. Infectious disease consultation has been requested to evaluate the patient. Notes reviewed Temps ok WBC normal Clinically better Good ROM R knee Drains removed today Last surgery 04/25, closure done First OR C/S MRSA No rash or itching ESR 11 CRP 16.5 Antibiotics: Vancomycin Lines: PIV Past Medical History: Hypertension Arthritis Back and neck OR Allergies/Adverse Reactions: Allergies No Known Allergies Allergy (Verified 04/22/18 15:52) Objective Vital Signs 05/01/18 12:00 05/01/18 16:00 05/01/18 20:00 Temperature 97.6 F 98.2 F 97.9 F Pulse Rate 78 79 74 Respiratory Rate 17 17 18 Blood Pressure 147/70 H 155/74 H 171/79 H Pulse Oximetry 94 L 95 94 L 05/02/18 00:00 05/02/18 04:00 05/02/18 08:00 Temperature 97.8 F 98 F 98.4 F Pulse Rate 81 83 77 Respiratory Rate 20 20 18 Blood Pressure 181/89 H 140/75 148/69 H Pulse Oximetry 95 97 94 L Intake & Output 05/01/18 05/02/18 05/02/18 18:59 06:59 18:59 Intake Total 4017.5 / 4017.5 917.5 / 917.5 Output Total 2345 / 2345 2438 / 2438 Balance 1672.5 / 1672.5 -1520.5 / -1520.5 Weight 111.1 kg Intake: IV 1517.5 / 1517.5 517.5 / 517.5 LR 1000 mL Inj 1,000 ML @ 80 1000 / 1000 mls/hr IV.CONT .[id number] [facility] Rx# :[id number] Vancomycin Inj 1,750 MG In NS 517.5 / 517.5 517.5 / 517.5 Inj 500 ML @ 250 mls/hr IV.SIG Q12H [facility] Rx#:[id number] Oral 2500 / 2500 400 / 400 Output: Urine 2300 / 2300 2400 / 2400 Wound Drainage 45 / 45 38 / 38 # 1 Anterior Knee 25 / 25 30 / 30 # 2 Anterior Knee HONEY Drain 8 Other: Date of Last Bowel Movement 05/01/18 # Bowel Movements 1 04/23/18 08:50 Wound - Thigh Acid Fast Bacilli Smear - Final No acid fast bacilli seen 04/23/18 08:50 Wound - Thigh Mycobacterial Culture - Preliminary No growth in 1 week 04/23/18 08:50 Wound - Thigh Fungal Smear - Final No fungal elements seen 04/23/18 08:50 Wound - Thigh Fungal Culture - Preliminary No growth in 1 week 04/23/18 08:50 Wound - Thigh Acid Fast Bacilli Smear - Final No acid fast bacilli seen 04/23/18 08:50 Wound - Thigh Mycobacterial Culture - Preliminary No growth in 1 week 04/23/18 08:50 Wound - Thigh Fungal Smear - Final No fungal elements seen 04/23/18 08:50 Wound - Thigh Fungal Culture - Preliminary No growth in 1 week 04/23/18 08:50 Wound - Thigh Fungal Smear - Final No fungal elements seen 04/23/18 08:50 Wound - Thigh Fungal Culture - Preliminary No growth in 1 week 04/23/18 08:50 Wound - Thigh Acid Fast Bacilli Smear - Final No acid fast bacilli seen 04/23/18 08:50 Wound - Thigh Mycobacterial Culture - Preliminary No growth in 1 week 04/23/18 08:50 Wound - Thigh Acid Fast Bacilli Smear - Final No acid fast bacilli seen 04/23/18 08:50 Wound - Thigh Mycobacterial Culture - Preliminary No growth in 1 week 04/23/18 08:50 Wound - Thigh Fungal Smear - Final No fungal elements seen 04/23/18 08:50 Wound - Thigh Fungal Culture - Preliminary No growth in 1 week 04/23/18 08:50 Tissue - Thigh Fungal Smear - Final No fungal elements seen 04/23/18 08:50 Tissue - Thigh Fungal Culture - Preliminary No growth in 1 week 04/23/18 08:50 Tissue - Thigh Acid Fast Bacilli Smear - Final No acid fast bacilli seen 04/23/18 08:50 Tissue - Thigh Mycobacterial Culture - Preliminary No growth in 1 week Lab - Hematology Results 05/02/18 06:29 WBC 12.8 H RBC 4.62 Hgb 13.9 Hct 41.9 MCV 90.6 MCH 30.2 MCHC 33.3 RDW 13.5 Plt Count 381 MPV 7.5 Neut % (Auto) 70.5 H Lymph % (Auto) 17.0 [place] % (Auto) 10.3 H Eos % (Auto) 1.7 Baso % (Auto) 0.5 Neut # (Auto) 9.0 H Lymph # (Auto) 2.2 [place] # (Auto) 1.3 H Eos # (Auto) 0.2 Baso # (Auto) 0.1 WBC Differential . Differential Comment Auto diff final Lab - Chemistry Results 04/30/18 05/02/18 11:00 06:29 Sodium 142 139 Potassium 3.8 4.0 Chloride 106 104 Carbon Dioxide 26.8 26.0 Anion Gap 9 9 BUN 10 10 Creatinine 0.89 0.84 Estimated GFR 87 L Greater than 89 Random Glucose 161 H 94 Calcium 8.4 L D 8.8 Phosphorus 2.6 3.1 Magnesium 2.0 2.3 Total Bilirubin 0.4 0.6 AST 24 18 ALT 51 49 Alkaline Phosphatase 62 66 Total Protein 6.6 7.4 D Albumin 2.8 L 3.2 L Imaging: ITS Impressions Femur MRI 04/22/18 00:00 CONCLUSION: 1. Extensive cellulitis of the right thigh especially medially without evidence for osteomyelitis or discrete abscess. Femur X-Ray 04/22/18 16:21 CONCLUSION: Negative examination Femur CT 04/22/18 16:57 CONCLUSION: 1. Impressive subcutaneous edema across the upper leg. The soft tissue edema does extend into the peripheral fibers of the vastus medialis muscle and the sartorius muscle without obvious drainable fluid collection or mass effect on the musculature. Physical Exam: GENERAL: awake and alert, NAD SKIN: Warm and dry. No generalized rash. HEAD: Atraumatic. Normocephalic. No temporal wasting, or tenderness. EYES: [place] conjunctiva. No petechia or hemorrhage. No scleral icterus. No injection or drainage. EARS, NOSE AND THROAT: Nose without bleeding or purulent nasal discharge. Mucous membranes pink and moist. No oral lesions noted. NECK: Trachea midline. Supple and not tender, no meningeal signs CARDIOVASCULAR: Regular rate and rhythm. No murmurs, rubs or gallops heard RESPIRATORY: Clear to auscultation. Breath sounds equal bilaterally. No rales , wheezing or rhonchi ABDOMEN: Soft, non-tender, nondistended. Bowel sounds present and normoactive. No guarding. No rebound. No organomegaly. EXTREMITIES: No clubbing, cyanosis. Dry incisions L thigh, small amount discharge from previous drain sites, ecchymoses medial distal L thigh still present but overalll better, redness much improved. Swelling better. NEUROLOGICAL: Grossly within normal limits. PSYCHIATRIC: calm and cooperative. LINE: No evidence of infection Assessment and Plan - Plan Impression Necrotizing fasciitis L thigh - prelim C/S MRSA Sepsis due to above Fevers, better leukocytosis, resolved Recommendation Continue vanco - plan 4 more weeks on D/C - end date May 29 Await trough today to determine final dosing of Vanco Patient and sister deciding on where to go for D/C PICC D/W sister and patient regarding IV Abx and treatment plan, and answered all their questions Will; refer to Dr Carolina Lewis for fup I will fill out Abx form once trough done D/W RN Spoke with CINDY
[2018-05-02] MEDS ORDERED: Heparin Central Flush 100 UNIT/ML 5 ML Vial IV.FLUSH PRN (13:37)
--- NOTE | 2018-05-02 13:43 | P.PNIM ---
Subjective Interval history: Chief Complaint: Left thigh discoloration, swelling, and pain History of Present Illness: Mr. Burris is a 62 year-old male with a history of arthritis, chronic back and neck pain, and hypertension who presented to the [place] [facility] complaining of fever (up to 103 starting 04/20), left thigh pain with purplish discoloration of skin, and swelling since Wednesday 04/18. He was found to have sepsis from left thigh cellulitis with concern for necrotizing fasciitis and was transferred to [facility] upon the recommendation of the orthopedic surgeon for further evaluation and management under the hospitalist service. MRI upon arrival showed extensive cellulitis of right thigh with no osteomyelitis or discrete abscess. The patient reports that symptoms began with a possible spider bite to left thigh. He was placed on bactrim by his PCP but his symptoms continued to progress and worsen throughout the week despite treatment. His temperature was 102.9 on arrival. Denies any history of diabetes mellitus. 04-23 Follow up Necrotizing Fasciitis left thigh/sepsis 04/23/18-patient seen and examined; s/p Left thigh incision and debridement of necrotizing fasciitis with 10 cm incision and 40 cm x 40 cm square surface of debridement of necrotic fat 10- Follow up Necrotizing Fasciitis left thigh/sepsis 04/24: Status post Left thigh incision and debridement of necrotizing fasciitis with 10 cm incision and 40 cm x 40 cm square surface of debridement of necrotic fat. Orthopedic surgery following, POD#1, stable by specialist. seen in his bedroom no nausea, vomit or diarrhea, has erythema, vacuum in place. 10 HAD REPEAT SURGERY ON LEFT THIGH TODAY WITH ORTHOPEDIC SURGERY WILL CONTINUE ANTIBIOTICS PER ID Positive MRSA in wound continue on Vanco and Zosyn await sensitivities Has chronic pain Continue on pain medications A.m. labs PT and OT 10- ANTIBIOTICS PER ID ON VANCOMYCIN STILL SHAJI RN AND PT AND CM STILL HAVE DRAINS 10 CONTINUE ON ANTIBIOTICS ON VANCOMYCIN STILL STILL HAS DRAINS IN PLACE NOT CLEARED FOR DC YET AM LABS WANTS MORE MELATONIN 10- PATIENT STATES HE IS IN PAIN BUT DOES NOT APPEAR UNCOMFORTABLE IN THE CHAIR SHAJI RN AND PT AND CM AND FAMILY HAD DRESSING CHANGES TODAY AM LABS MONITOR PAIN CONTROL - STATES PAIN IS BETTER CONTROLLED VERY CONCERNED ABOUT PAIN MEDICATIONS BLOOD PRESSURE IS BETTER AM LABS INCREASE ACTIVITY 04-30 STILL COMPLAINS OF LOTS OF PAIN VERY CONCERNED ABOUT PAIN MEDS STILL SHAJI RN AND PT AND CM INCREASE ACTIVITY 05-01 STILL HAS SOME COMPLAINTS OF PAIN VERY CONCERNED ABOUT PAIN MEDS -DW RN AND PT AND CM STILL HAS DRAINS IN PLACE 05-02 patient still complains of lots of pain Needs to have PICC line Will need antibiotics IV for extended period of time Discussed with RN and patient and case management infectious disease -May need sniff versus home health care Still needs PICC line for discharge And clearance for vancomycin for 4 more weeks through May 29 To follow-up with Dr. Carolina Lewis Physical Exam Vital signs: Vital Signs 05/01/18 16:00 05/01/18 20:00 05/02/18 00:00 Temperature 98.2 F 97.9 F 97.8 F Pulse Rate 79 74 81 Respiratory Rate 17 18 20 Blood Pressure 155/74 H 171/79 H 181/89 H Pulse Oximetry 95 94 L 95 05/02/18 04:00 05/02/18 08:00 Temperature 98 F 98.4 F Pulse Rate 83 77 Respiratory Rate 20 18 Blood Pressure 140/75 148/69 H Pulse Oximetry 97 94 L Intake & Output 05/01/18 05/02/18 05/02/18 18:59 06:59 18:59 Intake Total 4017.5 / 4017.5 917.5 / 917.5 Output Total 2345 / 2345 2438 / 2438 Balance 1672.5 / 1672.5 -1520.5 / -1520.5 Weight 111.1 kg Intake: IV 1517.5 / 1517.5 517.5 / 517.5 LR 1000 mL Inj 1,000 ML @ 80 1000 / 1000 mls/hr IV.CONT .[id number] [facility] Rx# :[id number] Vancomycin Inj 1,750 MG In NS 517.5 / 517.5 517.5 / 517.5 Inj 500 ML @ 250 mls/hr IV.SIG Q12H [facility] Rx#:[id number] Oral 2500 / 2500 400 / 400 Output: Urine 2300 / 2300 2400 / 2400 Wound Drainage 45 / 45 38 / 38 # 1 Anterior Knee / 30 / 30 # 2 Anterior Knee HONEY Drain 8 / 8 Other: Date of Last Bowel Movement 05/01/18 # Bowel Movements 1 Narrative: GENERAL: NAD awake alert and oriented x3 talkative and cooperative SKIN: Warm and dry. HEAD: Atraumatic. Normocephalic. EYES: Pupils equal and round. No scleral icterus. No injection or drainage. EOMI ENT: No nasal bleeding or discharge. Mucous membranes pink and moist. Tongue midline NECK: Trachea midline. No JVD. Supple CARDIOVASCULAR: Regular rate and rhythm. S1-S2 no S3 or S4 RESPIRATORY: No accessory muscle use. Clear to auscultation. Breath sounds equal bilaterally. GASTROINTESTINAL: Abdomen soft, non-tender, nondistended. Hepatic and splenic margins not palpable. Obese MUSCULOSKELETAL: Extremities no clubbing, cyanosis, has edema on left knee area , erythema. Left lower extremity is dressed --drains have been removed today NEUROLOGICAL: Awake and alert. PSYCHIATRIC: Appropriate mood and affect; insight and judgment normal Results - Labs CBC & Chem 7: 05/02/18 06:29 05/02/18 06:29 Laboratory Results - last 24 hr 05/02/18 05/02/18 06:29 06:29 WBC 12.8 H RBC 4.62 Hgb 13.9 Hct 41.9 MCV 90.6 MCH 30.2 MCHC 33.3 RDW 13.5 Plt Count 381 MPV 7.5 Neut % (Auto) 70.5 H Lymph % (Auto) 17.0 [place] % (Auto) 10.3 H Eos % (Auto) 1.7 Baso % (Auto) 0.5 Neut # (Auto) 9.0 H Lymph # (Auto) 2.2 [place] # (Auto) 1.3 H Eos # (Auto) 0.2 Baso # (Auto) 0.1 WBC Differential . Differential Comment Auto diff final Sodium 139 Potassium 4.0 Chloride 104 Carbon Dioxide 26.0 Anion Gap 9 BUN 10 Creatinine 0.84 Estimated GFR Greater than 89 Random Glucose 94 Calcium 8.8 Phosphorus 3.1 Magnesium 2.3 Total Bilirubin 0.6 AST 18 ALT 49 Alkaline Phosphatase 66 Total Protein 7.4 D Albumin 3.2 L - Imaging ITS Impressions Femur MRI 04/22/18 00:00 CONCLUSION: 1. Extensive cellulitis of the right thigh especially medially without evidence for osteomyelitis or discrete abscess. Femur X-Ray 04/22/18 16:21 CONCLUSION: Negative examination Femur CT 04/22/18 16:57 CONCLUSION: 1. Impressive subcutaneous edema across the upper leg. The soft tissue edema does extend into the peripheral fibers of the vastus medialis muscle and the sartorius muscle without obvious drainable fluid collection or mass effect on the musculature. - Procedures s/p Left thigh incision and debridement of necrotizing fasciitis with 10 cm incision and 40 cm x 40 cm square surface of debridement of necrotic fat 10- status post irrigation and debridement of left thigh infection by Dr. Jones Assessment and Plan - Plan 62 years old man with Necrotizing Fasciitis left thigh Sepsis MRSA s/p Left thigh incision and debridement of necrotizing fasciitis with 10 cm incision and 40 cm x 40 cm square surface of debridement of necrotic fat Management per Orthopedic surgery Wound Vac management per protocol Abx per ID;currently on Vanc, FOR MRSA PT to treat and eval -Status post second surgery on left thigh incision and debridement of necrotic fasciitis-with irrigation and debridement of left thigh in fact Hypertension controlled at this time. -Continue home losartan -Monitor blood pressure readings -Adjust treatments as indicated -PRN CATAPRES Osteoarthritis-pain control as needed-is on chronic hydrocodone at home as well as chronic baclofen and chronic morphine extended release Chronic pain on chronic morphine continue Lyrica BPH on chronic Flomax DVT prophylaxis -SCDs on unaffected extremity ("nonoperative" leg) INSOMNIA- INCREASE MELATONIN ANTIBIOTICS PER ID ON VANCO NOW FOR MRSA-drains been removed WILL NEED PICC LINE Will need IV antibiotics with vancomycin through May 29 Might needs SNF or home health care Code Status: Full code Discussed Condition With: RN and patient and case management and family Discharge Planning: Pending clearance by infectious disease and orthopedic surgery
[2018-05-02] MEDS: Vancomycin Inj 1,750 MG in Sodium Chlor 0.9% Inj 500 ML IV.SIG SCH ×2 (13:45→23:03)
--- NOTE | 2018-05-02 14:27 | P.DCO ---
Post Hospital Infusion Therapy - Infusion Therapy Location of Infusion Therapy: Home Health Care IV Infusion Order - Patient Information Patient Weight: 111.1 kg - Diagnosis (1) Necrotizing fasciitis of pelvic region and thigh Code(s): M72.6 - Necrotizing fasciitis (2) MRSA (methicillin resistant Staphylococcus aureus) infection Code(s): A49.02 - Methicillin resistant Staphylococcus aureus infection, unspecified site - Administer Medication Vancomycin Additional Dosing Instructions: Vanco 1.75 gm IV q12H Stop Treatment: 04/28/18 - Additional Information Venous Access: PICC Line Additional Instructions: [x] Peripheral flush and dressing changes per protocol [x] Implanted port and central online marketing strategist: * Implanted port: 10 ml Normal Saline followed by 5 ml Heparin 100 units/ml Heparin flush after each use and monthly to maintain. [] May leave port accessed during therapy. [] May leave peripheral site accessed for duration of therapy. [x] If patient has SOB or respiratory distress, check oxygen saturation. If less than 90% or clinical signs of respiratory distress, administer oxygen at 2 L/min. via nasal cannula and notify physician. [x] Anaphylaxis/Reaction orders: * Stop infusion. * Keep IV line open with saline flush. * Notify physician. * Monitor vital signs every 15 minutes until symptoms resolve. * Check Oxygen saturation; Oxygen at 2 L/min. via nasal cannula if less than 90% or clinical signs of respiratory distress. * Administer diphenhydramine (Benadryl) 25 mg IV STAT, (unless patient has received as pre-med). May repeat once, if necessary. * Solu-Cortef 250 mg IVP over 30-60 seconds, use 100 mg vials for each dissolution. * Epinephrine (1mg/1 ml) 0.3 mg subcutaneously or IVP now with any signs of respiratory distress. * Check with physician for new additional pre-med orders if patient is re- challenged or re-treated. [x] May remove PICC line when treatment complete. [x] If the patient is admitted to the hospital, the ED, or transferred via [facility] , complete transfer form including medication reconciliation order sheet. Weekly Labs: CBC w/diff (CBC every Wednesday), Creatinine (Creatinine every Wednesday and ), Vancomycin Trough (Labs every Wednesday - copy to ct and Dr Carolina Lewis) Additional Information: Please have patient follow-up with Dr Carolina Lewis in 2-3 weeks - Patient Information Allergies No Known Allergies Allergy (Verified 04/22/18 15:52)
[2018-05-03 00:57] VITALS: RESP 18
[2018-05-03] MEDS: Morphine Sulfate 15 MG SR Tablet PO SCH ×2 (06:24→15:15)
[2018-05-03 06:29] LABS: Baso # (Auto) 0.1 th/mm3 (0.0-0.2); Baso % (Auto) 0.6 % (0.0-2.0); Eos # (Auto) 0.3 th/mm3 (0.0-0.4); Eos % (Auto) 2.2 % (0.0-4.0); Hematocrit 36.2 % (39.0-51.0); Hemoglobin 12.7 gm/dL (13.0-17.0); Lymph # (Auto) 1.6 th/mm3 (1.0-4.8); Lymph % (Auto) 13.8 % (9.0-44.0); Mean Corpuscular HGB Conc 35.1 % (32.0-36.0); Mean Corpuscular Volume 88.3 fL (80.0-100.0); Mono # (Auto) 1.2 th/mm3 (0.0-0.9); Mono % (Auto) 10.4 % (0.0-8.0); Neut # (Auto) 8.6 th/mm3 (1.8-7.7); Platelet Count 306 th/mm3 (150-450); Red Cell Distribution Width 13.7 % (11.6-17.2); White Blood Count 11.7 th/mm3 (4.0-11.0)
[2018-05-03 07:01] LABS: Alanine Aminotransferase 69 U/L (12-78); Albumin 2.9 g/dL (3.4-5.0); Alkaline Phosphatase 91 U/L (45-117); Anion Gap 7 meq/L (5-15); Aspartate Aminotransferase 37 U/L (15-37); Blood Urea Nitrogen 10 mg/dL (7-18); Calcium 8.7 mg/dL (8.5-10.1); Carbon Dioxide 28.3 meq/L (21.0-32.0); Chloride 105 meq/L (98-107); Glomerular Filtration Rate Greater Than 89 mL/min (>89); Glucose,Random 103 mg/dL (74-106); Magnesium 2.1 mg/dL (1.5-2.5); Sodium 140 meq/L (136-145); Total Protein 6.7 g/dL (6.4-8.2)
[2018-05-03] MEDS ORDERED: Heparin Central Flush 100 UNIT/ML 5 ML Vial IV.FLUSH SCH (09:00)
[2018-05-03] MEDS: Baclofen 10 MG Tablet PO SCH (10:00)
[2018-05-03] MEDS: clonazePAM 1 MG Tablet PO SCH (10:00)
[2018-05-03] MEDS: Multivitamin/Minerals Therapeutic Tablet PO SCH (10:00)
[2018-05-03] MEDS: Senna/Docusate Sodium 8.6/50 MG Tablet PO SCH (10:02)
--- NOTE | 2018-05-03 11:01 | P.PNID ---
Subjective Remarks: Patient is a 62-year-old male, presented to the hospital for further evaluation of progressive swelling redness and discoloration on his left thigh. Patient noted initially what looks like a puncture wound on his medial left thigh. He went to his primary care doctor, and was given a prescription for Bactrim. Patient stated that there was no redness. It has a brownish color to it. Over the next day, he developed increasing redness, swelling, and there was an area that looks purplish in color. He was also getting painful. He was also having fever and chills, with temperature documented to around 102. He has not had any sore throat or any respiratory complaint. No nausea or vomiting or any diarrhea. He denies any urinary complaints. He does not remember having any insect bite, or any trauma to his left lower extremity. Patient was seen by orthopedic, and there was some concern about progressive infection, and he went to surgery today. He apparently had findings of necrotizing fasciitis, and there was significant purulence seen. He has a wound VAC in place. His white count is elevated. He has been febrile. He is currently on Zosyn and vancomycin. Infectious disease consultation has been requested to evaluate the patient. Notes reviewed D/W RN Spoke with CM Vanco trough ok on current dosing Temps ok WBC normal Clinically better Antibiotics: Vancomycin Lines: PIV Past Medical History: Hypertension Arthritis Back and neck OR Allergies/Adverse Reactions: Allergies No Known Allergies Allergy (Verified 04/22/18 15:52) Objective Vital Signs 05/02/18 12:00 05/02/18 16:00 05/02/18 20:00 Temperature 97.6 F 98 F 97.9 F Pulse Rate 75 75 89 Respiratory Rate 18 18 17 Blood Pressure 135/75 150/83 H 179/77 H Pulse Oximetry 95 93 L 96 05/03/18 00:00 05/03/18 08:00 Temperature 97.7 F 97.4 F L Pulse Rate 80 85 Respiratory Rate 18 18 Blood Pressure 167/80 H 172/81 H Pulse Oximetry 96 94 L Intake & Output 05/02/18 05/03/18 05/03/18 18:59 06:59 18:59 Intake Total 1517.5 / 1517.5 517.5 / 517.5 Output Total 850 / 850 Balance 1517.5 / 1517.5 -332.5 / -332.5 Weight 111.9 kg 111.1 kg Intake: IV 1517.5 / 1517.5 517.5 / 517.5 LR 1000 mL Inj 1,000 ML @ 80 1000 / 1000 mls/hr IV.CONT .[id number] [facility] Rx# :[id number] Vancomycin Inj 1,750 MG In NS 517.5 / 517.5 517.5 / 517.5 Inj 500 ML @ 250 mls/hr IV.SIG Q12H [facility] Rx#:[id number] Output: Urine 850 / 850 Other: Date of Last Bowel Movement 05/02/18 04/23/18 08:50 Wound - Thigh Acid Fast Bacilli Smear - Final No acid fast bacilli seen 04/23/18 08:50 Wound - Thigh Mycobacterial Culture - Preliminary No growth in 1 week 04/23/18 08:50 Wound - Thigh Fungal Smear - Final No fungal elements seen 04/23/18 08:50 Wound - Thigh Fungal Culture - Preliminary No growth in 1 week 04/23/18 08:50 Wound - Thigh Acid Fast Bacilli Smear - Final No acid fast bacilli seen 04/23/18 08:50 Wound - Thigh Mycobacterial Culture - Preliminary No growth in 1 week 04/23/18 08:50 Wound - Thigh Fungal Smear - Final No fungal elements seen 04/23/18 08:50 Wound - Thigh Fungal Culture - Preliminary No growth in 1 week 04/23/18 08:50 Wound - Thigh Fungal Smear - Final No fungal elements seen 04/23/18 08:50 Wound - Thigh Fungal Culture - Preliminary No growth in 1 week 04/23/18 08:50 Wound - Thigh Acid Fast Bacilli Smear - Final No acid fast bacilli seen 04/23/18 08:50 Wound - Thigh Mycobacterial Culture - Preliminary No growth in 1 week 04/23/18 08:50 Wound - Thigh Acid Fast Bacilli Smear - Final No acid fast bacilli seen 04/23/18 08:50 Wound - Thigh Mycobacterial Culture - Preliminary No growth in 1 week 04/23/18 08:50 Wound - Thigh Fungal Smear - Final No fungal elements seen 04/23/18 08:50 Wound - Thigh Fungal Culture - Preliminary No growth in 1 week 04/23/18 08:50 Tissue - Thigh Fungal Smear - Final No fungal elements seen 04/23/18 08:50 Tissue - Thigh Fungal Culture - Preliminary No growth in 1 week 04/23/18 08:50 Tissue - Thigh Acid Fast Bacilli Smear - Final No acid fast bacilli seen 04/23/18 08:50 Tissue - Thigh Mycobacterial Culture - Preliminary No growth in 1 week Lab - Hematology Results 05/02/18 05/03/18 06:29 06:17 WBC 12.8 H 11.7 H RBC 4.62 4.10 L Hgb 13.9 12.7 L Hct 41.9 36.2 L MCV 90.6 88.3 MCH 30.2 31.0 MCHC 33.3 35.1 RDW 13.5 13.7 Plt Count 381 306 MPV 7.5 7.0 Neut % (Auto) 70.5 H 73.0 H Lymph % (Auto) 17.0 13.8 [place] % (Auto) 10.3 H 10.4 H Eos % (Auto) 1.7 2.2 Baso % (Auto) 0.5 0.6 Neut # (Auto) 9.0 H 8.6 H Lymph # (Auto) 2.2 1.6 [place] # (Auto) 1.3 H 1.2 H Eos # (Auto) 0.2 0.3 Baso # (Auto) 0.1 0.1 WBC Differential . . Differential Comment Auto diff final Auto diff final Lab - Chemistry Results 05/02/18 05/03/18 06:29 06:17 Sodium 139 140 Potassium 4.0 4.0 Chloride 104 105 Carbon Dioxide 26.0 28.3 Anion Gap 9 7 BUN 10 10 Creatinine 0.84 0.83 Estimated GFR Greater than 89 Greater than 89 Random Glucose 94 103 Calcium 8.8 8.7 Phosphorus 3.1 3.0 Magnesium 2.3 2.1 Total Bilirubin 0.6 0.6 AST 18 37 ALT 49 69 Alkaline Phosphatase 66 91 Total Protein 7.4 D 6.7 D Albumin 3.2 L 2.9 L Imaging: ITS Impressions Femur MRI 04/22/18 00:00 CONCLUSION: 1. Extensive cellulitis of the right thigh especially medially without evidence for osteomyelitis or discrete abscess. Femur X-Ray 04/22/18 16:21 CONCLUSION: Negative examination Femur CT 04/22/18 16:57 CONCLUSION: 1. Impressive subcutaneous edema across the upper leg. The soft tissue edema does extend into the peripheral fibers of the vastus medialis muscle and the sartorius muscle without obvious drainable fluid collection or mass effect on the musculature. Physical Exam: GENERAL: awake and alert, NAD SKIN: Warm and dry. No generalized rash. HEAD: Atraumatic. Normocephalic. No temporal wasting, or tenderness. EYES: [place] conjunctiva. No petechia or hemorrhage. No scleral icterus. No injection or drainage. EARS, NOSE AND THROAT: Nose without bleeding or purulent nasal discharge. Mucous membranes pink and moist. No oral lesions noted. NECK: Trachea midline. Supple and not tender, no meningeal signs CARDIOVASCULAR: Regular rate and rhythm. No murmurs, rubs or gallops heard RESPIRATORY: Clear to auscultation. Breath sounds equal bilaterally. No rales , wheezing or rhonchi ABDOMEN: Soft, non-tender, nondistended. Bowel sounds present and normoactive. No guarding. No rebound. No organomegaly. EXTREMITIES: No clubbing, cyanosis. Dry incisions L thigh, small amount discharge from previous drain sites, ecchymoses medial distal L thigh still present but overalll better, redness much improved. Swelling better. NEUROLOGICAL: Grossly within normal limits. PSYCHIATRIC: calm and cooperative. LINE: No evidence of infection Assessment and Plan (1) Necrotizing fasciitis of pelvic region and thigh Status: Acute Code(s): M72.6 - Necrotizing fasciitis (2) MRSA (methicillin resistant Staphylococcus aureus) infection Status: Acute Code(s): A49.02 - Methicillin resistant Staphylococcus aureus infection, unspecified site - Plan Impression Necrotizing fasciitis L thigh - prelim C/S MRSA Sepsis due to above Fevers, better leukocytosis, resolved Recommendation Continue vanco - plan 4 more weeks on D/C - end date May 29 Abx infusion form filled out D/W sister and patient regarding IV Abx and treatment plan, and answered all their questions He will follow-up with Dr Lewis as outpatient Also has follow-up with ortho - Dr Krysta Sprague for D/C from ID standpoint after getting his IV Vanco dose today D/W RN Spoke with CINDY D/W Rosy NOWAK (KIKE)
--- NOTE | 2018-05-03 11:58 | P.DS ---
Date of admission: 04/22/18 17:51 Primary care physician: Reggie Escalante DO Brief History from admission: Mr. Burris is a 62 year-old male with a history of arthritis, chronic back and neck pain, and hypertension who presented to the [facility] complaining of fever (up to 103 starting 04/20), left thigh pain with purplish discoloration of skin, and swelling since Wednesday 04/18. He was found to have sepsis from left thigh cellulitis with concern for necrotizing fasciitis and was transferred to [facility] upon the recommendation of the orthopedic surgeon for further evaluation and management under the hospitalist service. MRI upon arrival showed extensive cellulitis of right thigh with no osteomyelitis or discrete abscess. The patient reports that symptoms began with a possible spider bite to left thigh. He was placed on bactrim by his PCP but his symptoms continued to progress and worsen throughout the week despite treatment. His temperature was 102.9 on arrival. Denies any history of diabetes mellitus. . Patient update on day of discharge: Follow-up necrotizing fasciitis of pelvic region and thigh, MRSA infection, hypertension, osteoarthritis, chronic pain. Patient seen and examined, laying in bed family at bedside. Discussed discharge planning, family/claims to be his sister stated will take her of him at home with home health care. Patient stated pain control with pain medication. Patient denies any headache or dizziness, denies any chest pain or shortness of breath, denies any abdominal pain, nausea, vomiting, diarrhea or constipation. Patient denies any fever or chills. Discussed discharge planning with social work coordinator, set up with home health care nurse for IV antibiotic treatment. Discussed discharge planning with ID, cleared to discharge and IV antibiotic. DS: Diagnosis - Discharge Diagnosis (1) Hypertension Status: Acute (2) Osteoarthritis Status: Acute (3) Chronic pain Status: Acute (4) Sepsis affecting skin Status: Acute (5) Necrotizing fasciitis of pelvic region and thigh Status: Acute (6) MRSA (methicillin resistant Staphylococcus aureus) infection Status: Acute DS: Medications - Discharge Medications Prescriptions: vancomycin 1,750 mg IV Q12H 26 Days #53 ea DS: Summary Hospital Course: Mr. Burris is a 62 year-old male with a history of arthritis, chronic back and neck pain, and hypertension who presented to the [facility] complaining of fever (up to 103 starting 04/20), left thigh pain with purplish discoloration of skin, and swelling since Wednesday 04/18. He was found to have sepsis from left thigh cellulitis with concern for necrotizing fasciitis and was transferred to [facility] upon the recommendation of the orthopedic surgeon for further evaluation and management under the hospitalist service. MRI upon arrival showed extensive cellulitis of right thigh with no osteomyelitis or discrete abscess. The patient reports that symptoms began with a possible spider bite to left thigh. Patient was admitted and treated for sepsis due to necrotizing fasciitis of the left left thigh with preliminary culture of MRSA. Infectious disease consulted and was treated with IV antibiotic. ID recommended , plan for IV antibiotic with Vanco for 4 more weeks until May 29 patient will be discharged discharge on IV antibiotic and to follow-up with Dr. Lewis as an outpatient infectious disease. - Time Spent with Patient Total time spent providing and/or coordinating discharge services: Greater than 30 minutes Exam Vital signs: Vital Signs 05/02/18 12:00 05/02/18 16:00 05/02/18 20:00 Temperature 97.6 F 98 F 97.9 F Pulse Rate 75 75 89 Respiratory Rate 18 18 17 Blood Pressure 135/75 150/83 H 179/77 H Pulse Oximetry 95 93 L 96 05/03/18 00:00 05/03/18 08:00 Temperature 97.7 F 97.4 F L Pulse Rate 80 85 Respiratory Rate 18 18 Blood Pressure 167/80 H 172/81 H Pulse Oximetry 96 94 L Intake & Output 05/02/18 05/03/18 05/03/18 18:59 06:59 18:59 Intake Total 1517.5 / 1517.5 517.5 / 517.5 Output Total 850 / 850 Balance 1517.5 / 1517.5 -332.5 / -332.5 Weight 111.9 kg 111.1 kg Intake: IV 1517.5 / 1517.5 517.5 / 517.5 LR 1000 mL Inj 1,000 ML @ 80 1000 / 1000 mls/hr IV.CONT .[id number] MARYURI Rx# :[id number] Vancomycin Inj 1,750 MG In NS 517.5 / 517.5 517.5 / 517.5 Inj 500 ML @ 250 mls/hr IV.SIG Q12H MARYURI Rx#:[id number] Output: Urine 850 / 850 Other: Date of Last Bowel Movement 05/02/18 Narrative: GENERAL: Well-developed, well-nourished, elderly-looking male in no apparent distress SKIN: Warm and dry. HEAD: Atraumatic. Normocephalic. EYES: Pupils equal and round. No scleral icterus. No injection or drainage. ENT: No nasal bleeding or discharge. Mucous membranes pink and moist. NECK: Trachea midline. No JVD. CARDIOVASCULAR: Regular rate and rhythm. RESPIRATORY: No accessory muscle use. Clear to auscultation. Breath sounds equal bilaterally. GASTROINTESTINAL: Abdomen soft, non-tender, nondistended. Hepatic and splenic margins not palpable. MUSCULOSKELETAL: Extremities without clubbing, cyanosis. No obvious deformities. Dry incisions L thigh, small amount discharge from previous drain sites, ecchymoses medial distal L thigh, slight redness. Slight edema NEUROLOGICAL: Awake and alert. No obvious cranial nerve deficits. Motor grossly within normal limits. Generalized weakness, moving all 4 extremities normal speech. PSYCHIATRIC: Appropriate mood and affect; insight and judgment normal. Results Procedures completed during hospitalization: s/p Left thigh incision and debridement of necrotizing fasciitis with 10 cm incision and 40 cm x 40 cm square surface of debridement of necrotic fat 10-22 status post irrigation and debridement of left thigh infection by Dr. Jones Labs on day of discharge: Labs from last 24 hours 05/03/18 05/03/18 05/02/18 06:17 06:17 13:45 WBC 11.7 H RBC 4.10 L Hgb 12.7 L Hct 36.2 L MCV 88.3 MCH 31.0 MCHC 35.1 RDW 13.7 Plt Count 306 MPV 7.0 Neut % (Auto) 73.0 H Lymph % (Auto) 13.8 [place] % (Auto) 10.4 H Eos % (Auto) 2.2 Baso % (Auto) 0.6 Neut # (Auto) 8.6 H Lymph # (Auto) 1.6 [place] # (Auto) 1.2 H Eos # (Auto) 0.3 Baso # (Auto) 0.1 WBC Differential . Differential Comment Auto diff final Sodium 140 Potassium 4.0 Chloride 105 Carbon Dioxide 28.3 Anion Gap 7 BUN 10 Creatinine 0.83 Estimated GFR Greater than 89 Random Glucose 103 Calcium 8.7 Phosphorus 3.0 Magnesium 2.1 Total Bilirubin 0.6 AST 37 ALT 69 Alkaline Phosphatase 91 Total Protein 6.7 D Albumin 2.9 L Vancomycin Trough 12.9 H Preliminary micro results at discharge 04/23/18 08:50 Mycobacterial Culture - Preliminary Wound - Thigh No growth in 1 week 04/23/18 08:50 Fungal Culture - Preliminary Wound - Thigh No growth in 1 week 04/23/18 08:50 Mycobacterial Culture - Preliminary Wound - Thigh No growth in 1 week 04/23/18 08:50 Fungal Culture - Preliminary Wound - Thigh No growth in 1 week 04/23/18 08:50 Fungal Culture - Preliminary Wound - Thigh No growth in 1 week 04/23/18 08:50 Mycobacterial Culture - Preliminary Wound - Thigh No growth in 1 week 04/23/18 08:50 Mycobacterial Culture - Preliminary Wound - Thigh No growth in 1 week 04/23/18 08:50 Fungal Culture - Preliminary Wound - Thigh No growth in 1 week 04/23/18 08:50 Fungal Culture - Preliminary Tissue - Thigh No growth in 1 week 04/23/18 08:50 Mycobacterial Culture - Preliminary Tissue - Thigh No growth in 1 week - Impressions ITS Impressions Femur MRI 04/22/18 00:00 CONCLUSION: 1. Extensive cellulitis of the right thigh especially medially without evidence for osteomyelitis or discrete abscess. Femur X-Ray 04/22/18 16:21 CONCLUSION: Negative examination Femur CT 04/22/18 16:57 CONCLUSION: 1. Impressive subcutaneous edema across the upper leg. The soft tissue edema does extend into the peripheral fibers of the vastus medialis muscle and the sartorius muscle without obvious drainable fluid collection or mass effect on the musculature. Discharge Plan - Discharge Disposition Patient Disposition: /Home Health Service - Discharge Condition Condition: Fair - Discharge Order Discharge Orders: Discharge Order (Routine); Ordered 05/03/18 Ordered By: Amy Duke [facility] for Discharge (Routine); Ordered 05/02/18 Ordered By: Donald Estes - Discharge Details Anticipated Discharge Date: 05/03/18 Discharge Comment: follow up with Dr Lewis 1-2 weeks - Physicians Team Primary Care Provider: Reggie Escalante Attending Provider: Reza Danielle Other Providers: Cristhian Chaparro MD ; Brianne Jaramillo MD ; William Jones MD
[2018-05-03] MEDS: Vancomycin Inj 1,750 MG in Sodium Chlor 0.9% Inj 500 ML IV.SIG SCH (12:15)
[2018-05-03 13:01] VITALS: BP 149/74; PULSE 84; TEMP 98.3; O2SAT 95
--- NOTE | 2018-05-03 15:27 | P.DCO ---
- Physical Therapy Order: Evaluate and treat - Home Health Nursing Order: Medical education, Signs/symptoms of disease process, Medication education-adverse effect, Wound care and dressing changes, Nursing assessment with vital signs, IV medication administration - Case Management Consult Yes - Certification I have seen patient Dank Burris III on 05/03/18. My clinical findings support the need for the requested home health care services because: Limited mobility due to disease progression, Deconditioned with increased weakness, Limited ability to care for self, Infection with risk of complications I certify that my clinical findings support that this patient is homebound because: Post-op weakness, Unsteady gait/balance, Unsafe to leave home unassisted
== END 2018-05-03 16:21 | disposition home health service (06) ==
LOC: PHED 15:50 → PHEDH 17:51 → N07 19:34
PROVIDERS: ADMIT Hospitalist; ATTEND Hospitalist